=== PATIENT | male | born 1955 ===

== ENCOUNTER 2016-05-09 07:05 | Observation (INO) | payer OTHER ==
--- NOTE | 2016-05-09 07:49 | ED PDOC ---
HPI: General Adult Time Seen by Provider: 05/09/16 07:37 Chief Complaint (Nursing): Abdominal Pain Chief Complaint (Provider): abdominal swelling History Per: Patient History/Exam Limitations: no limitations Additional Complaint(s): 60yo male w/ Hx Hep C, cirrhosis, ascites, comes to the ED complaining of abdominal bloating. States he was seen by Dr. Ponce and referred here for further evaluation. Denies any pain but notes he was previously admitted to [place] for similar complaints. PMD: Rosario Past Medical History Reviewed: Historical Data, Nursing Documentation, Vital Signs Vital Signs: Last Vital Signs Temp 98 F 05/09/16 14:13 Pulse 73 05/09/16 15:23 Resp 20 05/09/16 15:23 BP 110/70 05/09/16 15:23 Pulse Ox 98 05/09/16 15:23 - Medical History PMH: Arthritis, Hepatitis (C), HTN, Pancreatitis, Peripheral Edema Denies: HIV, Chronic Kidney Disease - Family History Family History: States: Unknown Family Hx - Social History Current smoker - smoking cessation education provided: Yes - Immunization History Hx Tetanus Toxoid Vaccination: No Hx Influenza Vaccination: No Hx Pneumococcal Vaccination: No - Home Medications Home Medications: Ambulatory Orders Medication Instructions Recorded rifAXIMin [Xifaxan] 550 mg PO BID 04/10/16 Pantoprazole [Protonix] 40 mg PO DAILY #30 ect 04/12/16 Eplerenone [Inspra] 50 mg PO DAILY 05/09/16 Ergocalciferol (Vitamin D2) 50,000 unit PO QWK 05/09/16 [Vitamin D2] Ferrous Sulfate [Feosol] 325 mg PO TID 05/09/16 Furosemide [Lasix] 20 mg PO DAILY 05/09/16 Lactulose [Generlac] 30 ml PO TID PRN 05/09/16 Nadolol [Corgard] 20 mg PO DAILY 05/09/16 Pramipexole [Mirapex] 0.25 mg PO HS 05/09/16 - Allergies Allergies/Adverse Reactions: Allergies Allergy/AdvReac Type Severity Reaction Status Date / Time No Known Allergies Allergy Verified 05/09/16 07:39 Review of Systems ROS Statement: Except As Marked, All Systems Reviewed And Found Negative Gastrointestinal: Positive for: Other (bloating). Negative for: Abdominal Pain Physical Exam - Reviewed Nursing Documentation Reviewed: Yes Vital Signs Reviewed: Yes - Physical Exam Appears: Positive for: Well, Non-toxic, No Acute Distress Head Exam: Positive for: ATRAUMATIC, NORMAL INSPECTION, NORMOCEPHALIC Skin: Positive for: Warm, Dry Eye Exam: Positive for: EOMI, PERRL Cardiovascular/Chest: Positive for: Regular Rate, Rhythm Respiratory: Positive for: Normal Breath Sounds. Negative for: Rales, Rhonchi, Wheezing Gastrointestinal/Abdominal: Positive for: Soft, Distended (softly), Asicites, Other (site of prior drain on left abdomen is clean, intact, -erythema.). Negative for: Tenderness (focal) Extremity: Positive for: Normal ROM Neurologic/Psych: Positive for: Alert, Oriented - Laboratory Results Result Diagrams: 05/09/16 08:12 05/09/16 08:12 - ECG O2 Sat by Pulse Oximetry: 98 (RA) Pulse Ox Interpretation: Normal Medical Decision Making Medical Decision Makin: US Abdomen, Labs ordered. 1240 US Abdomen Impression Cirrhotic appearance of the liver with heterogenous echogenic hepatic parenchyma and nodular hepatic contour. Small to moderate ascites. Wall echo shadow appearance of the gallbladder compatible with cholelithiasis. Gallbladder wall thickness is top-normal. Negative sonographic Aden's sign as assessed by the business analysis specialist. Paracentesis performed by Dr Cali. Remains hemodynamically stable 90min after procedure. Feels better. DC from ED, followup PMD with liver instructions. Disposition - Clinical Impression Clinical Impression: Ascites - Patient ED Disposition Is Patient to be Admitted: No Counseled Patient/Family Regarding: Studies Performed, Diagnosis, Need For Followup - Disposition Disposition: Routine/Home Disposition Time: 12:46 Condition: STABLE Additional Comments - Additional Comments Additional Comments: Scribe Attestation: Documented by Garrick Lujan acting as a scribe for Musa Oneil DO. Provider Scribe Attestation: All medical record entries made by the Scribe were at my direction and personally dictated by me. I have reviewed the chart and agree that the record accurately reflects my personal performance of the history, physical exam, medical decision making, and the department course for this patient. I have also personally directed, reviewed, and agree with the discharge instructions and disposition.
[2016-05-09 08:20] LABS: BASO # 0.1 K/uL (0.0-0.2); BASO % 1.2 % (0.0-2.0); EOS # 0.2 K/uL (0.0-0.7); EOS % 3.8 % (0.0-4.0); HEMATOCRIT 29.4 % (35.0-51.0); LYMPH # 1.1 K/uL (1.0-4.3); LYMPH % 24.5 % (20.0-40.0); MEAN CELL VOLUME 100.6 fl (80.0-94.0); MEAN CORPUSCULAR HEMOGLOBIN 34.4 pg (27.0-31.0); MEAN CORPUSCULAR HGB CONC 34.2 g/dL (33.0-37.0); MEAN PLATELET VOLUME 9.3 fl (7.2-11.7); MONO # 0.6 K/uL (0.0-0.8); MONO % 13.1 % (0.0-10.0); NEUT # 2.5 K/uL (1.8-7.0); NEUT % 57.4 % (50.0-75.0); NRBC % 0.1 % (0.0-0.0); RED CELL DISTRIBUTION WIDTH 17.7 % (11.5-14.5); WHITE BLOOD COUNT 4.4 K/uL (4.8-10.8)
[2016-05-09 08:27] LABS: ALB/GLOB RATIO 0.6 (1.0-2.1); ALKALINE PHOSPHATASE 162 U/L (38-126); ALT/SGPT 55 U/L (21-72); AST/SGOT 84 U/L (17-59); BILIRUBIN,TOTAL 0.7 mg/dl (0.2-1.3); BLOOD UREA NITROGEN 27 mg/dl (9-20); CALCIUM 8.4 mg/dL (8.4-10.2); CARBON DIOXIDE 25 mmol/L (22-30); CHLORIDE 109 mmol/L (98-107); GFR AFRICAN-AMERICAN > 60; GLUCOSE,RANDOM 108 mg/dL (75-110); LIPASE 289 U/L (23-300); POTASSIUM 4.1 MMOL/L (3.6-5.0); SODIUM 145 mmol/l (132-148); TOTAL PROTEIN 7.1 G/DL (6.3-8.2)
[2016-05-09 08:57] LABS: PARTIAL THROMBOPLASTIN TIME 29.2 SECONDS (23.3-32.5)
--- NOTE | 2016-05-09 09:22 | US ---
HISTORY: evaluate for ascites COMPARISON: CT abdomen pelvis with contrast performed 04/10/16 TECHNIQUE: Sonographic evaluation of the right upper quadrant of the abdomen. FINDINGS: Examination limited by patient difficulty with breath hold. LIVER: Measures 12.7 cm in length. Heterogeneous echogenic hepatic parenchyma. Nodular hepatic contour. No focal hepatic mass identified. No intrahepatic bile duct dilatation. GALLBLADDER: Gallbladder wall appears top normal measuring approximately 3 mm. No evidence of gallbladder wall thickening. Negative sonographic Aden sign. Wall echo shadow appearance of the gallbladder consistent with cholelithiasis. COMMON BILE DUCT: Measures 4 mm. PANCREAS: Not well-visualized. RIGHT KIDNEY: Measures 10.1 x 5.8 x 4.4 cm. No obstructing calculus or hydronephrosis. AORTA: Limited visualization appears grossly unremarkable. IVC: Limited visualization appears grossly unremarkable. OTHER FINDINGS: Small to moderate abdominal ascites. IMPRESSION: Limited study. Cirrhotic appearance of the liver with heterogeneous echogenic hepatic parenchyma and nodular hepatic contour. Small to moderate abdominal ascites. Wall echo shadow appearance of the gallbladder compatible with cholelithiasis. Gallbladder wall thickness is top-normal. Negative sonographic Aden's sign as assessed by the urban design consultant.
[2016-05-09 10:41] LABS: URINE BILIRUBIN NEGATIVE (NEGATIVE); URINE BLOOD NEGATIVE (NEGATIVE); URINE COLOR YELLOW (YELLOW); URINE GLUCOSE (UA) NEGATIVE (Normal); URINE KETONE TRACE mg/dL (NEGATIVE); URINE PROTEIN 100 mg/dL (NEGATIVE)
[2016-05-09 10:42] LABS: RBC URINE 4 /hpf (0-3); URINE BACTERIA RARE (<OCC); URINE LEUKOCYTE ESTERASE NEGATIVE Leu/uL (Negative); WBC URINE < 1 /hpf (0-5)
[2016-05-09] MEDS ORDERED: Lidocaine 1% Inj (20ml) ONE (13:38)
--- NOTE | 2016-05-09 14:42 | PCM.SURG1 ---
Surgeon's Initial Post Op Note - Surgeon's Notes Surgeon: Karely Script Girl: None Type of Anesthesia: Local Pre-Operative Diagnosis: Ascites. Operative Findings: Ascites. Post-Operative Diagnosis: Ascites. Operation Performed: Paracentesis Specimen/Specimens Removed: Approx 2.8L of clear pale yellow fluid aspirated. Estimated Blood Loss: EBL {In ML}: 1 Date of Surgery/Procedure: 05/09/16 Time of Surgery/Procedure: 13:00
[2016-05-09 15:24] VITALS: O2SAT 98
--- NOTE | 2016-05-09 16:23 | VASCULAR ---
Ultrasound guided paracentesis. Clinical History: Ascites with abdominal pain and distension. Technique: The relative risks and indications for the procedure were explained to the patient and informed written consent obtained. Sonography of the abdomen was performed in a supine position. This revealed a small amount of non-loculated ascites, greatest in the right lower quadrant. A puncture site was selected and the area was prepped and draped in the usual sterile fashion. 1% lidocaine was used to anesthetize the skin and soft tissues. A 5 Georgian paracentesis catheter was trocared into the right lower quadrant under real time ultrasound guidance. A permanent image was stored. Approximately 2800 cc of shaista fluid aspirated. Impression: Ultrasound-guided paracentesis in the right lower quadrant. Approximately 2800 cc of shaista colored fluid was aspirated.
[2016-05-09 17:34] VITALS: PULSE 78
[2016-05-09 17:35] VITALS: BP 128/76; RESP 19; TEMP 97.7
== END 2016-05-09 18:06 | disposition home or self-care (01) ==
LOC: H.ER 07:05 → H.EROBSV 12:46
PROVIDERS: ADMIT Emergency Medicine; ATTEND Emergency Medicine
DX: R18.8 Other ascites (principal); K74.60 Unspecified cirrhosis of liver; Z86.19 Personal history of other infectious and parasitic diseases

== ENCOUNTER 2016-06-13 10:55 | Emergency (ER) | payer OTHER ==
[2016-06-13 11:21] VITALS: RESP 18
--- NOTE | 2016-06-13 11:37 | ED PDOC ---
HPI: General Adult Time Seen by Provider: 06/13/16 11:23 Chief Complaint (Nursing): Medical Clearance History Per: Patient (Increased abd distention worse over past 3 days. No fever or pain) Onset/Duration Of Symptoms: Days (3) Current Symptoms Are (Timing): Still Present Severity: Moderate Pain Scale Rating Of: 0 Past Medical History Vital Signs: Last Vital Signs Temp 98.1 F 06/13/16 13:54 Pulse 71 06/13/16 14:44 Resp 18 06/13/16 13:54 BP 108/66 06/13/16 14:44 Pulse Ox 99 06/13/16 13:54 - Medical History PMH: Arthritis, Hepatitis (C), HTN, Pancreatitis, Peripheral Edema Denies: HIV, Chronic Kidney Disease Other PMH: Ascites - Family History Family History: States: Unknown Family Hx - Immunization History Hx Tetanus Toxoid Vaccination: No Hx Influenza Vaccination: No Hx Pneumococcal Vaccination: No - Home Medications Home Medications: Ambulatory Orders Medication Instructions Recorded rifAXIMin [Xifaxan] 550 mg PO Q12 04/10/16 Eplerenone [Inspra] 50 mg PO DAILY 05/09/16 Furosemide [Lasix] 40 mg PO DAILY 05/09/16 Lactulose [Generlac] 45 ml PO DAILY 05/09/16 Nadolol [Corgard] 20 mg PO DAILY 05/09/16 Ropinirole HCl [Requip] 2 tab PO HS 06/13/16 - Allergies Allergies/Adverse Reactions: Allergies Allergy/AdvReac Type Severity Reaction Status Date / Time No Known Allergies Allergy Verified 06/13/16 11:23 Review of Systems ROS Statement: Except As Marked, All Systems Reviewed And Found Negative Gastrointestinal: Positive for: Other (Distention) Physical Exam - Reviewed Nursing Documentation Reviewed: Yes Vital Signs Reviewed: Yes - Physical Exam Appears: Positive for: Non-toxic, No Acute Distress Head Exam: Positive for: ATRAUMATIC, NORMAL INSPECTION, NORMOCEPHALIC Skin: Positive for: Normal Color, Warm, DRY Eye Exam: Positive for: EOMI, Normal appearance, PERRL ENT: Positive for: Normal ENT Inspection Neck: Positive for: Normal, Painless ROM Cardiovascular/Chest: Positive for: Regular Rate, Rhythm Respiratory: Positive for: CNT, Normal Breath Sounds Gastrointestinal/Abdominal: Positive for: Bowel Sounds, Soft, Distended, Asicites (tense with fluid waves) Back: Positive for: Normal Inspection Extremity: Positive for: Swelling Neurologic/Psych: Positive for: Alert, Oriented - Laboratory Results Result Diagrams: 06/13/16 11:57 06/13/16 11:57 - ECG O2 Sat by Pulse Oximetry: 100 Disposition - Clinical Impression Clinical Impression: Liver cirrhosis, Ascites - Patient ED Disposition Is Patient to be Admitted: No - Disposition Referrals: [facility] [Outside] Disposition: Routine/Home Disposition Time: 14:52 Condition: FAIR Instructions: Ascites (ED), Abdominal Paracentesis (DC)
[2016-06-13 12:07] LABS: BASO # 0.1 K/uL (0.0-0.2); BASO % 1.1 % (0.0-2.0); EOS # 0.1 K/uL (0.0-0.7); EOS % 1.6 % (0.0-4.0); HEMATOCRIT 25.1 % (35.0-51.0); LYMPH # 1.3 K/uL (1.0-4.3); LYMPH % 23.6 % (20.0-40.0); MEAN CORPUSCULAR HGB CONC 32.7 g/dL (33.0-37.0); MEAN PLATELET VOLUME 8.8 fl (7.2-11.7); MONO # 0.8 K/uL (0.0-0.8); MONO % 13.7 % (0.0-10.0); NEUT # 3.4 K/uL (1.8-7.0); NRBC % 0.1 % (0.0-0.0); RED CELL DISTRIBUTION WIDTH 17.9 % (11.5-14.5); WHITE BLOOD COUNT 5.6 K/uL (4.8-10.8)
[2016-06-13 12:11] LABS: MEAN CELL VOLUME 97.8 fl (80.0-94.0)
[2016-06-13 12:24] LABS: ALKALINE PHOSPHATASE 143 U/L (38-126); ALT/SGPT 55 U/L (21-72); AST/SGOT 84 U/L (17-59); BILIRUBIN,TOTAL 0.9 mg/dl (0.2-1.3); BLOOD UREA NITROGEN 35 mg/dl (9-20); CALCIUM 8.8 mg/dL (8.4-10.2); CARBON DIOXIDE 20 mmol/L (22-30); CHLORIDE 115 mmol/L (98-107); GFR AFRICAN-AMERICAN > 60; GLUCOSE,RANDOM 101 mg/dL (75-110); POTASSIUM 5.3 MMOL/L (3.6-5.0); SODIUM 145 mmol/l (132-148); TOTAL PROTEIN 7.5 G/DL (6.3-8.2)
[2016-06-13 12:27] LABS: ALB/GLOB RATIO 0.6 (1.0-2.1)
[2016-06-13] MEDS ORDERED: Lidocaine 1% Inj (20ml) ONE (13:38)
[2016-06-13 13:56] VITALS: TEMP 98.1
--- NOTE | 2016-06-13 14:28 | PCM.SURG1 ---
Surgeon's Initial Post Op Note - Surgeon's Notes Surgeon: Yadiel Howe MD Community Health Specialist: NONE Type of Anesthesia: Local Pre-Operative Diagnosis: Ascites Operative Findings: US showed a moderate amount of ascites Post-Operative Diagnosis: Ascites Operation Performed: US guided paracentesis. Specimen/Specimens Removed: 3800 cc of clear fluid Estimated Blood Loss: EBL {In ML}: 0 Blood Products Given: N/A Drains Used: No Drains Post-Op Condition: Fair Date of Surgery/Procedure: 06/13/16 Time of Surgery/Procedure: 14:20
[2016-06-13 14:45] VITALS: BP 108/66; PULSE 71
[2016-06-13 14:52] VITALS: O2SAT 100
--- NOTE | 2016-06-13 14:58 | US ---
Date of Procedure: 06/13/2016 PROCEDURE: Ultrasound-guided paracentesis, CPT 06848 Medications: 8cc 1% Lidocaine HISTORY: Ascites, abdominal pain, cirrhosis TECHNIQUE: Following informed consent , the patient was placed supine on the stretcher and the site was marked. A limited abdominal ultrasound was performed that showed a large amount of intra-abdominal fluid. Procedural time out was called and the Pt's abdomen was marked and prepped and draped in the usual sterile fashion. Ultrasound-guided large volume paracentesis performed. A total of 3.8 liters of straw colored fluid was removed without complication. IMPRESSION: Ultrasound-guided large volume paracentesis.
== END 2016-06-13 15:16 | disposition home or self-care (01) ==
LOC: H.ER 10:55
DX: K74.60 Unspecified cirrhosis of liver (principal); R18.8 Other ascites; B19.20 Unspecified viral hepatitis C without hepatic coma

== ENCOUNTER 2016-06-23 11:34 | Day surgery (SDC) | payer OTHER ==
[2016-06-23 11:58] VITALS: BMI 26.7
[2016-06-23 12:03] VITALS: O2SAT 100
[2016-06-23] MEDS ORDERED: Lidocaine 1% Inj (20ml) ONE (13:17)
--- NOTE | 2016-06-23 14:30 | CP.SDSHP ---
Same Day Surgery H & P - History Proposed Procedure: US guided paracentesis. Pre-Op Diagnosis: ascites - Allergies Allergies: Allergies No Known Allergies Allergy (Verified 06/13/16 11:23) - Physical Exam Vital Signs: Vital Signs 06/23/16 06/23/16 06/23/16 12:03 12:06 14:27 Temperature 98.2 F 97.3 F L Pulse Rate 79 79 72 Respiratory 18 18 Rate Blood Pressure 112/79 114/72 O2 Sat by Pulse 100 100 Oximetry Mental Status: Alert & Oriented x3 Neuro: WNL Heart: WNL Lungs: WNL GI: WNL - {Optional Preform as Required} Abdomen: Other (distended, non tender) - Impression Impression: Pt with refractory ascites. Plan US guided paracentesis. Pt. Evaluated Today:Candidate for Anesthesia & Procedure: No Short Stay Discharge - Short Stay Discharge Admitting Diagnosis/Reason for Visit: CIRRHOSIS OF THE LIVER Referrals: Juice Ponce MD [Primary Care Provider] - Progress Note/Discharge Note with Instructions: S/P paracentesis. There were no complications.
--- NOTE | 2016-06-23 14:31 | PCM.SURG1 ---
Surgeon's Initial Post Op Note - Surgeon's Notes Surgeon: Yadiel Howe MD Sporting Goods Salesperson: NONE Type of Anesthesia: Local Pre-Operative Diagnosis: Ascites Operative Findings: US showed a large amount of fluid Post-Operative Diagnosis: Ascites Operation Performed: US guided paracentesis. Specimen/Specimens Removed: 5.2liters of straw colored fluid. Estimated Blood Loss: EBL {In ML}: 1 Blood Products Given: N/A Drains Used: No Drains Post-Op Condition: Fair Date of Surgery/Procedure: 06/23/16 Time of Surgery/Procedure: 14:54
[2016-06-23 15:26] VITALS: BP 113/69; PULSE 83; RESP 18; TEMP 97.7
--- NOTE | 2016-06-23 15:27 | US ---
Date of Procedure: 06/23/2016 PROCEDURE: Ultrasound-guided paracentesis, CPT 37593 Medications: 8 cc 1% Lidocaine HISTORY: Ascites, abdominal pain, cirrhosis TECHNIQUE: Following informed consent , the patient was placed supine on the stretcher and the site was marked. A limited abdominal ultrasound was performed that showed a large amount of intra-abdominal fluid. Procedural time out was called and the Pt's abdomen was marked and prepped and draped in the usual sterile fashion. Ultrasound-guided large volume paracentesis performed. A total of 5.2 liters of straw colored fluid was removed without complication. IMPRESSION: Ultrasound-guided large volume paracentesis.
== END 2016-06-23 15:00 | disposition home or self-care (01) ==
LOC: H.OPSURG 11:34
PROVIDERS: ATTEND Family Medicine
DX: R18.8 Other ascites (principal); K74.60 Unspecified cirrhosis of liver

== ENCOUNTER 2016-07-04 08:30 | Observation (INO) | payer OTHER ==
[2016-07-04 08:31] VITALS: BMI 26.7
--- NOTE | 2016-07-04 09:14 | ED PDOC ---
HPI: General Adult Time Seen by Provider: 07/04/16 09:06 Chief Complaint (Nursing): Abdominal Pain Chief Complaint (Provider): abdominal pain & bloating History Per: Patient History/Exam Limitations: no limitations Additional Complaint(s): 60yo male w/ Hx Hep C, liver cirrhosis, is complaining of abdominal pain since 3 -4am today. Patient states he has paracentesis several weeks ago. Describes pain today as similar to what he experienced when he had food poisoning in the past. He has dizziness. No chest pain, vomit, fever. States chronic diarrhea is associated with lactulose use. Unsure of Hx bacterial peritonitis. PMD: Rosario Hepatology: at [place] Past Medical History Reviewed: Historical Data, Nursing Documentation, Vital Signs Vital Signs: Last Vital Signs Temp 97.5 F L 07/04/16 11:19 Pulse 61 07/04/16 11:45 Resp 18 07/04/16 11:45 BP 104/64 07/04/16 11:45 Pulse Ox 99 07/04/16 11:19 - Medical History PMH: Arthritis, Hepatitis (C), HTN, Pancreatitis, Peripheral Edema Denies: HIV, Chronic Kidney Disease - Family History Family History: States: Unknown Family Hx - Immunization History Hx Tetanus Toxoid Vaccination: No Hx Influenza Vaccination: No Hx Pneumococcal Vaccination: No - Home Medications Home Medications: Ambulatory Orders Medication Instructions Recorded rifAXIMin [Xifaxan] 550 mg PO Q12 04/10/16 Eplerenone [Inspra] 50 mg PO DAILY 05/09/16 Furosemide [Lasix] 40 mg PO DAILY 05/09/16 Lactulose [Generlac] 30 ml PO DAILY PRN 05/09/16 Nadolol [Corgard] 20 mg PO DAILY 05/09/16 Ropinirole HCl [Requip] 1 mg PO HS 06/13/16 Ergocalciferol (Vitamin D2) 50,000 unit PO QWK 07/04/16 [Vitamin D2] Furosemide [Lasix] 20 mg PO QPM 07/04/16 Pantoprazole Sodium [Protonix] 40 mg PO DAILY 07/04/16 - Allergies Allergies/Adverse Reactions: Allergies Allergy/AdvReac Type Severity Reaction Status Date / Time No Known Allergies Allergy Verified 07/04/16 08:49 Review of Systems ROS Statement: Except As Marked, All Systems Reviewed And Found Negative Constitutional: Negative for: Fever, Chills Cardiovascular: Negative for: Chest Pain, Palpitations Respiratory: Negative for: Cough, Shortness of Breath, SOB with Exertion Gastrointestinal: Positive for: Nausea, Abdominal Pain, Diarrhea (chronic), Other (abdominal bloating). Negative for: Vomiting Genitourinary Male: Negative for: Dysuria Neurological: Positive for: Dizziness. Negative for: Weakness, Numbness Physical Exam - Reviewed Nursing Documentation Reviewed: Yes Vital Signs Reviewed: Yes - Physical Exam Appears: Positive for: Well, Non-toxic, No Acute Distress Head Exam: Positive for: ATRAUMATIC, NORMAL INSPECTION, NORMOCEPHALIC Skin: Positive for: Normal Color, Warm, Dry Eye Exam: Positive for: EOMI, PERRL Cardiovascular/Chest: Positive for: Regular Rate, Rhythm Respiratory: Positive for: Normal Breath Sounds. Negative for: Rales, Rhonchi, Wheezing Gastrointestinal/Abdominal: Positive for: Soft, Distended, Asicites, Other (+ fluid wave). Negative for: Tenderness, Guarding, Rebound Back: Positive for: Normal Inspection Extremity: Positive for: Normal ROM Neurologic/Psych: Positive for: Alert - Laboratory Results Result Diagrams: 07/04/16 09:50 07/04/16 09:50 - ECG O2 Sat by Pulse Oximetry: 99 (RA) Pulse Ox Interpretation: Normal Medical Decision Making Medical Decision Making: Diffential: gastroenteritis, spontaneous bacterial peritonitis, pancreatitis. [address] Ponce PMD. Due to concern for SBP, will get large volume paracentesis with interventional radiology for diagnostic and therapeutic benefit. Dr. Howe aware of patient. 10:46 Labs reviewed and patient in acute renal failure. As PMD does not admit, spoke to Tom Murry who accepts patient for med/sx observation for acute renal failure and abdominal pain, r/o sbp. Blood culture and ceftriaxone ordered. Slow hydration ordered. Disposition - Clinical Impression Clinical Impression: Abdominal pain, Ascites, Renal failure - Disposition Disposition Time: 10:47 Condition: FAIR - Pt Status Changed To: Hospital Disposition Of: Observation Additional Comments - Additional Comments Additional Comments: Scribe Attestation Documented by Garrick Lujan acting as a scribe for Byron Boswell MD. Provider Attestation: All medical record entries made by the Scribe were at my direction and personally dictated by me. I have reviewed the chart and agree that the record accurately reflects my personal performance of the history, physical exam, medical decision making, and the department course for this patient. I have also personally directed, reviewed, and agree with the discharge instructions and disposition.
[2016-07-04 09:58] LABS: BASO % 0.6 % (0.0-2.0); EOS # 0.1 K/uL (0.0-0.7); EOS % 1.2 % (0.0-4.0); HEMATOCRIT 33.9 % (35.0-51.0); LYMPH # 1.4 K/uL (1.0-4.3); MEAN CELL VOLUME 97.2 fl (80.0-94.0); MEAN CORPUSCULAR HEMOGLOBIN 32.1 pg (27.0-31.0); MEAN PLATELET VOLUME 8.7 fl (7.2-11.7); MONO # 0.8 K/uL (0.0-0.8); MONO % 12.6 % (0.0-10.0); NEUT % 63.6 % (50.0-75.0); NRBC % 0.2 % (0.0-0.0); RED CELL DISTRIBUTION WIDTH 21.4 % (11.5-14.5); WHITE BLOOD COUNT 6.3 K/uL (4.8-10.8)
[2016-07-04 10:13] LABS: ALB/GLOB RATIO 0.6 (1.0-2.1); BILIRUBIN,TOTAL 1.3 mg/dl (0.2-1.3); CALCIUM 8.7 mg/dL (8.4-10.2); MAGNESIUM 2.2 MG/DL (1.6-2.3); PHOSPHOROUS 4.3 mg/dl (2.5-4.5); POTASSIUM 3.7 MMOL/L (3.6-5.0)
[2016-07-04 10:15] LABS: PARTIAL THROMBOPLASTIN TIME 29.4 SECONDS (23.3-32.5)
--- NOTE | 2016-07-04 11:18 | PCM.SURG1 ---
Surgeon's Initial Post Op Note - Surgeon's Notes Surgeon: Yadiel Howe MD Communications Media Professor: NONE Type of Anesthesia: Local Pre-Operative Diagnosis: Ascites, abdominal pain Operative Findings: US showed a large amount of ascites Post-Operative Diagnosis: Ascites, abdominal pain Operation Performed: US guided paracentesis. Specimen/Specimens Removed: 5000 cc of straw colored fluid Estimated Blood Loss: EBL {In ML}: 0 Blood Products Given: N/A Drains Used: No Drains Post-Op Condition: Fair Date of Surgery/Procedure: 07/04/16 Time of Surgery/Procedure: 11:35
[2016-07-04 12:01] LABS: BODY FLUID TYPE PERITONEAL/ASCITES
--- NOTE | 2016-07-04 12:01 | US ---
Date of Procedure: 07/04/2016 PROCEDURE: Ultrasound-guided paracentesis, CPT 12177 Medications: 8 cc 1% Lidocaine HISTORY: Ascites, abdominal pain, cirrhosis TECHNIQUE: Following informed consent , the patient was placed supine on the stretcher and the site was marked. A limited abdominal ultrasound was performed that showed a large amount of intra-abdominal fluid. Procedural time out was called and the Pt's abdomen was marked and prepped and draped in the usual sterile fashion. Ultrasound-guided large volume paracentesis performed. A total of 5 liters of straw colored fluid was removed without complication. Fluid specimen was sent for culture, sensitivity, cytology and chemistries. IMPRESSION: Ultrasound-guided large volume paracentesis.
[2016-07-04 12:35] LABS: LDH,BODY FLUID 276 IU (NONE ESTABLISHED)
[2016-07-04] MEDS ORDERED: cefTRIAXone (Rocephin) 1 gm Inj ONE (12:35)
[2016-07-04] MEDS: Sodium Chloride 0.9% 1,000 ML IV SCH ×2 (12:44→22:42)
--- NOTE | 2016-07-04 12:54 | CP.PCM.HP ---
History of Present Illness - History of Present Illness History of Present Illness: Hospitalist Admission H&P (Patient was seen and examined at 12:00 PM 07/04/16 in ER Bed #21 after his Paracentesis) PMD: Dr. Ponce CODE STATUS: FULL CODE. NO Living Will. Designates Jagdish San [phone] as his Health Care Proxy. CHIEF COMPLAINT: Abdominal Pain 60 year old male (PMHx Liver Cirrhosis/Hepatitis C, Esophageal Varices, Chronic Ascites, Chronic Anemia, Restless Leg Syndrome, Thrombocytopenia, Upper GI Bleed ) presented to [facility] ER earlier this morning by having his Daughter drive him here with a chief complaint of Abdominal Pain. Patient states that roughly 3 weeks ago he had paracentesis done at the [facility]. He awoke this morning between 3 and 4 AM with midabdominal pain and bilateral lower quadrant pain that is best described as an aching pain. He took some Tylenol and this reduced the pain "a little". The pain was worsened by him trying to stand on his feet and is reduced to the point of not feeling it if he lays flat. As the pain returned, he had his Daughter drive him here to the ER. Please note that the patient was last admitted to this institution from 04/10/16 through 04/12/16 when he had an Upper GI Bleed with Upper Endoscopy which showed Grade II Esophageal Varices. He is followed on an outpatient basis for his Liver Cirrhosis/Hepatitis C/Esophageal Varices/Chronic Ascites by GI Dr. Gibbs whom he last saw 2 weeks ago. As mentioned above, his last paracentesis was 3 weeks ago. He was also evaluated for the first time by GI Liver Trans[facility] Special[facility] [place] on 08/30/16 at which time patient was instructed to have blood work performed (for process of being placed on liver transplant list) 2 weeks before his next appointment with him scheduled for 09/15/16. Dr. Sousa has also instructed patient to have U /S Abdomen w/Doppler performed. Currently upon FULL ROS there is NO chest pain, NO Palpitations, NO SOB/Cough/ Wheezing, NO dysphagia/odynophagia, NO abdominal pain, NO n/v/d/c, NO Burning/ Pain with urination, NO lightheadedness/dizziness, NO headache, NO new changes in vision/eye pain, NO new changes in hearing/ear pain, NO paresthesias, NO peripheral edema PMHx: Liver Cirrhosis, Chronic Ascites, Hepatitis C, Thrombocytopenia, Anemia, Esophageal Varices, GI Bleed PSHx: Multiple Paracentesis ALL: NKDA Medications: Nadolol 20 mg PO 1x/day, Ropinirole 0.5mg 2 tab PO QHS, Eplerenone 50mg 1 tab PO 1x/day, Lasix 40 mg PO in AM and 20 mg PO in PM, Lactulose 45 mL ( 10 gram per 15 mL) PO 1x/day, Rifaximin 550 mg PO Q12H Social Hx: Lives Alone, 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, (+) Tobacco 4 to 5 cig/day , (+) Alcohol quit 15 years ago, (+)Cocaine Snorted and MJ quit 18 years ago Family Hx: Mom (Unspecified Lung Disease), Dad (Unspecified Liver Disease) Exam: HEENT: NCA, EOMI, PERRLA, Slight Scleral Icterus, NO cervical/supraclavicular/ submandibular lymphadenopathy, NO pharyngeal erythema/exudate, Oral Mucosa and Nasal Turbinates are moist Cardio: NS1 and NS2, NO M/R/G Resp: CTA B/L, NO R/R/W, GI: BSx4 are reduced, Distented Abdomen, Soft, Liver and Spleen could not be palpated, Ext: Pulses are strong and equal, Capillary Refill is 2 seconds, NO edema Neuro: CN II through XII are grossly intact Assessment and Plan: 1). Acute Renal Failure BUN/Cr has worsened as on 04/12/16 it was 21/0.9 with eGFR at 60 compared to today when BUN/Cr 30/2.4 with eGFR at 28 Likely secondary to the diuresis HOLD Lasix HOLD Eplerenone as it would be contraindicated in renal failure F/U further recommendations from Nephrology Consult Dr. Delores Mane NS at 100 mL per hour 2). Hx Liver Cirrhosis/Abdominal Ascites/Esophageal Varices/Hepatitis C Please see details in the HPI Nadolol 20 mg PO 1x/day at 2:30 PM Lactulose 30 gm PO 1x/day at 9 AM Rifaxmin 550 mg PO Q12H Patient already has Rx from Dr. Sousa [facility] to his scheduled appointment on 09/15/16. This labwork was not ordered as it appears that a lot of it would have to be sent to outside lab anyway and patient would prefer to have done at [facility] as instructed by Dr. Sousa U/S Abdomen Complete with Doppler ordered and report will need to be faxed to Dr. Sousa at [phone]. His office number is [phone] F/U Cultures from the Ascites Fluid that was removed today by IR Dr. Tatiana Howe NO GI consult ordered as patient has appropriate follow up scheduled for these issues 3). Hx Anemia/Thrombocytopenia This is likely secondary to the Liver Cirrhosis HgB/Hct and Platelets are stable 4). Hx Restless Leg Syndrome on the Right Ropinirole 0.5 mg 2 tab PO QHS 5). Prophylaxis Measure NO anticoagulation considering the history of GI Bleed secondary to Liver Cirrhosis/Esophageal Varices. Therefore Bilateral SCDs Protonix 40 mg PO 1x/day Heart Healthy 2 gm Na diet Present on Admission - Present on Admission Any Indicators Present on Admission: Yes History of DVT/PE: No History of Uncontrolled Diabetes: No Urinary Catheter: No Decubitus Ulcer Present: No Review of Systems - Review of Systems Review of Systems: Please see above Past Patient History - Infectious Disease Hx of Infectious Diseases: None - Tetanus Immunizations Tetanus Immunization: Unknown - Past Medical History & Family History Past Medical History?: Yes Pertinent Family History: Please see above - Past Social History Smoking Status: Light Smoker < 10 Cigarettes Daily - CARDIAC Hx Hypertension: Yes Hx Peripheral Edema: Yes - PULMONARY Hx Respiratory Disorders: No - NEUROLOGICAL Hx Neurological Disorder: Yes (Vertigo) Hx Dizziness: Yes - HEENT Hx HEENT Problems: No - RENAL Hx Chronic Kidney Disease: No - ENDOCRINE/METABOLIC Hx Endocrine Disorders: Yes (Hep C, cirrhosis) - HEMATOLOGICAL/ONCOLOGICAL Hx Human Immunodeficiency Virus (HIV): No - INTEGUMENTARY Hx Dermatological Problems: Yes 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 - MUSCULOSKELETAL/RHEUMATOLOGICAL Hx Arthritis: Yes - GASTROINTESTINAL Hx Pancreatitis: Yes - GENITOURINARY/GYNECOLOGICAL Hx Genitourinary Disorders: No - PSYCHIATRIC Hx Psychophysiologic Disorder: Yes Hx Emotional Abuse: No Hx Physical Abuse: No Hx Substance Use: Yes (quit 14 yrs ago, [facility]) - SURGICAL HISTORY Hx Surgeries: Yes Other/Comment: for deviated septum - ANESTHESIA Hx Anesthesia: Yes Hx Anesthesia Reactions: No Hx Malignant Hyperthermia: No Meds Allergies/Adverse Reactions: Allergies Allergy/AdvReac Type Severity Reaction Status Date / Time No Known Allergies Allergy Verified 07/04/16 08:49 Physical Exam - Constitutional Additional comments: Please see above Results - Vital Signs Recent Vital Signs: Last Vital Signs Temp 98.2 F 07/04/16 12:15 Pulse 56 L 07/04/16 12:15 Resp 20 07/04/16 12:15 BP 121/73 07/04/16 12:15 Pulse Ox 100 07/04/16 12:15 - Labs Result Diagrams: 07/04/16 09:50 07/04/16 09:50 Labs: Laboratory Results - last 24 hr 07/04/16 07/04/16 11:58 11:58 Fluid Source Peritoneal/ascites Fluid Glucose Cancelled 103 Fluid Total Protein < 2.0 Fluid LDH 276
[2016-07-04 13:06] LABS: BF GROSS APPEARANCE CLEAR (CLEAR)
[2016-07-04] MEDS ORDERED: Pantoprazole 40 mg EC Tab PO ONE (13:16)
[2016-07-04] MEDS: Pantoprazole 40 mg EC Tab PO SCH (13:25)
[2016-07-04 13:50] LABS: BODY FLUID TOTAL COUNT 100 (0-0)
--- NOTE | 2016-07-04 17:58 | CP.PCM.CON ---
History of Present Illness - History of Present Illness History of Present Illness: Initial Nephrology Consultation: Assessment: Acute Kidney Injury ? etiology. Differential include hemodynamics due to combination of diuretics and MR lara versus Intra-abdomen HTN due to ascites or hepatorenal syndrome Cirrhosis of liver with portal HTN and ascites chronic hep c s/p treatment with Harvoni active smoker Plan agree to hold diuretics and eplerenone continue with volume resus with NS as ordered. will repeat BMP tonight and in AM ascitic therapeutic drainage as per primary team, consider to supplement IV albumin with paracentesis. will check urine studies as ordered avoid nephrotoxins/contrast/NSAIDs dose meds for reduced GFR. smoking cessation Thanks for allowing me to participate in care of your patient. Will follow patient with you. Please call if any Qs Dr Primitivo James Office: [phone] Chief Complaint; abdomen distension and pain HPI: Pt is a 89 y/o M with hx of chronic hep c s/p treatment with harvoni 2 years ago but now has cirrhosis of liver with portal hypertension and recurrent ascites requiring therapeutic drainage every 3-4 weeks as per patient for last few months, came to ER c/o worsening abdomen distension and pain since today. he denies SOB/urinary complaints. he had ascitic drainage when came to ER today Denies chest pain, palpitation, shortness of breath. no blood in urine or burning sensation Denies OTC/herbal meds or NSAIDs ROS: Constitutional Symptoms: Denies fever. No chills. Eyes: denies change in vision, denies watery eyes, denies double vision Ears/Nose/Mouth/Throat: Denies Abnormal Taste. No Bad breath or Bad Taste. Cardiovascular: No chest pain. There is no shortness of breath. No palpitations. Pulmonary: No shortness of breath or cough. Gastrointestinal: c/o abdominal pain with distension No nausea. No vomiting. Denies Bleeding Genitourinary: no blood in urine no painful urination Neurological: Denies headaches. No dizziness. Denies loss of balance. Denies weakness, denies tingling/numbness Dermatological: No Rash or Bruising or ulcers. Psychiatric: Denies Anxiety. No depression. Denies hallucinations. Rheumatological: no swelling. has chronic leg pains due to restless leg syndrome Endocrine: Denies over tiredness. Denies Fatigue and Heat/Cold Intolerance. Physical Examination: General Appearance: Comfortable, in no acute respiratory distress, co-operative . Vitals reviewed and noted as below Head; Atraumatic, normocephalic ENT: no ulcers no thrush. Tongue is midline. Oropharynx: no rash or ulcers. EYES: Pupils are equal, round and reactive to light accommodation. Eye muscles and extraocular movement intact. Sclera is anicteric. Neck; supple no lymphadenopathy, no thyromegaly or bruit Lungs: Normal respiratory rate/effort. Breath sounds clear and bilateral equal Heart: Normal rate. s1s2 normal. No rub or gallop. Extremities: trace edema . no varicose veins. chronic hyperpigmented changes in legs probably due to chronic venous stasis Neurological: Patient is alert, awake and oriented to person, place and time. No focal deficit. Strength bilateral appropriate and equal Skin: Warm and dry. Normal turgor. No rash. Palpitation: Normal elasticity for age Abdomen: Abdomen is soft. Bowel sounds +. has ascites, somewhat tense to palpate , pt says it is better than before. no guarding/rigidity or organomegaly. Psych: normal insight and normal affect/mood MSK: no joint tenderness or swelling. Digits and nails normal, no deformity : kidney or bladder not palpable. Labs/imaging/EKG reviewed. Past medical history, past surgical history, family history, social history, allergy reviewed and noted as below Past Patient History - Infectious Disease Hx of Infectious Diseases: None - Tetanus Immunizations Tetanus Immunization: Unknown - Past Medical History & Family History Past Medical History?: Yes - Past Social History Smoking Status: Light Smoker < 10 Cigarettes Daily - CARDIAC Hx Hypertension: Yes Hx Peripheral Edema: Yes - PULMONARY Hx Respiratory Disorders: No - NEUROLOGICAL Hx Neurological Disorder: Yes (Vertigo) Hx Dizziness: Yes - HEENT Hx HEENT Problems: No - RENAL Hx Chronic Kidney Disease: No - ENDOCRINE/METABOLIC Hx Endocrine Disorders: Yes (Hep C, cirrhosis) - HEMATOLOGICAL/ONCOLOGICAL Hx Human Immunodeficiency Virus (HIV): No - INTEGUMENTARY Hx Dermatological Problems: Yes 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) - SURGICAL HISTORY Hx Surgeries: Yes Other/Comment: for deviated septum - ANESTHESIA Hx Anesthesia: Yes Hx Anesthesia Reactions: No Hx Malignant Hyperthermia: No Meds Allergies/Adverse Reactions: Allergies Allergy/AdvReac Type Severity Reaction Status Date / Time No Known Allergies Allergy Verified 07/04/16 08:49 - Medications Medications: Current Medications Acetaminophen (Tylenol 325mg Tab) 650 mg PO Q6 PRN PRN Reason: Pain, Mild (1-3) Last Admin: 07/04/16 13:25 Dose: 650 mg Home Med (Ropinirole Hcl [Requip]) 1 mg PO HS [facility] Sodium Chloride (Sodium Chloride 0.9%) 1,000 mls @ 100 mls/hr IV .Q10H [facility] Stop: 07/05/16 11:00 Last Admin: 07/04/16 12:44 Dose: 100 mls/hr Nadolol (Corgard) 20 mg PO DAILY [facility] Last Admin: 07/04/16 14:47 Dose: Not Given Pantoprazole Sodium (Protonix Ec Tab) 40 mg PO DAILY [facility] Last Admin: 07/04/16 13:25 Dose: 40 mg Rifaximin (Xifaxan) 550 mg PO Q12 [facility] Results - Vital Signs Recent Vital Signs: Last Vital Signs Temp 97.5 F L 07/04/16 16:30 Pulse 61 07/04/16 16:30 Resp 20 07/04/16 16:30 BP 92/51 L 07/04/16 16:30 Pulse Ox 100 07/04/16 16:30 - Labs Result Diagrams: 07/04/16 09:50 07/04/16 09:50 Labs: Laboratory Results - last 24 hr 07/04/16 07/04/16 11:58 11:58 Fluid Source Peritoneal/ascites Fluid Appearance Clear Fluid WBC 56.0 Fluid RBC 142.0 H Fluid Tot Cell Count 100 H Fluid Neutrophils 8.0 H Fluid Lymphocytes 50.0 H Fld Monocyte/Macrophag 42 H Fluid Glucose Cancelled 103 Fluid Total Protein < 2.0 Fluid LDH 276 Fluid Comment Light yellow
[2016-07-04 19:04] LABS: CALCIUM 8.5 mg/dL (8.4-10.2)
[2016-07-04] MEDS ORDERED: Albumin Human 25% (12.5 gm/50 ml) IV ONE (19:32)
[2016-07-04] MEDS ORDERED: ROPINIROLE HCL 1 MG PO SCH (22:00)
[2016-07-05] MEDS: Sodium Chloride 0.9% 1,000 ML IV SCH (01:54)
[2016-07-05 05:31] LABS: CREATININE, RANDOM URINE 242.4 mg/dL
[2016-07-05 05:35] LABS: RBC URINE 1 /hpf (0-3); URINE BILIRUBIN NEGATIVE (NEGATIVE); URINE BLOOD NEGATIVE (NEGATIVE); URINE COLOR YELLOW (YELLOW); URINE GLUCOSE (UA) NEG (Normal); URINE KETONE NEGATIVE (NEGATIVE); URINE LEUKOCYTE ESTERASE NEG Leu/uL (Negative); URINE PROTEIN NEGATIVE (NEGATIVE); URINE UROBILINOGEN 0.2-1.0 mg/dL (0.2-1.0); WBC URINE 3 /hpf (0-5)
[2016-07-05 07:03] LABS: BASO % 0.6 % (0.0-2.0); EOS # 0.1 K/uL (0.0-0.7); HEMATOCRIT 28.5 % (35.0-51.0); LYMPH # 0.8 K/uL (1.0-4.3); LYMPH % 12.7 % (20.0-40.0); MEAN CELL VOLUME 97.3 fl (80.0-94.0); MEAN CORPUSCULAR HEMOGLOBIN 31.6 pg (27.0-31.0); MEAN CORPUSCULAR HGB CONC 32.5 g/dL (33.0-37.0); MEAN PLATELET VOLUME 8.7 fl (7.2-11.7); MONO # 0.8 K/uL (0.0-0.8); MONO % 11.6 % (0.0-10.0); NEUT # 4.8 K/uL (1.8-7.0); NEUT % 74.1 % (50.0-75.0); RED CELL DISTRIBUTION WIDTH 21.2 % (11.5-14.5); WHITE BLOOD COUNT 6.5 K/uL (4.8-10.8)
[2016-07-05 07:22] LABS: POTASSIUM 3.7 MMOL/L (3.6-5.0)
[2016-07-05 08:43] VITALS: PULSE 72; TEMP 98.7; O2SAT 100
[2016-07-05] MEDS ORDERED: Albumin Human 25% (12.5 gm/50 ml) IV ONE (08:45)
[2016-07-05] MEDS: Pantoprazole 40 mg EC Tab PO SCH (10:02)
--- NOTE | 2016-07-05 12:13 | US ---
HISTORY: History of Liver Cirrhosis/Ascites Relevant interventional procedure(s): July 04, 2016. Ultrasound-directed paracentesis with recovery of 5 L of straw-colored fluid. COMPARISON: 05/09/2016 abdominal ultrasound. TECHNIQUE: Sonographic evaluation of the abdomen. FINDINGS: LIVER: Measures 18.6 cm. Heterogeneous echo characteristics, irregular contour to the liver. Hepato pedal portal venous blood flow. . No mass. No intrahepatic bile duct dilatation. GALLBLADDER: Collapsed gallbladder with multiple gallstones. Gallbladder wall thickening likely related to collapse state. Negative sonographic Aden's sign. COMMON BILE DUCT: Measures 4.5 mm. No stones. No dilatation. PANCREAS: Unremarkable as visualized. No mass. No ductal dilatation. RIGHT KIDNEY: Measures 5 x 10.7cm. Normal echogenicity. No calculus, mass, or hydronephrosis. LEFT KIDNEY: Measures 5.6 x 9.4cm. Normal echogenicity. No calculus, mass, or hydronephrosis. SPLEEN: Normal in size and contour. No mass. AORTA: No aneurysmal dilatation. IVC: Unremarkable. OTHER FINDINGS: Residual ascites following paracentesis. IMPRESSION: Cholelithiasis. No sonographic evidence of acute cholecystitis. Stable cirrhotic appearing liver without focal abnormality.
--- NOTE | 2016-07-05 12:32 | CP.PCM.DIS ---
Provider - Provider Date of Admission: 07/04/16 10:56 Attending physician: Giancarlo Murry MD Consults: Dr James Time Spent in preparation of Discharge (in minutes): 30 Diagnosis - Discharge Diagnosis (1) Renal failure Status: Acute Comment: patient will follow up with Dr James as outpatient for management of his kidney failure probably secondary to hypovolemia. hold Lasix (2) Liver cirrhosis Status: Chronic Priority: High Comment: continue Nadolol, Lactulose, Rifaxmin. temporary held Lasix (3) Thrombocytopenia Status: Chronic Priority: High Comment: secondary to cirrhosis Hospital Course - Lab Results Lab Results: Micro Results 07/04/16 11:58 Body Fluid - Abdominal Gram Stain - Final 07/04/16 11:58 Body Fluid - Abdominal Body Fluid Culture - Preliminary NO GROWTH AFTER 24 HOURS Most Recent Lab Values WBC 6.5 K/uL (4.8-10.8) 07/05/16 05:40 RBC 2.93 Mil/uL (4.40-5.90) L 07/05/16 05:40 Hgb 9.2 g/dL (12.0-18.0) L D 07/05/16 05:40 Hct 28.5 % (35.0-51.0) L 07/05/16 05:40 MCV 97.3 fl (80.0-94.0) H 07/05/16 05:40 MCH 31.6 pg (27.0-31.0) H 07/05/16 05:40 MCHC 32.5 g/dL (33.0-37.0) L 07/05/16 05:40 RDW 21.2 % (11.5-14.5) H 07/05/16 05:40 Plt Count 105 K/uL (130-400) L D 07/05/16 05:40 MPV 8.7 fl (7.2-11.7) 07/05/16 05:40 Neut % (Auto) 74.1 % (50.0-75.0) 07/05/16 05:40 Lymph % (Auto) 12.7 % (20.0-40.0) L 07/05/16 05:40 [place] % (Auto) 11.6 % (0.0-10.0) H 07/05/16 05:40 Eos % (Auto) 1.0 % (0.0-4.0) 07/05/16 05:40 Baso % (Auto) 0.6 % (0.0-2.0) 07/05/16 05:40 Neut # 4.8 K/uL (1.8-7.0) 07/05/16 05:40 Lymph # 0.8 K/uL (1.0-4.3) L 07/05/16 05:40 [place] # 0.8 K/uL (0.0-0.8) 07/05/16 05:40 Eos # 0.1 K/uL (0.0-0.7) 07/05/16 05:40 Baso # 0.0 K/uL (0.0-0.2) 07/05/16 05:40 PT 12.9 SECONDS (9.6-11.2) H 07/04/16 09:50 INR 1.24 (0.92-1.08) H 07/04/16 09:50 APTT 29.4 SECONDS (23.3-32.5) 07/04/16 09:50 Sodium 138 mmol/l (132-148) 07/05/16 05:40 Potassium 3.7 MMOL/L (3.6-5.0) 07/05/16 05:40 Chloride 106 mmol/L (98-107) 07/05/16 05:40 Carbon Dioxide 24 mmol/L (22-30) 07/05/16 05:40 Anion Gap 11 (10-20) 07/05/16 05:40 BUN 36 mg/dl (9-20) H 07/05/16 05:40 Creatinine 2.4 mg/dL (0.8-1.5) H 07/05/16 05:40 Est GFR ( Amer) 34 07/05/16 05:40 Est GFR (Non-Af Amer) 28 07/05/16 05:40 Random Glucose 78 mg/dL (75-110) 07/05/16 05:40 Calcium 8.0 mg/dL (8.4-10.2) L 07/05/16 05:40 Phosphorus 4.3 mg/dl (2.5-4.5) 07/04/16 09:50 Magnesium 2.2 MG/DL (1.6-2.3) 07/04/16 09:50 Total Bilirubin 1.3 mg/dl (0.2-1.3) 07/04/16 09:50 AST 97 U/L (17-59) H 07/04/16 09:50 ALT 58 U/L (21-72) 07/04/16 09:50 Alkaline Phosphatase 134 U/L (38-126) H 07/04/16 09:50 Total Protein 8.0 G/DL (6.3-8.2) 07/04/16 09:50 Albumin 3.1 g/dL (3.5-5.0) L 07/04/16 09:50 Globulin 4.9 gm/dL (2.2-3.9) H 07/04/16 09:50 Albumin/Globulin Ratio 0.6 (1.0-2.1) L 07/04/16 09:50 Lipase 274 U/L (23-300) 07/04/16 09:50 Urine Color Yellow (YELLOW) 07/04/16 05:14 Urine Clarity Clear (Clear) 07/04/16 05:14 Urine pH 5.0 (5.0-8.0) 07/04/16 05:14 Ur Specific [place] 1.023 (1.003-1.030) 07/04/16 05:14 Urine Protein Negative mg/dL (NEGATIVE) 07/04/16 05:14 Urine Glucose (UA) Neg mg/dL (Normal) 07/04/16 05:14 Urine Ketones Negative mg/dL (NEGATIVE) 07/04/16 05:14 Urine Blood Negative (NEGATIVE) 07/04/16 05:14 Urine Nitrate Negative (NEGATIVE) 07/04/16 05:14 Urine Bilirubin Negative (NEGATIVE) 07/04/16 05:14 Urine Urobilinogen 0.2-1.0 mg/dL (0.2-1.0) 07/04/16 05:14 Ur Leukocyte Esterase Neg [place]/uL (Negative) 07/04/16 05:14 Urine RBC (Auto) 1 /hpf (0-3) 07/04/16 05:14 Urine Microscopic WBC 3 /hpf (0-5) 07/04/16 05:14 Ur Squamous Epith Cells < 1 /hpf (0-5) 07/04/16 05:14 Hyaline Casts 0-2 /hpf (0-2) 07/04/16 05:14 Ur Random Creatinine 242.4 mg/dL 07/04/16 05:14 Ur Random Sodium 9 mmol/L 07/04/16 05:14 Fluid Source Peritoneal/ascites 07/04/16 11:58 Fluid Appearance Clear (CLEAR) 07/04/16 11:58 Fluid WBC 56.0 /mm3 (0.0-300.0) 07/04/16 11:58 Fluid RBC 142.0 /mm3 (0.0-0.0) H 07/04/16 11:58 Fluid Tot Cell Count 100 (0-0) H 07/04/16 11:58 Fluid Neutrophils 8.0 % (0-0) H 07/04/16 11:58 Fluid Lymphocytes 50.0 % (0-0) H 07/04/16 11:58 Fld Monocyte/Macrophag 42 % (0-0) H 07/04/16 11:58 Fluid Glucose 103 mg/dL (NONE ESTABLISHED) 07/04/16 11:58 Fluid Total Protein < 2.0 g/dL (NONE ESTABLISHED) 07/04/16 11:58 Fluid LDH 276 IU (NONE ESTABLISHED) 07/04/16 11:58 Fluid Comment Light yellow 07/04/16 11:58 - Hospital Course Hospital Course: 60 yo male with history of liver cirrhosis secondary to Hepatitis C with Esophageal Varices and Chronic ascites brought in because of abdominal pain with abdominal distention. Patient had IR paracentesis draining 5 liters of straw colored fluid. His condition improved however renal function deteriorated because of the volume loss augmenting those from the diuretics. Renal consult was called and was advised to temporary hold the Lasix. 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 . Discharge Exam - Head Exam Head Exam: ATRAUMATIC, NORMAL INSPECTION, NORMOCEPHALIC - Eye Exam Eye Exam: Normal appearance - ENT Exam ENT Exam: Mucous Membranes Moist - Respiratory Exam Respiratory Exam: NORMAL BREATHING PATTERN. absent: Wheezes, Respiratory Distress - Cardiovascular Exam Cardiovascular Exam: REGULAR RHYTHM, +S1, +S2 - GI/Abdominal Exam GI & Abdominal Exam: Distended. absent: Tenderness - Rectal Exam Rectal Exam: Deferred - Neurological Exam Neurological exam: Alert, Oriented x3 - Psychiatric Exam Psychiatric exam: Normal Affect - Skin Skin Exam: Dry, Intact Discharge Plan - Follow Up Plan Condition: FAIR Disposition: HOME/ ROUTINE Instructions: Thoracentesis (DC), Cirrhosis (DC) Additional Instructions: F/U with private MD
--- NOTE | 2016-07-05 13:17 | CP.PCM.PN ---
Subjective - Date & Time of Evaluation Date of Evaluation: 07/05/16 Time of Evaluation: 13:17 - Subjective Subjective: renal follow up note Objective - Vital Signs/Intake and Output Vital Signs (last 24 hours): Temp Pulse Resp BP Pulse Ox 98.7 F 72 18 97/62 L 100 07/05/16 08:42 07/05/16 08:42 07/05/16 08:42 07/05/16 08:42 07/05/16 08:42 - Medications Medications: Current Medications Acetaminophen (Tylenol 325mg Tab) 650 mg PO Q6 PRN PRN Reason: Pain, Mild (1-3) Last Admin: 07/04/16 13:25 Dose: 650 mg Home Med (Ropinirole Hcl [Requip]) 1 mg PO HS [facility] Nadolol (Corgard) 20 mg PO DAILY [facility] Last Admin: 07/04/16 14:47 Dose: Not Given Pantoprazole Sodium (Protonix Ec Tab) 40 mg PO DAILY [facility] Last Admin: 07/05/16 10:02 Dose: 40 mg Rifaximin (Xifaxan) 550 mg PO Q12 [facility] Last Admin: 07/05/16 10:02 Dose: 550 mg - Labs Labs: 07/05/16 05:40 07/05/16 05:40 PT 12.9 SECONDS (9.6-11.2) H 07/04/16 09:50 INR 1.24 (0.92-1.08) H 07/04/16 09:50 APTT 29.4 SECONDS (23.3-32.5) 07/04/16 09:50
--- NOTE | 2016-07-05 13:17 | CP.PCM.CON ---
History of Present Illness - History of Present Illness History of Present Illness: no genny Past Patient History - Infectious Disease Hx of Infectious Diseases: None - Tetanus Immunizations Tetanus Immunization: Unknown - Past Medical History & Family History Past Medical History?: Yes - Past Social History Smoking Status: Light Smoker < 10 Cigarettes Daily - CARDIAC Hx Hypertension: Yes Hx Peripheral Edema: Yes - PULMONARY Hx Respiratory Disorders: No - NEUROLOGICAL Hx Neurological Disorder: Yes (Vertigo) Hx Dizziness: Yes - HEENT Hx HEENT Problems: No - RENAL Hx Chronic Kidney Disease: No - ENDOCRINE/METABOLIC Hx Endocrine Disorders: Yes (Hep C, cirrhosis) - HEMATOLOGICAL/ONCOLOGICAL Hx Human Immunodeficiency Virus (HIV): No - INTEGUMENTARY Hx Dermatological Problems: Yes 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 - MUSCULOSKELETAL/RHEUMATOLOGICAL Hx Arthritis: Yes - GASTROINTESTINAL Hx Pancreatitis: Yes - GENITOURINARY/GYNECOLOGICAL Hx Genitourinary Disorders: No - PSYCHIATRIC Hx Psychophysiologic Disorder: Yes Hx Emotional Abuse: No Hx Physical Abuse: No Hx Substance Use: Yes (quit 14 yrs ago, [facility]) - SURGICAL HISTORY Hx Surgeries: Yes Other/Comment: for deviated septum - ANESTHESIA Hx Anesthesia: Yes Hx Anesthesia Reactions: No Hx Malignant Hyperthermia: No Meds Allergies/Adverse Reactions: Allergies Allergy/AdvReac Type Severity Reaction Status Date / Time No Known Allergies Allergy Verified 07/04/16 08:49 - Medications Medications: Current Medications Acetaminophen (Tylenol 325mg Tab) 650 mg PO Q6 PRN PRN Reason: Pain, Mild (1-3) Last Admin: 07/04/16 13:25 Dose: 650 mg Home Med (Ropinirole Hcl [Requip]) 1 mg PO HS [facility] Nadolol (Corgard) 20 mg PO DAILY [facility] Last Admin: 07/04/16 14:47 Dose: Not Given Pantoprazole Sodium (Protonix Ec Tab) 40 mg PO DAILY [facility] Last Admin: 07/05/16 10:02 Dose: 40 mg Rifaximin (Xifaxan) 550 mg PO Q12 [facility] Last Admin: 07/05/16 10:02 Dose: 550 mg Results - Vital Signs Recent Vital Signs: Last Vital Signs Temp 98.7 F 07/05/16 08:42 Pulse 72 07/05/16 08:42 Resp 18 07/05/16 08:42 BP 97/62 L 07/05/16 08:42 Pulse Ox 100 07/05/16 08:42 - Labs Result Diagrams: 07/05/16 05:40 07/05/16 05:40 Labs: Laboratory Results - last 24 hr 07/04/16 07/04/16 07/05/16 11:58 18:15 05:40 WBC RBC Hgb Hct MCV MCH MCHC RDW Plt Count MPV Neut % (Auto) Lymph % (Auto) [place] % (Auto) Eos % (Auto) Baso % (Auto) Neut # Lymph # [place] # Eos # Baso # Sodium 139 138 Potassium 4.0 3.7 Chloride 105 106 Carbon Dioxide 28 24 Anion Gap 11 11 BUN 31 H 36 H Creatinine 2.5 H 2.4 H Est GFR ( Amer) 32 34 Est GFR (Non-Af Amer) 27 28 Random Glucose 97 78 Calcium 8.5 8.0 L Fluid Appearance Clear Fluid WBC 56.0 Fluid RBC 142.0 H Fluid Tot Cell Count 100 H Fluid Neutrophils 8.0 H Fluid Lymphocytes 50.0 H Fld Monocyte/Macrophag 42 H Fluid Comment Light yellow 07/05/16 05:40 WBC 6.5 RBC 2.93 L Hgb 9.2 L D Hct 28.5 L MCV 97.3 H MCH 31.6 H MCHC 32.5 L RDW 21.2 H Plt Count 105 L D MPV 8.7 Neut % (Auto) 74.1 Lymph % (Auto) 12.7 L [place] % (Auto) 11.6 H Eos % (Auto) 1.0 Baso % (Auto) 0.6 Neut # 4.8 Lymph # 0.8 L [place] # 0.8 Eos # 0.1 Baso # 0.0 Sodium Potassium Chloride Carbon Dioxide Anion Gap BUN Creatinine Est GFR ( Amer) Est GFR (Non-Af Amer) Random Glucose Calcium Fluid Appearance Fluid WBC Fluid RBC Fluid Tot Cell Count Fluid Neutrophils Fluid Lymphocytes Fld Monocyte/Macrophag Fluid Comment
[2016-07-05 13:29] VITALS: BP 95/50
[2016-07-05 16:22] VITALS: RESP 20
== END 2016-07-05 14:21 | disposition home or self-care (01) ==
LOC: H.ER 08:30 → H.ERHOLD 10:56 → H.MEDSURG1 16:00
PROVIDERS: ADMIT Family Medicine; ATTEND Family Medicine
DX: N17.9 Acute kidney failure, unspecified (principal); R18.8 Other ascites; K74.60 Unspecified cirrhosis of liver; B18.2 Chronic viral hepatitis C; D69.59 Other secondary thrombocytopenia; I10 Essential (primary) hypertension; K76.6 Portal hypertension; D64.9 Anemia, unspecified; G25.81 Restless legs syndrome; F17.210 Nicotine dependence, cigarettes, uncomplicated

== ENCOUNTER 2016-07-15 08:59 | Day surgery (SDC) | payer OTHER ==
[2016-07-15 09:46] VITALS: BMI 24.3
[2016-07-15] MEDS ORDERED: Lidocaine 1% Inj (20ml) ONE (11:30)
[2016-07-15 11:47] VITALS: RESP 18
--- NOTE | 2016-07-15 11:47 | CP.SDSHP ---
Same Day Surgery H & P - History Proposed Procedure: US guided paracentesis Pre-Op Diagnosis: Ascites, abdominal pain - Allergies Allergies: Allergies No Known Allergies Allergy (Verified 07/04/16 08:49) - Physical Exam Vital Signs: Vital Signs 07/15/16 07/15/16 09:29 09:30 Temperature 97.9 F Pulse Rate 63 63 Respiratory 20 Rate Blood Pressure 113/72 O2 Sat by Pulse 100 Oximetry Mental Status: Alert & Oriented x3 - {Optional Preform as Required} Abdomen: Other (distended, non-tender) - Impression Impression: Pt with cirrhosis and refractory ascites. Plan US guided paracentesis. Pt. Evaluated Today:Candidate for Anesthesia & Procedure: No - Date & Time Date: 07/15/16 Time: 11:35 Short Stay Discharge - Short Stay Discharge Admitting Diagnosis/Reason for Visit: CIRRHOSIS OF THE LIVER Progress Note/Discharge Note with Instructions: S/P Paracentesis.
--- NOTE | 2016-07-15 11:48 | PCM.SURG1 ---
Surgeon's Initial Post Op Note - Surgeon's Notes Surgeon: Yadiel Howe MD Projector Booth Operator: NONE Type of Anesthesia: Local Pre-Operative Diagnosis: Ascites Operative Findings: US showed a moderate amount of ascites Post-Operative Diagnosis: Ascites Operation Performed: US guided paracentesis Specimen/Specimens Removed: 6.6 liters of clear fluid Estimated Blood Loss: EBL {In ML}: 0 Blood Products Given: N/A Drains Used: No Drains Post-Op Condition: Good Date of Surgery/Procedure: 07/15/16 Time of Surgery/Procedure: 12:20
[2016-07-15 13:18] VITALS: BP 94/58; PULSE 58; TEMP 97.8; O2SAT 98
--- NOTE | 2016-07-19 14:12 | US ---
Date of Procedure: 07/15/2016 PROCEDURE: Ultrasound-guided paracentesis, CPT 58466 Medications: 8cc 1% Lidocaine HISTORY: Ascites, abdominal pain, cirrhosis TECHNIQUE: Following informed consent , the patient was placed supine on the stretcher and the site was marked. A limited abdominal ultrasound was performed that showed a large amount of intra-abdominal fluid. Procedural time out was called and the Pt's abdomen was marked and prepped and draped in the usual sterile fashion. Ultrasound-guided large volume paracentesis performed. A total of 6.6 liters of straw colored fluid was removed without complication. IMPRESSION: Ultrasound-guided large volume paracentesis.
== END 2016-07-15 13:15 | disposition home or self-care (01) ==
LOC: H.OPSURG 08:59
PROVIDERS: ATTEND Family Medicine
DX: K74.60 Unspecified cirrhosis of liver (principal); R18.8 Other ascites

== ENCOUNTER 2016-08-02 10:59 | Day surgery (SDC) | payer OTHER ==
[2016-08-02 11:29] VITALS: O2SAT 98
[2016-08-02 11:41] VITALS: BMI 26.6
[2016-08-02] MEDS ORDERED: Lidocaine 1% Inj (20ml) ONE (13:22)
[2016-08-02 13:43] VITALS: RESP 18; TEMP 97.2
--- NOTE | 2016-08-02 13:47 | CP.SDSHP ---
Same Day Surgery H & P - History Proposed Procedure: Yadiel Howe MD Pre-Op Diagnosis: Ascites, cirrhosis - Allergies Allergies: Allergies No Known Allergies Allergy (Verified 07/04/16 08:49) - Physical Exam Vital Signs: Vital Signs 08/02/16 08/02/16 11:29 13:38 Temperature 98.5 F 97.2 F L Pulse Rate 64 64 Respiratory 20 18 Rate Blood Pressure 100/59 L 122/62 O2 Sat by Pulse 98 Oximetry Mental Status: Alert & Oriented x3 Neuro: WNL Heart: WNL Lungs: WNL - {Optional Preform as Required} Abdomen: Other (Distended) - Impression Impression: Pt with refractory ascites. Plan US guided paracentesis. Pt. Evaluated Today:Candidate for Anesthesia & Procedure: No - Date & Time Date: 08/02/16 Time: 13:45 Short Stay Discharge - Short Stay Discharge Admitting Diagnosis/Reason for Visit: CIRRHOSIS OF THE LIVER Referrals: Juice Ponce MD [Primary Care Provider] - Progress Note/Discharge Note with Instructions: US guided paracentesis.
--- NOTE | 2016-08-02 14:04 | PCM.SURG1 ---
Surgeon's Initial Post Op Note - Surgeon's Notes Surgeon: Yadiel Howe MD Substitute Teacher: NONE Type of Anesthesia: Local Pre-Operative Diagnosis: Ascites, cirrhosis Operative Findings: US showed a large amount of ascites Post-Operative Diagnosis: Ascites, cirrhosis Operation Performed: US guided paracentesis. Specimen/Specimens Removed: 4.5 liters of straw colored fluid Estimated Blood Loss: EBL {In ML}: 0 Blood Products Given: N/A Drains Used: No Drains Post-Op Condition: Good Date of Surgery/Procedure: 08/02/16 Time of Surgery/Procedure: 14:15
[2016-08-02 14:43] VITALS: BP 109/63; PULSE 57
--- NOTE | 2016-08-03 14:19 | US ---
Date of Procedure: 08/02/2016 PROCEDURE: Ultrasound-guided paracentesis, CPT 35328 Medications: 8cc 1% Lidocaine HISTORY: Ascites, abdominal pain, cirrhosis TECHNIQUE: Following informed consent , the patient was placed supine on the stretcher and the site was marked. A limited abdominal ultrasound was performed that showed a large amount of intra-abdominal fluid. Procedural time out was called and the Pt's abdomen was marked and prepped and draped in the usual sterile fashion. Ultrasound-guided large volume paracentesis performed. A total of 4.5 liters of straw colored fluid was removed without complication. IMPRESSION: Ultrasound-guided large volume paracentesis.
== END 2016-08-02 15:10 | disposition home or self-care (01) ==
LOC: H.OPSURG 10:59
PROVIDERS: ATTEND Family Medicine
DX: K74.60 Unspecified cirrhosis of liver (principal); R18.8 Other ascites

== ENCOUNTER 2016-08-30 10:56 | Day surgery (SDC) | payer OTHER ==
[2016-08-30 11:48] VITALS: BMI 23.5
[2016-08-30] MEDS ORDERED: Lidocaine 1% Inj (20ml) ONE (13:58)
[2016-08-30 14:13] VITALS: RESP 18
--- NOTE | 2016-08-30 14:16 | CP.SDSHP ---
Same Day Surgery H & P - History Proposed Procedure: US guided paracentesis Pre-Op Diagnosis: Ascites - Allergies Allergies: Allergies No Known Allergies Allergy (Verified 07/04/16 08:49) - Physical Exam Vital Signs: Vital Signs 08/30/16 08/30/16 11:53 14:09 Temperature 98.2 F 97.6 F Pulse Rate 69 57 L Respiratory 20 18 Rate Blood Pressure 102/70 152/87 H O2 Sat by Pulse 100 99 Oximetry - Impression Impression: Pt with refractory ascites referred for paracentesis. Pt. Evaluated Today:Candidate for Anesthesia & Procedure: No - Date & Time Date: 08/30/16 Time: 14:05 Short Stay Discharge - Short Stay Discharge Admitting Diagnosis/Reason for Visit: CIRRHOSIS OF THE LIVER Referrals: Juice Ponce MD [Primary Care Provider] - Progress Note/Discharge Note with Instructions: S/P PARACENTESIS.
--- NOTE | 2016-08-30 14:20 | PCM.SURG1 ---
Surgeon's Initial Post Op Note - Surgeon's Notes Surgeon: Yadiel Howe MD Early Childhood Associate: None Type of Anesthesia: Local Pre-Operative Diagnosis: Ascites Operative Findings: US showed moderate amount of ascites Post-Operative Diagnosis: Ascites Operation Performed: US guided paracentesis. Specimen/Specimens Removed: 2.8 liters of straw colored fluid Estimated Blood Loss: EBL {In ML}: 1 Blood Products Given: N/A Drains Used: No Drains Post-Op Condition: Fair Date of Surgery/Procedure: 08/30/16 Time of Surgery/Procedure: 14:40
[2016-08-30 15:25] VITALS: BP 139/55; PULSE 55; TEMP 98.2; O2SAT 97
--- NOTE | 2016-09-05 11:16 | US ---
Date of Procedure: 08/30/2016 PROCEDURE: Ultrasound-guided paracentesis, CPT 98263 Medications: 7 cc 1% Lidocaine HISTORY: Ascites, abdominal pain, cirrhosis TECHNIQUE: Following informed consent , the patient was placed supine on the stretcher and the site was marked. A limited abdominal ultrasound was performed that showed a large amount of intra-abdominal fluid. Procedural time out was called and the Pt's abdomen was marked and prepped and draped in the usual sterile fashion. Ultrasound-guided large volume paracentesis performed. A total of 2.8 liters of straw colored fluid was removed without complication. IMPRESSION: Ultrasound-guided large volume paracentesis.
== END 2016-08-30 15:30 | disposition home or self-care (01) ==
LOC: H.OPSURG 10:56
PROVIDERS: ATTEND Family Medicine
DX: K74.60 Unspecified cirrhosis of liver (principal); R18.8 Other ascites

== ENCOUNTER 2016-09-22 09:35 | Observation (INO) | payer OTHER ==
[2016-09-22 09:42] VITALS: BMI 23.0
--- NOTE | 2016-09-22 10:00 | ED PDOC ---
HPI: Abdomen Time Seen by Provider: 09/22/16 09:44 Chief Complaint (Nursing): Abdominal Pain Chief Complaint (Provider): abdominal pain History Per: Patient History/Exam Limitations: no limitations Onset/Duration Of Symptoms: Days (x 3) Additional Complaint(s): Dyllan Scott is a 60 year old male, with a previous medical history of cirrhosis and ascities, who presents to the ED with complaints of abdominal swelling associated with epigastric pain and diarrhea ongoing for 3 days. Patient denies any nausea, vomiting or fever. Last paracentesis dont on July 24, 2016. PMD: Juice Capellan MD Past Medical History Vital Signs: Last Vital Signs Temp 96.5 F L 09/22/16 14:16 Pulse 58 L 09/22/16 15:01 Resp 18 09/22/16 15:01 BP 148/85 09/22/16 15:01 Pulse Ox 98 09/22/16 15:01 - Medical History PMH: Arthritis, Hepatitis (C), HTN, Pancreatitis, Peripheral Edema Denies: HIV, Chronic Kidney Disease - Family History Family History: States: Unknown Family Hx - Immunization History Hx Tetanus Toxoid Vaccination: No Hx Influenza Vaccination: No Hx Pneumococcal Vaccination: No - Home Medications Home Medications: Ambulatory Orders Medication Instructions Recorded rifAXIMin [Xifaxan] 550 mg PO Q12 04/10/16 Eplerenone [Inspra] 50 mg PO DAILY 05/09/16 Lactulose [Generlac] 30 ml PO DAILY 05/09/16 Nadolol [Corgard] 20 mg PO DAILY 05/09/16 Ropinirole HCl [Requip] 1 mg PO HS 06/13/16 Cyanocobalamin [Vitamin B12 1000 1 tab PO DAILY 07/04/16 mcg Tab] Ergocalciferol (Vitamin D2) 50,000 unit PO QWK 07/04/16 [Vitamin D2] Multivitamin [Multi-Vitamin Daily] 1 tab PO DAILY 07/04/16 Elberon-3 Fatty Acids [Elberon-3] 1 cap PO DAILY 07/04/16 Pantoprazole Sodium [Protonix] 40 mg PO DAILY 07/04/16 Furosemide [Lasix] 50 mg PO DAILY 07/15/16 Famciclovir 500 mg PO DAILY 08/02/16 Lamivudine [Epivir] 150 mg PO DAILY 08/02/16 Levofloxacin [Levaquin] 500 mg PO ASDIR 08/30/16 - Allergies Allergies/Adverse Reactions: Allergies Allergy/AdvReac Type Severity Reaction Status Date / Time No Known Allergies Allergy Verified 07/04/16 08:49 Review of Systems ROS Statement: Except As Marked, All Systems Reviewed And Found Negative Constitutional: Negative for: Fever, Chills Gastrointestinal: Positive for: Abdominal Pain, Diarrhea. Negative for: Nausea , Vomiting Physical Exam - Reviewed Nursing Documentation Reviewed: Yes Vital Signs Reviewed: Yes - Physical Exam Appears: Positive for: Well, Non-toxic, No Acute Distress Head Exam: Positive for: ATRAUMATIC, NORMAL INSPECTION, NORMOCEPHALIC Skin: Positive for: Normal Color, Warm, DRY Eye Exam: Positive for: EOMI, Normal appearance, PERRL ENT: Positive for: Normal ENT Inspection Neck: Positive for: Normal, Painless ROM Cardiovascular/Chest: Positive for: Regular Rate, Rhythm Respiratory: Positive for: CNT, Normal Breath Sounds Gastrointestinal/Abdominal: Positive for: Bowel Sounds, Tenderness (epigastric) , Distended (ascites with fluid wave) Back: Positive for: Normal Inspection Extremity: Positive for: Normal ROM Neurologic/Psych: Positive for: Alert, Oriented - Laboratory Results Result Diagrams: 09/22/16 10:35 09/22/16 10:35 - ECG O2 Sat by Pulse Oximetry: 100 (RA) Pulse Ox Interpretation: Normal Medical Decision Making Medical Decision Making: Initial Plan: * labs * lipase * pepcid 20 mg IV * ED Obs * paracentesis * reevaluation Scribe Attestation: Documented by Edith Roberts, acting as a scribe for Andrea Neves MD. Provider Scribe Attestation: All medical record entries made by the Scribe were at my direction and personally dictated by me. I have reviewed the chart and agree that the record accurately reflects my personal performance of the history, physical exam, medical decision making, and the department course for this patient. I have also personally directed, reviewed, and agree with the discharge instructions and disposition. ED OBSERVATION Date of observation admission: 09/22/16 Time of observation admission: 09:53 - Observation admission statement Patient is being placed in observation because:: ascites, abdominal pain and ED treatment - Goals of Observation Goals of observation are:: symptoms alleviation and paracentesis Disposition - Clinical Impression Clinical Impression: Ascites, Liver cirrhosis, Gastritis - Patient ED Disposition Is Patient to be Admitted: No Counseled Patient/Family Regarding: Studies Performed, Diagnosis, Need For Followup, Rx Given - Disposition Disposition: Routine/Home Disposition Time: 15:05 Condition: FAIR
[2016-09-22 10:52] LABS: BASO % 0.5 % (0.0-2.0); EOS # 0.1 K/uL (0.0-0.7); EOS % 1.3 % (0.0-4.0); HEMOGLOBIN 13.2 g/dL (12.0-18.0); LYMPH # 0.8 K/uL (1.0-4.3); LYMPH % 15.1 % (20.0-40.0); MEAN CELL VOLUME 99.8 fl (80.0-94.0); MEAN CORPUSCULAR HEMOGLOBIN 33.5 pg (27.0-31.0); MEAN CORPUSCULAR HGB CONC 33.6 g/dL (33.0-37.0); MEAN PLATELET VOLUME 8.5 fl (7.2-11.7); MONO # 0.4 K/uL (0.0-0.8); MONO % 7.6 % (0.0-10.0); NEUT # 3.9 K/uL (1.8-7.0); NEUT % 75.5 % (50.0-75.0); NRBC % 0.2 % (0.0-0.0); RBC 3.95 Mil/uL (4.40-5.90); RED CELL DISTRIBUTION WIDTH 16.6 % (11.5-14.5); WHITE BLOOD COUNT 5.2 K/uL (4.8-10.8)
[2016-09-22 11:11] LABS: ALB/GLOB RATIO 0.7 (1.0-2.1); ALBUMIN 3.4 g/dL (3.5-5.0); ALT/SGPT 45 U/L (21-72); AST/SGOT 73 U/L (17-59); BLOOD UREA NITROGEN 29 mg/dl (9-20); CALCIUM 8.9 mg/dL (8.4-10.2); GFR AFRICAN-AMERICAN > 60; GFR NON-AFRICAN AMERICAN 57; LIPASE 169 U/L (23-300)
[2016-09-22 11:18] LABS: INR 1.3 (0.9-1.2); PROTHROMBIN TIME 12.9 Seconds (9.8-13.1)
[2016-09-22] MEDS ORDERED: Lidocaine 1% Inj (20ml) ONE (14:09)
[2016-09-22 14:18] VITALS: RESP 18; TEMP 96.5
--- NOTE | 2016-09-22 14:30 | PCM.SURG1 ---
Surgeon's Initial Post Op Note - Surgeon's Notes Surgeon: Karely Bilingual Loan Processor: None Type of Anesthesia: Local Pre-Operative Diagnosis: Ascites. Operative Findings: Ascites. Post-Operative Diagnosis: Ascites. Operation Performed: Paracentesis Specimen/Specimens Removed: 1.4 cc of pale yellow fluid aspirated. Estimated Blood Loss: EBL {In ML}: 2 Date of Surgery/Procedure: 09/22/16 Time of Surgery/Procedure: 14:20
[2016-09-22 15:01] VITALS: BP 148/85; PULSE 58
[2016-09-22 15:06] VITALS: O2SAT 100
--- NOTE | 2016-09-23 11:22 | US ---
Ultrasound guided paracentesis. Clinical History: Ascites with abdominal pain and distension. Technique: The relative risks and indications for the procedure were explained to the patient and informed written consent obtained. Sonography of the abdomen was performed in a supine position. This revealed a small amount of non-loculated ascites, greatest in the left lower quadrant. A puncture site was selected and the area was prepped and draped in the usual sterile fashion. 1% lidocaine was used to anesthetize the skin and soft tissues. A 5 Maldivian paracentesis catheter was trocared into the right lower quadrant under real time ultrasound guidance. A permanent image was stored. Approximately 1400 cc of sahista fluid aspirated. Impression: Ultrasound-guided paracentesis in the right lower quadrant. Approximately 1400 cc of shaista colored fluid was aspirated.
== END 2016-09-22 15:50 | disposition home or self-care (01) ==
LOC: H.ER 09:35 → H.EROBSV 09:53 → UNDOADMOB 09:53
PROVIDERS: ADMIT Emergency Medicine; ATTEND Emergency Medicine
DX: R18.8 Other ascites (principal); K74.60 Unspecified cirrhosis of liver; B19.20 Unspecified viral hepatitis C without hepatic coma; I10 Essential (primary) hypertension; K29.70 Gastritis, unspecified, without bleeding; R19.7 Diarrhea, unspecified

== ENCOUNTER 2016-10-13 08:55 | Day surgery (SDC) | payer OTHER ==
[2016-10-13 09:46] VITALS: O2SAT 100
[2016-10-13] MEDS ORDERED: Lidocaine 1% Inj (20ml) ONE (12:05)
--- NOTE | 2016-10-13 12:16 | CP.SDSHP ---
Same Day Surgery H & P - History Proposed Procedure: Paracentesis. Pre-Op Diagnosis: Ascites. - Allergies Allergies: Allergies No Known Allergies Allergy (Verified 10/13/16 09:14) - Physical Exam Vital Signs: Vital Signs 10/13/16 10/13/16 09:45 12:07 Temperature 97 F L 96.3 F L Pulse Rate 51 L 60 Respiratory 18 18 Rate Blood Pressure 133/70 139/83 O2 Sat by Pulse 100 Oximetry Mental Status: Alert & Oriented x3 Neuro: WNL Heart: WNL Lungs: WNL GI: Other - Impression Pt. Evaluated Today:Candidate for Anesthesia & Procedure: Yes Short Stay Discharge - Short Stay Discharge Admitting Diagnosis/Reason for Visit: ASCITES Disposition: HOME/ ROUTINE
--- NOTE | 2016-10-13 12:32 | PCM.SURG1 ---
Surgeon's Initial Post Op Note - Surgeon's Notes Surgeon: Karely Enrollment Counselor: None Type of Anesthesia: Local Pre-Operative Diagnosis: Ascites. Operative Findings: Ascites. Post-Operative Diagnosis: Ascites. Operation Performed: Paracentesis. Specimen/Specimens Removed: Approx 1100cc of tea colored fluid aspirated. Estimated Blood Loss: EBL {In ML}: 1 Date of Surgery/Procedure: 10/13/16 Time of Surgery/Procedure: 12:15
[2016-10-13 13:46] VITALS: PULSE 49
--- NOTE | 2016-10-13 14:29 | US ---
Ultrasound guided paracentesis. Clinical History: Ascites with abdominal pain and distension. Technique: The relative risks and indications for the procedure were explained to the patient and informed written consent obtained. Sonography of the abdomen was performed in a supine position. This revealed a small amount of non-loculated ascites, greatest in the right lower quadrant. A puncture site was selected and the area was prepped and draped in the usual sterile fashion. 1% lidocaine was used to anesthetize the skin and soft tissues. A 5 Arabic paracentesis catheter was trocared into the right lower quadrant under real time ultrasound guidance. A permanent image was stored. Approximately 1100 cc of tea colored fluid aspirated. Impression: Ultrasound-guided paracentesis in the right lower quadrant. Approximately 1100 cc of tea colored fluid was aspirated.
[2016-10-13 14:33] VITALS: BP 147/75; RESP 19; TEMP 97.5
== END 2016-10-13 15:10 | disposition home or self-care (01) ==
LOC: H.OPSURG 08:55
PROVIDERS: ATTEND Family Medicine
DX: R18.8 Other ascites (principal)
CPT/HCPCS: 49083; C1729

== ENCOUNTER 2016-12-19 08:52 | Inpatient (IN) | payer OTHER ==
[2016-12-19 08:57] VITALS: BMI 21.6
[2016-12-19 10:42] LABS: BASO # 0.1 K/uL (0.0-0.2); BASO % 0.5 % (0.0-2.0); HEMATOCRIT 28.9 % (35.0-51.0); LYMPH # 1.5 K/uL (1.0-4.3); LYMPH % 14.2 % (20.0-40.0); MEAN CELL VOLUME 103.2 fl (80.0-94.0); MEAN CORPUSCULAR HEMOGLOBIN 35.9 pg (27.0-31.0); MEAN CORPUSCULAR HGB CONC 34.8 g/dL (33.0-37.0); MONO # 0.6 K/uL (0.0-0.8); MONO % 5.7 % (0.0-10.0); NEUT # 8.5 K/uL (1.8-7.0); NEUT % 79.6 % (50.0-75.0); NRBC % 0.1 % (0.0-0.0); RED CELL DISTRIBUTION WIDTH 15.3 % (11.5-14.5); WHITE BLOOD COUNT 10.7 K/uL (4.8-10.8)
--- NOTE | 2016-12-19 10:42 | ED PDOC ---
HPI:Nausea, Vomiting, Diarrhea Time Seen by Provider: 12/19/16 09:20 Chief Complaint (Nursing): GI Problem Chief Complaint (Provider): Hematemesis, hematochezia History Per: Patient History/Exam Limitations: no limitations Onset/Duration Of Symptoms: Days (x2) Current Symptoms Are (Timing): Still Present Additional Complaint(s): Dyllan is a 61 y/o male who presents to the ED complaining of hematemesis and hematochezia since last night. Patient reports 6 episodes of hematemesis and also bright red blood in the toilet. No fever, abdominal pain, or constipation. Patient has a history of cirrhosis and is on the transplant list. Recently finished an antibiotic given to him by GI specialist last week, and was able to get a refill. He feels the bleeding is related to this. PMD: Provider MUNIRA Past Medical History Reviewed: Historical Data, Nursing Documentation, Vital Signs Vital Signs: Last Vital Signs Temp 97.8 F 12/19/16 08:56 Pulse 70 12/19/16 08:56 Resp 17 12/19/16 08:56 BP 107/65 12/19/16 08:56 Pulse Ox 98 12/19/16 08:56 - Medical History PMH: Arthritis, Hepatitis (C), HTN, Pancreatitis, Peripheral Edema Denies: HIV, Chronic Kidney Disease Other PMH: Cirrhosis, awaiting transplant - Surgical History Other surgeries: Paracentesis, surgery for deviated septum - Family History Family History: States: Unknown Family Hx - Social History Ex-Smoker (has not smoked in the last 12 months): Yes Alcohol: Social Drugs: Other - Immunization History Hx Tetanus Toxoid Vaccination: No Hx Influenza Vaccination: No Hx Pneumococcal Vaccination: No - Home Medications Home Medications: Ambulatory Orders Medication Instructions Recorded rifAXIMin [Xifaxan] 550 mg PO Q12 04/10/16 Eplerenone [Inspra] 50 mg PO DAILY 05/09/16 Lactulose [Generlac] 30 ml PO DAILY 05/09/16 Nadolol [Corgard] 20 mg PO DAILY 05/09/16 Ropinirole HCl [Requip] 1 mg PO HS 06/13/16 Cyanocobalamin [Vitamin B12 1000 1 tab PO DAILY 07/04/16 mcg Tab] Ergocalciferol (Vitamin D2) 50,000 unit PO QWK 07/04/16 [Vitamin D2] Multivitamin [Multi-Vitamin Daily] 1 tab PO DAILY 07/04/16 Percival-3 Fatty Acids [Percival-3] 1 cap PO DAILY 07/04/16 Pantoprazole Sodium [Protonix] 40 mg PO DAILY 07/04/16 Furosemide [Lasix] 50 mg PO DAILY 07/15/16 Famciclovir 500 mg PO DAILY 08/02/16 Lamivudine [Epivir] 150 mg PO DAILY 08/02/16 Levofloxacin [Levaquin] 500 mg PO ASDIR 08/30/16 Dicyclomine [Dicyclomine HCl] 10 mg PO Q8 #10 cap 09/22/16 Famotidine [Pepcid] 20 mg PO Q12 #20 tab 09/22/16 - Allergies Allergies/Adverse Reactions: Allergies Allergy/AdvReac Type Severity Reaction Status Date / Time No Known Allergies Allergy Verified 12/19/16 11:16 Review of Systems ROS Statement: Except As Marked, All Systems Reviewed And Found Negative Constitutional: Negative for: Fever, Chills Gastrointestinal: Positive for: Hematochezia, Hematemesis. Negative for: Abdominal Pain, Constipation Physical Exam - Reviewed Nursing Documentation Reviewed: Yes Vital Signs Reviewed: Yes - Physical Exam Appears: Positive for: Non-toxic, No Acute Distress Head Exam: Positive for: ATRAUMATIC, NORMAL INSPECTION, NORMOCEPHALIC Skin: Positive for: Warm, Dry, Jaundice. Negative for: Normal Color Eye Exam: Positive for: EOMI, Normal appearance, PERRL Neck: Positive for: Normal, Painless ROM, Supple Cardiovascular/Chest: Positive for: Regular Rate, Rhythm. Negative for: Murmur Respiratory: Positive for: Normal Breath Sounds. Negative for: Accessory Muscle Use, Respiratory Distress Gastrointestinal/Abdominal: Positive for: Normal Exam, Soft. Negative for: Tenderness, Distended Back: Positive for: Normal Inspection. Negative for: L CVA Tenderness, R CVA Tenderness, Vertebral Tenderness Extremity: Positive for: Normal ROM. Negative for: Pedal Edema, Deformity Neurologic/Psych: Positive for: Alert, Oriented. Negative for: Motor/Sensory Deficits - Laboratory Results Result Diagrams: 12/20/16 12:25 12/20/16 04:20 - ECG O2 Sat by Pulse Oximetry: 98 (RA) Pulse Ox Interpretation: Normal - Critical Care Total Time (In Min): 45 Medical Decision Making Medical Decision Making: Time: 10:09 Initial Impression: GI bleeding Initial Plan: --Blood type and screen --EKG --CMP --CBC --PTT --Prothrombin time --Urine dipstick --Urinalysis --Pending reevaluation Time: 11:09 --Pantoprazole 40 mg IV Time: 12:31 --Ordered CT Abdomen/Pelvis with IV contrast Time: 13:44 CT ABDOMEN/PELVIS: FINDINGS: LOWER THORAX: Unremarkable. LIVER: The liver has an irregular contour consistent with cirrhosis. There is ascites around the liver. GALLBLADDER AND BILE DUCTS: Multiple stones and sludge can be seen in the gallbladder PANCREAS: Unremarkable. No gross lesion or ductal dilatation. SPLEEN: Unremarkable. ADRENALS: Unremarkable. No mass. KIDNEYS AND URETERS: Unremarkable. No hydronephrosis. No solid mass. VASCULATURE: Unremarkable. No aortic aneurysm. BOWEL: Unremarkable. No obstruction. No gross mural thickening. There is mural thickening throughout the small bowel consistent with enteritis or inflammatory bowel disease. There is also some mural thickening in the descending and sigmoid colon. There is minimal stranding of the fat planes around the descending colon. Findings are most consistent with entero colitis APPENDIX: Normal appendix. PERITONEUM: Unremarkable. No free fluid. No free air. LYMPH NODES: Unremarkable. No enlarged lymph nodes. BLADDER: Unremarkable. REPRODUCTIVE: Unremarkable. BONES: No acute fracture. OTHER FINDINGS: None. IMPRESSION: Mural thickening throughout the small bowel. Mural thickening in the descending and sigmoid colon. Findings consistent with an enterocolitis. Hepatic cirrhosis and ascites. Multiple gallstones Time: 13:06 --Patient admitted inpatient to the ICU for GIB and cirrhosis, under the service of Dr. Goyal Scribe Attestation: Documented by Anita Cheney, acting as a scribe for Edith Harper MD Provider Scribe Attestation: All medical record entries made by the Scribe were at my direction and personally dictated by me. I have reviewed the chart and agree that the record accurately reflects my personal performance of the history, physical exam, medical decision making, and the department course for this patient. I have also personally directed, reviewed, and agree with the discharge instructions and disposition. Disposition - Clinical Impression Clinical Impression: GI bleed - Patient ED Disposition Is Patient to be Admitted: Yes Counseled Patient/Family Regarding: Studies Performed - Disposition Disposition Time: 13:06 Condition: GUARDED - Pt Status Changed To: Hospital Disposition Of: Inpatient - Admit Certification Admit to Inpatient:: After my assessment, the patient will require hospitalization for at least two midnights. This is because of the severity of symptoms shown, intensity of services needed, and/or the medical risk in this patient being treated as an outpatient. - POA Present On Arrival: None
[2016-12-19 10:54] LABS: PARTIAL THROMBOPLASTIN TIME 32.1 Seconds (25.6-37.1)
[2016-12-19 10:55] LABS: ALKALINE PHOSPHATASE 93 U/L (38-126); ALT/SGPT 42 U/L (21-72); AST/SGOT 55 U/L (17-59); BILIRUBIN,TOTAL 1.1 mg/dl (0.2-1.3); BLOOD UREA NITROGEN 65 mg/dl (9-20); CALCIUM 8.5 mg/dL (8.4-10.2); CARBON DIOXIDE 24 mmol/L (22-30); CHLORIDE 113 mmol/L (98-107); GFR AFRICAN-AMERICAN > 60; GLUCOSE,RANDOM 114 mg/dL (75-110); SODIUM 144 mmol/l (132-148); TOTAL PROTEIN 6.5 G/DL (6.3-8.2)
[2016-12-19 10:59] LABS: ALB/GLOB RATIO 0.8 (1.0-2.1)
[2016-12-19 11:00] LABS: POTASSIUM 5.1 MMOL/L (3.6-5.0)
[2016-12-19 11:18] LABS: RBC URINE 3 /hpf (0-3); URINE BILIRUBIN NEGATIVE (NEGATIVE); URINE BLOOD NEGATIVE (NEGATIVE); URINE COLOR YELLOW (YELLOW); URINE GLUCOSE (UA) NEG (Normal); URINE KETONE TRACE mg/dL (NEGATIVE); URINE LEUKOCYTE ESTERASE NEG Leu/uL (Negative); URINE PROTEIN NEGATIVE (NEGATIVE); URINE UROBILINOGEN 0.2-1.0 mg/dL (0.2-1.0); WBC URINE 1 /hpf (0-5)
--- NOTE | 2016-12-19 12:03 | CARD ---
APPROVED REPORT EKG Measurement Heart [id number] <Conclusion> Normal sinus rhythm Normal ECG
[2016-12-19] MEDS ORDERED: Sodium Chloride 0.9% 50 ML IV ONE (12:49)
[2016-12-19] MEDS ORDERED: Iohexol 300 100 ML IJ ONE (12:49)
[2016-12-19] MEDS ORDERED: Succinylcholine 200 mg/10 ml Inj IV ONE (13:44)
[2016-12-19] MEDS ORDERED: Pantoprazole 40 MG in Sodium Chloride 0.9% 100 ML IVPB SCH (13:45)
--- NOTE | 2016-12-19 13:45 | CT ---
PROCEDURE: CT Abdomen and Pelvis with contrast HISTORY: UGIB/LGIB COMPARISON: None. TECHNIQUE: Contrast dose: 95 cc of Omni 300 Radiation dose: Total exam DLP = 382 mGy-cm. This CT exam was performed using one or more of the following dose reduction techniques: Automated exposure control, adjustment of the mA and/or kV according to patient size, and/or use of iterative reconstruction technique. FINDINGS: LOWER THORAX: Unremarkable. LIVER: The liver has an irregular contour consistent with cirrhosis. There is ascites around the liver. GALLBLADDER AND BILE DUCTS: Multiple stones and sludge can be seen in the gallbladder PANCREAS: Unremarkable. No gross lesion or ductal dilatation. SPLEEN: Unremarkable. ADRENALS: Unremarkable. No mass. KIDNEYS AND URETERS: Unremarkable. No hydronephrosis. No solid mass. VASCULATURE: Unremarkable. No aortic aneurysm. BOWEL: Unremarkable. No obstruction. No gross mural thickening. There is mural thickening throughout the small bowel consistent with enteritis or inflammatory bowel disease. There is also some mural thickening in the descending and sigmoid colon. There is minimal stranding of the fat planes around the descending colon. Findings are most consistent with entero colitis APPENDIX: Normal appendix. PERITONEUM: Unremarkable. No free fluid. No free air. LYMPH NODES: Unremarkable. No enlarged lymph nodes. BLADDER: Unremarkable. REPRODUCTIVE: Unremarkable. BONES: No acute fracture. OTHER FINDINGS: None. IMPRESSION: Mural thickening throughout the small bowel. Mural thickening in the descending and sigmoid colon. Findings consistent with an enterocolitis. Hepatic cirrhosis and ascites. Multiple gallstones
[2016-12-19] MEDS ORDERED: cefTRIAXone IV 1 gm in Dextros 50 ML IVPB ONE (13:46)
[2016-12-19] MEDS ORDERED: EPINEPHrine 1 mg/ml (1:1000) Inj ONE ×2 (14:07→15:36)
--- NOTE | 2016-12-19 14:07 | CP.PCM.CON ---
<Gely Cox - Last Filed: 12/19/16 14:52> History of Present Illness - History of Present Illness History of Present Illness: GI Fellow PGY4 Consult Note This is a 61 year old male pmhx Liver Cirrhosis, Esophageal Varices, Chronic Ascites, Chronic Anemia, Restless Leg Syndrome, Thrombocytopenia, Upper GI Bleed two years ago requiring banding of 3 varices at [facility] presented to [facility] ER with complaints of hematemesis and hematochezia this morning. Patient states that he woke up this morning between at 3AM with abdominal pain and went to the bathroom and noticed bright red blood per rectum and subsequently had 2 episodes of hematemesis and total 4 episodes of hematochezia till 6am. Pt also reports feeling very lightheaded. Patient was last admitted from 04/10/16 through 04/12/16 when he had an Upper GI Bleed with Upper Endoscopy which showed Grade II Esophageal Varices with no banding. Also, pt had an EGD in 2014 for Upper GI Bleed but no banding as source of bleed was not found. He is followed on an outpatient basis for his liver cirrhosis by GI Dr. Gibbs. Pt has had multiple vistis for paracenteiss and last paracentesis was 10/06 with 1100cc peritoneal fluid removed, no hx of SBP. Pt is followed by liver transplant team at [facility] in [place] and per the patient is on liver transplant list. Pt reports he had melena 2yrs ago at which time he had 3 variceal banding at [facility] and was placed on medication to lower his pressure. Pt reports he is on diuretics, rifaxamin and possibly nadolol. At the time of evaluation in the ER, pt is not having an active GI bleed, hemodynamically stable, Hgb 10 from 13.2 in September 2016. ROS: A 12pt ROS was negative except as above. PMHx: As stated in HPI PSHx: Multiple Paracentesis SHx: (+) Tobacco 4 to 5 cig/day, (+) Alcohol quit 20 years ago, (+)Cocaine Snorted quit 18 years ago FHx: Mom (Unspecified Lung Disease), Dad (Unspecified Liver Disease) Past Patient History - Infectious Disease Hx of Infectious Diseases: None - Tetanus Immunizations Tetanus Immunization: Unknown - Past Medical History & Family History Past Medical History?: Yes - Past Social History Alcohol: Social Drugs: Other - CARDIAC Hx Hypertension: Yes Hx Peripheral Edema: Yes - PULMONARY Hx Respiratory Disorders: No - NEUROLOGICAL Hx Neurological Disorder: Yes (Vertigo) Hx Dizziness: Yes - HEENT Hx HEENT Problems: No - RENAL Hx Chronic Kidney Disease: No - ENDOCRINE/METABOLIC Hx Endocrine Disorders: Yes (Hep C, cirrhosis) - HEMATOLOGICAL/ONCOLOGICAL Hx Human Immunodeficiency Virus (HIV): No - INTEGUMENTARY Hx Dermatological Problems: Yes 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 PARACENTESIS - ANESTHESIA Hx Anesthesia: Yes Hx Anesthesia Reactions: No Hx Malignant Hyperthermia: No Meds Allergies/Adverse Reactions: Allergies Allergy/AdvReac Type Severity Reaction Status Date / Time No Known Allergies Allergy Verified 12/19/16 11:16 - Medications Medications: Current Medications Octreotide Acetate 1,250 mcg/ (Sodium Chloride) 252.5 mls @ 10.1 mls/hr IV .Q24H DI; 50 MCG/HR PRN Reason: Protocol Ceftriaxone Sodium 1 gm/ (Sodium Chloride) 100 mls @ 100 mls/hr IVPB DAILY DI PRN Reason: Protocol Pantoprazole Sodium (Protonix Inj) 40 mg IVP BID DI Physical Exam - Constitutional Appears: Non-toxic, No Acute Distress, Cachectic - Head Exam Head Exam: ATRAUMATIC, NORMAL INSPECTION, NORMOCEPHALIC - Eye Exam Eye Exam: EOMI, Normal appearance, PERRL Pupil Exam: PERRL - ENT Exam ENT Exam: Mucous Membranes Moist, Normal Exam - Neck Exam Neck exam: Positive for: Normal Inspection - Respiratory Exam Respiratory Exam: Clear to Auscultation Bilateral, NORMAL BREATHING PATTERN - Cardiovascular Exam Cardiovascular Exam: REGULAR RHYTHM, RRR, +S1, +S2 - GI/Abdominal Exam GI & Abdominal Exam: Normal Bowel Sounds, Organomegaly, Soft. absent: Distended Additional comments: ascites, soft - Rectal Exam Rectal Exam: Deferred - Extremities Exam Extremities exam: Positive for: full ROM, normal inspection. Negative for: pedal edema - Back Exam Back exam: NORMAL INSPECTION - Neurological Exam Neurological exam: Alert, Oriented x3 - Psychiatric Exam Psychiatric exam: Normal Affect, Normal Mood - Skin Skin Exam: Dry, Intact, Normal Color, Warm Results - Vital Signs Recent Vital Signs: Last Vital Signs Temp 97.8 F 12/19/16 08:56 Pulse 70 12/19/16 08:56 Resp 17 12/19/16 08:56 BP 107/65 12/19/16 08:56 Pulse Ox 98 12/19/16 13:04 - Labs Result Diagrams: 12/19/16 10:29 12/19/16 10:29 Labs: Laboratory Results - last 24 hr 12/19/16 12/19/16 12/19/16 10:29 10:29 10:29 WBC 10.7 D RBC 2.80 L Hgb 10.0 L D Hct 28.9 L MCV 103.2 H D MCH 35.9 H MCHC 34.8 RDW 15.3 H Plt Count 124 L MPV 9.0 Neut % (Auto) 79.6 H Lymph % (Auto) 14.2 L [place] % (Auto) 5.7 Eos % (Auto) 0.0 Baso % (Auto) 0.5 Neut # 8.5 H Lymph # 1.5 [place] # 0.6 Eos # 0.0 Baso # 0.1 PT INR APTT Sodium 144 Potassium 5.1 H Chloride 113 H Carbon Dioxide 24 Anion Gap 12 BUN 65 H Creatinine 0.9 Est GFR ( Amer) > 60 Est GFR (Non-Af Amer) > 60 Random Glucose 114 H Calcium 8.5 Total Bilirubin 1.1 AST 55 ALT 42 Alkaline Phosphatase 93 Total Protein 6.5 Albumin 2.8 L Globulin 3.7 Albumin/Globulin Ratio 0.8 L Urine Color Urine Clarity Urine pH Ur Specific [place] Urine Protein Urine Glucose (UA) Urine Ketones Urine Blood Urine Nitrate Urine Bilirubin Urine Urobilinogen Ur Leukocyte Esterase Urine RBC (Auto) Urine Microscopic WBC Ur Squamous Epith Cells Blood Type A POSITIVE Antibody Screen Negative BBK History Checked Patient has bt 12/19/16 12/19/16 10:29 11:00 WBC RBC Hgb Hct MCV MCH MCHC RDW Plt Count MPV Neut % (Auto) Lymph % (Auto) [place] % (Auto) Eos % (Auto) Baso % (Auto) Neut # Lymph # [place] # Eos # Baso # PT 13.9 H INR 1.2 APTT 32.1 Sodium Potassium Chloride Carbon Dioxide Anion Gap BUN Creatinine Est GFR ( Amer) Est GFR (Non-Af Amer) Random Glucose Calcium Total Bilirubin AST ALT Alkaline Phosphatase Total Protein Albumin Globulin Albumin/Globulin Ratio Urine Color Yellow Urine Clarity Slighty-cloudy Urine pH 6.0 Ur Specific [place] 1.026 Urine Protein Negative Urine Glucose (UA) Neg Urine Ketones Trace Urine Blood Negative Urine Nitrate Negative Urine Bilirubin Negative Urine Urobilinogen 0.2-1.0 Ur Leukocyte Esterase Neg Urine RBC (Auto) 3 Urine Microscopic WBC 1 Ur Squamous Epith Cells < 1 Blood Type Antibody Screen BBK History Checked Assessment & Plan - Assessment and Plan (Free Text) Assessment: This is a 61y male with pmhx of liver cirrhosis, upper GI bleed, varices presenting with complaints of hematemesis and hematochezia. 1. Upper GI Bleed 2. Anemia 3. Cirrhosis 4. Recurrent Ascites Plan: -Continue supportive care -Ordered IV Octreotide drip -Ordered IV PPI BID -IV Rocephin 1G Daily -NPO -Plan for emergent EGD <Ubaldo Hadley MD - Last Filed: 12/19/16 21:56> Meds - Medications Medications: Current Medications Octreotide Acetate 1,250 mcg/ (Sodium Chloride) 252.5 mls @ 10.1 mls/hr IV .Q24H DI; 50 MCG/HR PRN Reason: Protocol Last Admin: 12/19/16 14:01 Dose: 10.1 mls/hr Ceftriaxone Sodium (Rocephin Iv 1 Gm Duplex) 50 mls @ 50 mls/hr IVPB DAILY DI PRN Reason: Protocol Last Admin: 12/19/16 14:23 Dose: 50 mls/hr Propofol (Diprivan) 1,000 mg in 100 mls @ 1.878 mls/hr IV .Q24H DI; 5 MCG/KG/ MIN PRN Reason: Protocol Stop: 12/20/16 16:21 Last Titration: 12/19/16 21:42 Dose: 35 mcg/kg/min, 13.145 mls/hr Pantoprazole Sodium (Protonix Inj) 40 mg IVP BID DI Last Admin: 12/19/16 16:38 Dose: 40 mg Results - Vital Signs Recent Vital Signs: Last Vital Signs Temp 97.9 F 12/19/16 20:00 Pulse 79 12/19/16 21:00 Resp 15 12/19/16 21:00 BP 106/68 12/19/16 21:00 Pulse Ox 100 12/19/16 21:00 - Labs Result Diagrams: 12/19/16 10:29 12/19/16 10:29 Labs: Laboratory Results - last 24 hr 12/19/16 12/19/16 12/19/16 05:55 10:29 10:29 WBC 15.0 H D 10.7 RBC 2.44 L 2.80 L Hgb 8.5 L D 10.0 L Hct 25.5 L 28.9 L MCV 104.7 H D 103.2 H MCH 34.9 H 35.9 H MCHC 33.4 34.8 RDW 15.4 H 15.3 H Plt Count 129 L 124 L MPV 9.0 Neut % (Auto) 79.6 H Lymph % (Auto) 14.2 L [place] % (Auto) 5.7 Eos % (Auto) 0.0 Baso % (Auto) 0.5 Neut # 8.5 H Lymph # 1.5 [place] # 0.6 Eos # 0.0 Baso # 0.1 PT INR APTT Sodium Potassium Chloride Carbon Dioxide Anion Gap BUN Creatinine Est GFR ( Amer) Est GFR (Non-Af Amer) Random Glucose Calcium Total Bilirubin AST ALT Alkaline Phosphatase Total Protein Albumin Globulin Albumin/Globulin Ratio Urine Color Urine Clarity Urine pH Ur Specific [place] Urine Protein Urine Glucose (UA) Urine Ketones Urine Blood Urine Nitrate Urine Bilirubin Urine Urobilinogen Ur Leukocyte Esterase Urine RBC (Auto) Urine Microscopic WBC Ur Squamous Epith Cells Alcohol, Quantitative Blood Type A POSITIVE Antibody Screen Negative BBK History Checked Patient has bt 12/19/16 12/19/16 12/19/16 10:29 10:29 11:00 WBC RBC Hgb Hct MCV MCH MCHC RDW Plt Count MPV Neut % (Auto) Lymph % (Auto) [place] % (Auto) Eos % (Auto) Baso % (Auto) Neut # Lymph # [place] # Eos # Baso # PT 13.9 H INR 1.2 APTT 32.1 Sodium 144 Potassium 5.1 H Chloride 113 H Carbon Dioxide 24 Anion Gap 12 BUN 65 H Creatinine 0.9 Est GFR ( Amer) > 60 Est GFR (Non-Af Amer) > 60 Random Glucose 114 H Calcium 8.5 Total Bilirubin 1.1 AST 55 ALT 42 Alkaline Phosphatase 93 Total Protein 6.5 Albumin 2.8 L Globulin 3.7 Albumin/Globulin Ratio 0.8 L Urine Color Yellow Urine Clarity Slighty-cloudy Urine pH 6.0 Ur Specific [place] 1.026 Urine Protein Negative Urine Glucose (UA) Neg Urine Ketones Trace Urine Blood Negative Urine Nitrate Negative Urine Bilirubin Negative Urine Urobilinogen 0.2-1.0 Ur Leukocyte Esterase Neg Urine RBC (Auto) 3 Urine Microscopic WBC 1 Ur Squamous Epith Cells < 1 Alcohol, Quantitative Blood Type Antibody Screen BBK History Checked 12/19/16 14:30 WBC RBC Hgb Hct MCV MCH MCHC RDW Plt Count MPV Neut % (Auto) Lymph % (Auto) [place] % (Auto) Eos % (Auto) Baso % (Auto) Neut # Lymph # [place] # Eos # Baso # PT INR APTT Sodium Potassium Chloride Carbon Dioxide Anion Gap BUN Creatinine Est GFR ( Amer) Est GFR (Non-Af Amer) Random Glucose Calcium Total Bilirubin AST ALT Alkaline Phosphatase Total Protein Albumin Globulin Albumin/Globulin Ratio Urine Color Urine Clarity Urine pH Ur Specific [place] Urine Protein Urine Glucose (UA) Urine Ketones Urine Blood Urine Nitrate Urine Bilirubin Urine Urobilinogen Ur Leukocyte Esterase Urine RBC (Auto) Urine Microscopic WBC Ur Squamous Epith Cells Alcohol, Quantitative < 10 Blood Type Antibody Screen BBK History Checked Attending/Attestation - Attestation I have personally seen and examined this patient.: Yes I have fully participated in the care of the patient.: Yes I have reviewed all pertinent clinical information: Yes Notes (Text): 12/19/16 21:51 Patient seen with GI fellow in endoscopy. This is a 61 year old male with pmhx of alcoholic cirrhosis decompensated with esophageal varices s/p banding in the past admitted with hematemesis and melena. Current MELD under scored at 9. Now s /p urgent EGD that showed distal esophageal varices s/p 2 bands and oozing fundic varices. Hemostasis achieved. Will need TIPS for group home treatment. Already on transplant list as per patient at [place]. Will continue octreotide gtt for 72 hours and give IV antibiotics. NPO. Refrain from putting NGT. CBC q 12 hours. No indication for blood transfusion with Hb 10. Will keep intubated for 24 hours to watch clinical course. Plan on transfer to [facility] for TIPS. Discussed with hosiery knitter and hospitalist. Discussed with professor of surgery at [place]
[2016-12-19] MEDS: cefTRIAXone IV 1 gm in Dextros 50 ML IVPB SCH (14:23)
[2016-12-19] MEDS ORDERED: Sodium Chloride 0.9% 1,000 ML IV ONE (14:42)
--- NOTE | 2016-12-19 14:54 | CP.PCM.HP ---
History of Present Illness - History of Present Illness History of Present Illness: 61 year old male with PMH of liver cirrhosis secondary to hepatitis C , chronic ascites requiring frequent abdominal parasenthesis ( last one 6 weeks ago), Esophageal Varices with prior bleed in 2013 requiring banding , Chronic Anemia, Thrombocytopenia , on liver transplant list at [facility], presented to ER with multiple episodes hematemesis and hematochezia. Patient states that he woke up this morning at 3AM went to the bathroom and had diarrhea with bright red blood per rectum and subsequently had 2 episodes of hematemesis and total 4 episodes of hematochezia .he also complained of feeling light headed.He denies any chest pain ,SOB, abdominal pain. At the time of evaluation in the ER,he is not having an active GI bleed, hemodynamically stable, Hgb 10 Code status; full code PMD; Dr Ponce Surrogate decision maker : significant other ( daughter's mom 0 July reyes [phone] Allergies ; NKDA PMH: liver cirrhosis secondary to hepatitis C , chronic ascites requiring frequent abdominal parasenthesis ( last one 6 weeks ago), Esophageal Varices with prior bleed in 2014 requiring banding , Chronic Anemia, Thrombocytopenia Surgeries : Multiple Paracentesis Social History : Lives alone in [place] , has a daughter, smoker 2-3 cigg/ day ,ETOH - quit 20 years ago, (+)Cocaine Snorted quit 18 years ago Family history : Mom (Unspecified Lung Disease), Dad (Unspecified Liver Disease) Medications; see med rec ROS ; 12 point review of system negative except above Present on Admission - Present on Admission Any Indicators Present on Admission: No Review of Systems - Review of Systems All systems: reviewed and no additional remarkable complaints except Past Patient History - Infectious Disease Hx of Infectious Diseases: None - Tetanus Immunizations Tetanus Immunization: Unknown - Past Medical History & Family History Past Medical History?: Yes Past Family History: Reviewed and not pertinent - Past Social History Smoking Status: Light Smoker < 10 Cigarettes Daily Chewing Tobacco Use: No Cigar Use: No 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 [employer] Alcohol: Social Drugs: Other Home Situation {Lives}: Alone Domestic Violence: Negative - CARDIAC Hx Hypertension: Yes Hx Peripheral Edema: Yes - PULMONARY Hx Respiratory Disorders: No - NEUROLOGICAL Hx Neurological Disorder: Yes (Vertigo) Hx Dizziness: Yes - HEENT Hx HEENT Problems: No - RENAL Hx Chronic Kidney Disease: No - ENDOCRINE/METABOLIC Hx Endocrine Disorders: Yes (Hep C, cirrhosis) - HEMATOLOGICAL/ONCOLOGICAL Hx Human Immunodeficiency Virus (HIV): No - INTEGUMENTARY Hx Dermatological Problems: Yes 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 PARACENTESIS - ANESTHESIA Hx Anesthesia: Yes Hx Anesthesia Reactions: No Hx Malignant Hyperthermia: No Meds Allergies/Adverse Reactions: Allergies Allergy/AdvReac Type Severity Reaction Status Date / Time No Known Allergies Allergy Verified 12/19/16 11:16 Physical Exam - Constitutional Appears: Non-toxic, No Acute Distress - Head Exam Head Exam: ATRAUMATIC, NORMOCEPHALIC - Eye Exam Eye Exam: EOMI, Normal appearance, PERRL Pupil Exam: NORMAL ACCOMODATION - ENT Exam ENT Exam: Mucous Membranes Dry - Neck Exam Neck exam: Positive for: Full Rom, Normal Inspection - Respiratory Exam Respiratory Exam: Clear to Auscultation Bilateral, NORMAL BREATHING PATTERN. absent: Rales, Rhonchi, Wheezes - Cardiovascular Exam Cardiovascular Exam: REGULAR RHYTHM, RRR, +S1, +S2. absent: JVD - GI/Abdominal Exam GI & Abdominal Exam: Normal Bowel Sounds, Soft. absent: Distended, Guarding, Rebound, Tenderness - Rectal Exam Rectal Exam: Deferred - Extremities Exam Extremities exam: Positive for: normal capillary refill, normal inspection, pedal pulses present. Negative for: calf tenderness, pedal edema - Back Exam Back exam: NORMAL INSPECTION - Neurological Exam Neurological exam: Alert, CN II-XII Intact - Psychiatric Exam Psychiatric exam: Normal Affect, Normal Mood - Skin Skin Exam: Dry, Intact, Warm Results - Vital Signs Recent Vital Signs: Last Vital Signs Temp 97.8 F 12/19/16 08:56 Pulse 70 12/19/16 08:56 Resp 17 12/19/16 08:56 BP 107/65 12/19/16 08:56 Pulse Ox 98 12/19/16 14:48 - Labs Result Diagrams: 12/19/16 10:29 12/19/16 10:29 Labs: Laboratory Results - last 24 hr 12/19/16 12/19/16 12/19/16 10:29 10:29 10:29 WBC 10.7 D RBC 2.80 L Hgb 10.0 L D Hct 28.9 L MCV 103.2 H D MCH 35.9 H MCHC 34.8 RDW 15.3 H Plt Count 124 L MPV 9.0 Neut % (Auto) 79.6 H Lymph % (Auto) 14.2 L [place] % (Auto) 5.7 Eos % (Auto) 0.0 Baso % (Auto) 0.5 Neut # 8.5 H Lymph # 1.5 [place] # 0.6 Eos # 0.0 Baso # 0.1 PT INR APTT Sodium 144 Potassium 5.1 H Chloride 113 H Carbon Dioxide 24 Anion Gap 12 BUN 65 H Creatinine 0.9 Est GFR ( Amer) > 60 Est GFR (Non-Af Amer) > 60 Random Glucose 114 H Calcium 8.5 Total Bilirubin 1.1 AST 55 ALT 42 Alkaline Phosphatase 93 Total Protein 6.5 Albumin 2.8 L Globulin 3.7 Albumin/Globulin Ratio 0.8 L Urine Color Urine Clarity Urine pH Ur Specific [place] Urine Protein Urine Glucose (UA) Urine Ketones Urine Blood Urine Nitrate Urine Bilirubin Urine Urobilinogen Ur Leukocyte Esterase Urine RBC (Auto) Urine Microscopic WBC Ur Squamous Epith Cells Alcohol, Quantitative Blood Type A POSITIVE Antibody Screen Negative BBK History Checked Patient has bt 12/19/16 12/19/16 12/19/16 10:29 11:00 14:30 WBC RBC Hgb Hct MCV MCH MCHC RDW Plt Count MPV Neut % (Auto) Lymph % (Auto) [place] % (Auto) Eos % (Auto) Baso % (Auto) Neut # Lymph # [place] # Eos # Baso # PT 13.9 H INR 1.2 APTT 32.1 Sodium Potassium Chloride Carbon Dioxide Anion Gap BUN Creatinine Est GFR ( Amer) Est GFR (Non-Af Amer) Random Glucose Calcium Total Bilirubin AST ALT Alkaline Phosphatase Total Protein Albumin Globulin Albumin/Globulin Ratio Urine Color Yellow Urine Clarity Slighty-cloudy Urine pH 6.0 Ur Specific [place] 1.026 Urine Protein Negative Urine Glucose (UA) Neg Urine Ketones Trace Urine Blood Negative Urine Nitrate Negative Urine Bilirubin Negative Urine Urobilinogen 0.2-1.0 Ur Leukocyte Esterase Neg Urine RBC (Auto) 3 Urine Microscopic WBC 1 Ur Squamous Epith Cells < 1 Alcohol, Quantitative < 10 Blood Type Antibody Screen BBK History Checked Assessment & Plan (1) GI bleed Status: Acute Priority: High Comment: GI consult stat, Dr Dionne Hadley. strated Octreotide drip , Protonix IV., IVF. For EGD. monitor H& H (2) Ascites Status: Chronic Priority: High Comment: Not distended , not tense not tender. last parasenthesis performed 6 weeks ago. Low Na diet (3) Liver cirrhosis Status: Chronic Priority: High Comment: on liver transplant list at [facility] (4) Thrombocytopenia Status: Chronic Priority: High Comment: stable (5) Anemia Status: Acute Comment: Acute on Chronic anemia. monitor h& H. transfuse PRN if needed. EGD (6) DVT prophylaxis Status: Acute Priority: High Comment: SCD
[2016-12-19] MEDS ORDERED: ePHEDrine 50 mg/ml Inj ONE (14:56)
[2016-12-19] MEDS ORDERED: Propofol 10 mg/ml Inj (20 ML) ONE (14:57)
[2016-12-19] MEDS ORDERED: Lidocaine 2% MPF (5 ml) Inj ONE (14:58)
[2016-12-19] MEDS ORDERED: Etomidate 20 mg/10ml Inj IV ONE (14:58)
[2016-12-19] MEDS ORDERED: Propofol 10 mg/ml 1,000 MG/100 ML VIAL ONE (16:24)
[2016-12-19] MEDS: Propofol 10 mg/ml 1,000 MG/100 ML VIAL IV SCH (16:33)
[2016-12-19] MEDS ORDERED: Pneumococcal 23-Valent Vaccine IM ONE (17:02)
[2016-12-19] MEDS ORDERED: Influenza Vaccine 18yr & older 0.5 ML/45 MCG SYR IM ONE (17:27)
[2016-12-19 18:17] LABS: HEMATOCRIT 25.5 % (35.0-51.0); MEAN CELL VOLUME 104.7 fl (80.0-94.0); MEAN CORPUSCULAR HEMOGLOBIN 34.9 pg (27.0-31.0); MEAN CORPUSCULAR HGB CONC 33.4 g/dL (33.0-37.0); RED CELL DISTRIBUTION WIDTH 15.4 % (11.5-14.5)
--- NOTE | 2016-12-19 23:39 | CON ---
CRITICAL CARE CONSULTATION DATE: 12/19/2016 The patient is being admitted to ICU. The patient is seen and evaluated at the request of emergency room physician/admitting physician, Dr. Goyal. HISTORY OF PRESENT ILLNESS: History is obtained from the patient. The patient is examined at the bedside. Mr. Scott is a 61-year-old male, a reformed smoker with history of social EtOH, hepatitis C infection acquired through a tattoo years ago with resultant hepatitis C related cirrhosis complicated with recurrent ascites requiring paracentesis. The patient is being evaluated by the liver transplant team at [facility] and reportedly is on the list. The patient's past paracentesis was done about 3 weeks ago. The patient reports that he has been in his usual state of health until early this morning. The patient woke up, went to bathroom. Noted to have bloody bowel movement followed by vomited mild blood reportedly x2 and had 3 bowel movements, felt dizzy, lightheaded. Came to emergency room. In the ER, the patient's vital signs showed temperature 97.8, heart rate 70, regular; respiratory rate 17, thoracoabdominal; blood pressure 107/65; pulse oximetry 98%. Initial examination was otherwise unremarkable. Lab data showed a hemoglobin of 10, hematocrit 28.9. BUN 65, creatinine 0.9, glucose 5.1. GI consult was called and being scheduled for endoscopy to assess the source of bleeding. He is being admitted to ICU for further monitoring of hematemesis, hematochezia and for transfusion as needed. PAST MEDICAL HISTORY: As noted above. Also includes arthritis, pancreatitis, hypertension, peripheral edema. Negative for HIV, chronic kidney disease. PAST SURGICAL HISTORY: Includes recurrent paracentesis and surgery for deviated septum. ALLERGIES: NO ALLERGY REPORTED. MEDICATIONS: Include Xifaxan 550 q. 12, Inspra 50 mg daily, lactulose 30 mL p.o. daily, Coreg 20 mg p.o. daily, ropinirole 1 mg p.o. at bedtime, cyanocobalamin/vitamin B12 1000 mcg daily, vitamin D 250,000 units once a week, multivitamin 1 tablet daily, omega-3 fatty acids 1 capsule p.o. daily, Protonix 40 daily, furosemide 50 mg daily, famciclovir 500 mg p.o. daily, lamivudine/Epivir 150 mg p.o. daily, levofloxacin 500 mg p.o. once daily, dicyclomine 10 mg p.o. q. 8, Pepcid 20 mg p.o. q. 12. PHYSICAL EXAMINATION: GENERAL: Middle-aged male, looks older than his stated age. Alert, oriented to name, place and time. No distress noted. VITAL SIGNS: Temperature 97.8, heart rate 70, blood pressure 107/65, respiratory rate 17, oxygen saturations 98% on room air. Intake, output not documented. Weight 138 pounds. HEENT: Pupils reactive. Conjunctivae pink. Sclerae muddy. NECK: Supple. CHEST: Bilateral breath sounds. Tattoo sameera present on the anterior chest wall as well as on both upper arms. HEART: Rhythm regular. S1, S2 normal. No audible murmur or rub. ABDOMEN: Bowel sounds present, soft. Mild distention. No tenderness. GENITOURINARY: Inguinal orifice is normal. Bladder not distended. EXTREMITIES: Trace edema, lower extremities. LABORATORY DATA: Shows WBC 10.7, hemoglobin 10, hematocrit 28.9, platelet count 124,000, neutrophils 79.6, lymphocytes 14.2, monocytes 5.7. PT . SMA-7: Sodium 144, potassium 5.1, chloride 113, CO2 24, blood urea nitrogen 65, creatinine 0.9, glucose is 114, calcium 10.5, total bilirubin 1.1, AST 55, ALT 42, alkaline phosphatase 93, total protein 6.5, albumin 2.8, albumin and globulin ratio 0.8. Urinalysis negative. IMPRESSION: 1. Hematemesis, followed by hematochezia, rule out esophageal varices given history of liver cirrhosis. 2. Hepatitis C infection, on treatment. Reportedly, the patient is on the transplant list at [facility]. 3. Hematology: No leukocytosis. Anemia of chronic disease. Thrombocytopenia. 4. Pulmonary: No acute issues. Saturating over 94%. 5. Renal: Prerenal azotemia, probably related to dehydration and/or due to protein load in the bowels from gastrointestinal bleeding. 6. Hypoalbuminemia secondary to liver disease. Continue gentle IV hydration. Currently, on octreotide 1250 in 1 L, sodium chloride at 10.1 mL/hour; Protonix 40 IV twice daily, ceftriaxone 1 g IV daily. GI consult requested from ER. Awaiting for diagnostic evaluation. Closely monitor for further drop in hemoglobin. Transfuse packed red blood cells as needed. Pako Montez MD
[2016-12-20 05:35] LABS: ABG ALLEN TEST YES; ABG MECHANICAL RATE 12; ARTERIAL BLOOD GAS HCO3 23.7 mmol/L (21-28); ARTERIAL BLOOD GAS MODE PRVC AC; ARTERIAL BLOOD GAS O2 CAPACITY 12.1 mL/dL (16-24); ARTERIAL BLOOD GAS O2 CONTENT 12.2 ML/dL (15-23); ARTERIAL BLOOD GAS PH 7.41 (7.35-7.45); ARTERIAL BLOOD GAS PO2 191 mm/Hg (80-100); CARBOXYHEMOGLOBIN 1.8 % (0.5-1.5); HHB -0.7 % (0.0-5.0); METHEMOGLOBIN 1.8 % (0.0-3.0)
[2016-12-20 05:51] LABS: BASO # 0.1 K/uL (0.0-0.2); BASO % 0.5 % (0.0-2.0); EOS # 0.1 K/uL (0.0-0.7); EOS % 0.8 % (0.0-4.0); HEMATOCRIT 27.1 % (35.0-51.0); LYMPH # 1.3 K/uL (1.0-4.3); LYMPH % 9.2 % (20.0-40.0); MEAN CELL VOLUME 104.1 fl (80.0-94.0); MEAN CORPUSCULAR HGB CONC 33.6 g/dL (33.0-37.0); MEAN PLATELET VOLUME 8.9 fl (7.2-11.7); MONO # 1.2 K/uL (0.0-0.8); NEUT # 11.9 K/uL (1.8-7.0); NEUT % 81.5 % (50.0-75.0); PLATELET COUNT 139 K/uL (130-400); RED CELL DISTRIBUTION WIDTH 15.6 % (11.5-14.5); WHITE BLOOD COUNT 14.6 K/uL (4.8-10.8)
[2016-12-20 05:52] LABS: BLOOD UREA NITROGEN 91 mg/dl (9-20); CALCIUM 8.1 mg/dL (8.4-10.2); CARBON DIOXIDE 21 mmol/L (22-30); CHLORIDE 116 mmol/L (98-107); GFR AFRICAN-AMERICAN > 60; GLUCOSE,RANDOM 97 mg/dL (75-110); POTASSIUM 4.4 MMOL/L (3.6-5.0); SODIUM 142 mmol/l (132-148)
--- NOTE | 2016-12-20 07:07 | RAD ---
HISTORY: ETT placement COMPARISON: 07/23/2014 FINDINGS: LUNGS: No active pulmonary disease. PLEURA: No significant pleural effusion identified, no pneumothorax apparent. CARDIOVASCULAR: No radiographic findings to suggest acute or significant cardiovascular disease. OSSEOUS STRUCTURES: No significant abnormalities. VISUALIZED UPPER ABDOMEN: Normal. OTHER FINDINGS: Satisfactory position of recently placed endotracheal tube. The tip is within 3 cm of the delfino. IMPRESSION: Satisfactory position of endotracheal tube. No active pulmonary disease.
--- NOTE | 2016-12-20 07:39 | CP.PCM.PN ---
<KennyGely - Last Filed: 12/20/16 13:38> Subjective - Date & Time of Evaluation Date of Evaluation: 12/20/16 Time of Evaluation: 06:50 - Subjective Subjective: GI Fellow PGY4 Progress Note Pt seen and evaluated at bedside, pt intubated on MV. Hemodynamically stable with no active GI bleed this am. ROS: Unable to be obtained 2/2 MV Objective - Vital Signs/Intake and Output Vital Signs (last 24 hours): Temp Pulse Resp BP Pulse Ox 98.4 F 82 15 90/47 L 100 12/20/16 04:00 12/20/16 07:00 12/20/16 07:00 12/20/16 07:00 12/20/16 07:00 Intake and Output: 12/20/16 12/20/16 06:59 18:59 Intake Total 264 Balance 264 - Medications Medications: Current Medications Octreotide Acetate 1,250 mcg/ (Sodium Chloride) 252.5 mls @ 10.1 mls/hr IV .Q24H DI; 50 MCG/HR PRN Reason: Protocol Last Admin: 12/19/16 14:01 Dose: 10.1 mls/hr Ceftriaxone Sodium (Rocephin Iv 1 Gm Duplex) 50 mls @ 50 mls/hr IVPB DAILY DI PRN Reason: Protocol Last Admin: 12/19/16 14:23 Dose: 50 mls/hr Propofol (Diprivan) 1,000 mg in 100 mls @ 1.878 mls/hr IV .Q24H DI; 5 MCG/KG/ MIN PRN Reason: Protocol Stop: 12/20/16 16:21 Last Titration: 12/20/16 06:25 Dose: 25 mcg/kg/min, 9.389 mls/hr Pantoprazole Sodium (Protonix Inj) 40 mg IVP BID DI Last Admin: 12/19/16 16:38 Dose: 40 mg - Labs Labs: 12/20/16 04:20 12/20/16 04:20 PT 13.9 Seconds (9.8-13.1) H 12/19/16 10:29 INR 1.2 (0.9-1.2) 12/19/16 10:29 APTT 32.1 Seconds (25.6-37.1) 12/19/16 10:29 Assessment and Plan - Assessment and Plan (Free Text) Assessment: This is a 61y male with pmhx of liver cirrhosis, upper GI bleed, varices presenting with complaints of hematemesis and hematochezia. 1. Upper GI Bleed-Variceal Bleed 2. Anemia 3. Cirrhosis 4. Recurrent Ascites 5. Mechanical ventilation Plan: -Continue supportive care with airway protection on mechanical ventilation, ICU managing -Continue IV Octreotide drip for 72hrs -Continue IV PPI BID -Continue IV Rocephin 1G Daily -NPO, do not place NGT -Hgb stable at 9.1 from 10, hemodynamically stable -No blood transfusion with Hgb -s/p emergent EGD with distal esophageal varices s/p 2 bands and oozing fundic varices -Pt needs TIPS to decrease portal hypertension and prevent further bleeding from fundic varcies -Pt already on transplant list as per patient at [facility]. 10. -Will discuss with ICU team for possible extubation -Plan on transfer to [facility] for TIPS, discussed with ICU fellow, waiting on bed availability -Will continue to follow pt closely and stay in touch with Fellow at [facility] for transfer <[facility] - Last Filed: 12/20/16 18:00> Objective - Vital Signs/Intake and Output Vital Signs (last 24 hours): Temp Pulse Resp BP Pulse Ox 97.3 F L 84 15 88/61 L 100 12/20/16 16:00 12/20/16 16:00 12/20/16 16:00 12/20/16 16:00 12/20/16 16:00 Intake and Output: 12/20/16 12/20/16 06:59 18:59 Intake Total 264 565 Output Total 400 Balance 264 165 - Medications Medications: Current Medications Octreotide Acetate 1,250 mcg/ (Sodium Chloride) 252.5 mls @ 10.1 mls/hr IV .Q24H DI; 50 MCG/HR PRN Reason: Protocol Last Admin: 12/20/16 16:26 Dose: 10.1 mls/hr Ceftriaxone Sodium (Rocephin Iv 1 Gm Duplex) 50 mls @ 50 mls/hr IVPB DAILY DI PRN Reason: Protocol Last Admin: 12/20/16 09:45 Dose: 50 mls/hr Sodium Chloride (Sodium Chloride 0.9%) 1,000 mls @ 100 mls/hr IV .Q10H DI Stop: 12/21/16 08:33 Last Admin: 12/20/16 09:43 Dose: 100 mls/hr Pantoprazole Sodium (Protonix Inj) 40 mg IVP BID DI Last Admin: 12/20/16 16:40 Dose: 40 mg - Labs Labs: 12/20/16 12:25 12/20/16 04:20 PT 13.9 Seconds (9.8-13.1) H 12/19/16 10:29 INR 1.2 (0.9-1.2) 12/19/16 10:29 APTT 32.1 Seconds (25.6-37.1) 12/19/16 10:29 Attending/Attestation - Attestation I have personally seen and examined this patient.: Yes I have fully participated in the care of the patient.: Yes I have reviewed all pertinent clinical information, including history, physical exam and plan: Yes Notes (Text): 12/20/16 17:55 Patient seen with GI fellow this am. This is a 61 year old male with pmhx of alcoholic cirrhosis decompensated with esophageal varices s/p banding in the past admitted with hematemesis and melena. Current MELD under scored at 9. Now s /p urgent EGD yesterday that showed distal esophageal varices s/p 2 bands and oozing fundic varices. Hemostasis achieved. Will need TIPS for termination clerk treatment. Already on transplant list as per patient at [facility]. Will continue octreotide gtt for 72 hours and give IV antibiotics. NPO. Refrain from putting NGT. CBC q 12 hours. Will keep intubated for 24 hours to watch clinical course. Plan on transfer to [place] for TIPS. Discussed with bottle house quality control technician and hospitalist and IR attending. Discussed with typesetter apprentice at [facility]
[2016-12-20] MEDS ORDERED: Sodium Chloride 0.9% 1,000 ML IV SCH (08:45)
[2016-12-20] MEDS: cefTRIAXone IV 1 gm in Dextros 50 ML IVPB SCH (09:45)
[2016-12-20 10:25] LABS: NEUTROPHIL 81 % (42-75); TOTAL CELLS COUNTED 100
[2016-12-20 10:26] LABS: LARGE PLATELETS PRESENT; PLATELET CLUMPS PRESENT
--- NOTE | 2016-12-20 11:46 | CP.PCM.PN ---
Subjective - Date & Time of Evaluation Date of Evaluation: 12/20/16 Time of Evaluation: 11:00 - Subjective Subjective: Pt remains intubated on Vent no further GI bleeding noted Emergent EGD done yesterday , noted oozing varices, banding done VS stable afebrile awaiting transfer to [facility] Objective - Vital Signs/Intake and Output Vital Signs (last 24 hours): Temp Pulse Resp BP Pulse Ox 99.1 F 100 H 19 98/78 L 100 12/20/16 08:00 12/20/16 10:00 12/20/16 10:00 12/20/16 10:00 12/20/16 10:00 Intake and Output: 12/20/16 12/20/16 06:59 18:59 Intake Total 264 60 Output Total 200 Balance 264 -140 - Medications Medications: Current Medications Octreotide Acetate 1,250 mcg/ (Sodium Chloride) 252.5 mls @ 10.1 mls/hr IV .Q24H DI; 50 MCG/HR PRN Reason: Protocol Last Admin: 12/19/16 14:01 Dose: 10.1 mls/hr Ceftriaxone Sodium (Rocephin Iv 1 Gm Duplex) 50 mls @ 50 mls/hr IVPB DAILY DI PRN Reason: Protocol Last Admin: 12/20/16 09:45 Dose: 50 mls/hr Propofol (Diprivan) 1,000 mg in 100 mls @ 1.878 mls/hr IV .Q24H DI; 5 MCG/KG/ MIN PRN Reason: Protocol Stop: 12/20/16 16:21 Last Titration: 12/20/16 06:25 Dose: 25 mcg/kg/min, 9.389 mls/hr Sodium Chloride (Sodium Chloride 0.9%) 1,000 mls @ 100 mls/hr IV .Q10H DI Stop: 12/21/16 08:33 Last Admin: 12/20/16 09:43 Dose: 100 mls/hr Pantoprazole Sodium (Protonix Inj) 40 mg IVP BID DI Last Admin: 12/20/16 09:42 Dose: 40 mg - Labs Labs: 12/20/16 04:20 12/20/16 04:20 PT 13.9 Seconds (9.8-13.1) H 12/19/16 10:29 INR 1.2 (0.9-1.2) 12/19/16 10:29 APTT 32.1 Seconds (25.6-37.1) 12/19/16 10:29 - Constitutional Appears: Other (Pt is intubated on Mech Vent) - Head Exam Head Exam: NORMAL INSPECTION, NORMOCEPHALIC - Eye Exam Eye Exam: Normal appearance, PERRL - ENT Exam ENT Exam: Mucous Membranes Dry, Normal External Ear Exam - Respiratory Exam Respiratory Exam: Rhonchi. absent: Wheezes Additional comments: Intubated on Mech Vent - Cardiovascular Exam Cardiovascular Exam: REGULAR RHYTHM, +S1, +S2 - GI/Abdominal Exam GI & Abdominal Exam: Soft, Normal Bowel Sounds - Extremities Exam Extremities Exam: Normal Capillary Refill - Neurological Exam Additional comments: Pt is sedated, intubated on Vent - Skin Skin Exam: Dry, Normal Color, Warm Assessment and Plan - Assessment and Plan (Free Text) Assessment: 61 year old male with PMH of liver cirrhosis secondary to hepatitis C , chronic ascites requiring frequent abdominal parasenthesis ( last one 6 weeks ago), Esophageal Varices with prior bleed in 2013 requiring banding , Chronic Anemia, Thrombocytopenia , on liver transplant list at [facility], presented to ER with multiple episodes hematemesis and hematochezia. Emergency EGD done - by Dr Hadley : oozing Esophageal varices seen. (1) GI bleed sec to Bleeding Esopageal Varicess Acute Pt admitted to ICU , intubated for airway protection Patient is s/p EGD that showed oozing fundus varices , banding of varices done Continue Octreotide drip and Protonix 40 mg IV BID. GI following pt Awaiting bed at [facility] for transfer for poss TIPS - pt was refrerred by Dr Hadley cont IV ceftriaxone (2) Ascites sec to Cirrhosis Status: Chronic Comment: Not distended , not tense not tender. last paracentesis performed 6 weeks ago. Low Na diet (3) Liver cirrhosis, sec to Hep C Status: Chronic Priority: High Comment: on liver transplant list at [facility] (4) Thrombocytopenia sec to Cirrhosis Status: Chronic Priority: High Comment: stable (5) Anemia Status: Acute Comment: Acute on Chronic anemia. (6) DVT prophylaxis Status: Acute Priority: High Comment: SCD no anticoag sec to GI bleed
[2016-12-20 13:16] LABS: HEMATOCRIT 24.6 % (35.0-51.0); MEAN CELL VOLUME 104.1 fl (80.0-94.0); MEAN CORPUSCULAR HEMOGLOBIN 34.5 pg (27.0-31.0); MEAN CORPUSCULAR HGB CONC 33.1 g/dL (33.0-37.0); RED CELL DISTRIBUTION WIDTH 15.8 % (11.5-14.5); WHITE BLOOD COUNT 14.3 K/uL (4.8-10.8)
[2016-12-20 16:11] VITALS: TEMP 97.3
--- NOTE | 2016-12-20 16:12 | CP.CCUPN ---
CCU Subjective - Physician Review Events Since Last Encounter (Free Text): 12/20/16 The patient was interviewed and examined by me at the bedside, Medical records reviewed and Management issues were discussed and formulated with the house staff 61 Years old Male with PMHx of HTN, Pancreatitis, Hepatitis (C), Chronic Ascites , Chronic Anemia/ Thrombocytopenia,, Restless Leg Syndrome, Liver Cirrhosis (on liver transplant list at [facility],), Esophageal Varices S/p Upper GI Bleed two years ago requiring banding of 3 varices Who presents to the Emergency department 12/19 complaining of hematemesis and hematochezia since last night. Patient admitted to the ICU for upper GI bleeding, underwent EJD yesterday and he was electively intubated for the procedure, Found to have stage iii esophageal varices at the GE junction and oozing fundic varices, he was kept intubated post-procedure due to Active GI bleeding This morning, patient is orally intubated, sedated with propofol drip, On Octreotide drip, BID IV Pantoprazole and IV Hydration started with IV 0.9% NS at 100 cc/H No Vasopressors Comfortable, NAD Afebrile, NSR on the monitor This morning labs revealed H/H drop 28.9-9.03/18 and further drop this afternoon 8.03/15. Rectal exam done by GI team, Guaiac positive Patient scheduled for transfer to [facility], GI attending discussed with the accepting team there, ICU bed has not been available yet, mean time weaning off the sedation, then will place on CPAP trail and giving patient chance to be extubated, Type and cross match 2U packed RBC and will repeat H/H in 4 hours, Extubation planning pending stability of H/H and control of GI bleeding. 12/20/16 16:59 CCU Objective - Vital Signs / Intake & Output Vital Signs (Last 4 hours): Vital Signs Pulse Resp BP Pulse Ox 12/20/16 14:00 85 16 111/74 100 Intake and Output (Last 8hrs): Intake & Output 12/20/16 12/20/16 12/20/16 06:59 14:59 22:59 Intake Total 172 540 Output Total 400 Balance 172 140 Intake: IV 172 140 Intake, Piggyback 400 Output: Urine 400 Urethral (Chen) 400 - Physical Exam Physical Exam Limitations: Positive for: Clinical Condition Head: Positive for: Atraumatic, Normocephalic. Negative for: Tenderness, Contusion, Swelling, Ecchymosis Pupils: Positive for: PERRL. Negative for: Sluggish, Non-Reactive, Pinpoint Extroacular Muscles: Positive for: EOMI. Negative for: Gaze Palsy, Entrapment Conjunctiva: Positive for: Normal. Negative for: Injected, Icteric Mouth: Positive for: Moist Mucous Membranes Nose (Internal): Positive for: Normal Inspection, No Active Bleeding Neck: Positive for: Normal Range of Motion, Trachea Midline. Negative for: Meningeal Signs, MIDLINE TENDERNESS, Paraspinal Tenderness, JVD, Lymphadenopathy , Bruit, Other Respiratory/Chest: Positive for: Clear to Auscultation, Good Air Exchange. Negative for: Respiratory Distress, Accessory Muscle Use, Wheezes, Rales, Retracting, Rhonchi, Tachypneic, Tender to Palpation Cardiovascular: Positive for: Regular Rate and Rhythm, Normal S1, S2, Peripheal Pulses Present. Negative for: Murmurs, Irregular Rhythm, Tachycardic, Bradycardic, Rub Abdomen: Positive for: Distention, Normal Bowel Sounds. Negative for: Tenderness, Rebound, Guarding Rectal: Positive for: Occult Blood (Rectal exam done by GI team, Guiac positive) Back: Positive for: Normal Inspection Upper Extremity: Positive for: Normal Inspection, NORMAL PULSES, Capillary Refill < 2s. Negative for: Cyanosis, Edema Lower Extremity: Positive for: Normal Inspection, NORMAL PULSES, Capillary Refill < 2 s. Negative for: Edema, CALF TENDERNESS Neurological: Positive for: Other (Sedated) Skin: Positive for: Warm, Dry - Medications Active Medications: Active Medications Generic Name Dose Route Start Last Admin Trade Name Freq PRN Reason Stop Dose Admin Octreotide Acetate 1,250 mcg/ 252.5 mls @ 10.1 mls/hr 12/19/16 13:15 14:01 Sodium Chloride IV 10.1 mls/hr .Q24H DI Administration Protocol 50 MCG/HR Ceftriaxone Sodium 50 mls @ 50 mls/hr 12/19/16 14:15 12/20/16 09:45 Rocephin Iv 1 Gm Duplex IVPB 50 mls/hr DAILY DI Administration Protocol Propofol 1,000 mg in 100 mls @ 1.878 mls/hr 12/19/16 16:30 12/20/16 06:25 Diprivan IV 12/20/16 16:21 25 mcg/kg/min .Q24H DI 9.389 mls/hr Protocol Titration 5 MCG/KG/MIN Sodium Chloride 1,000 mls @ 100 mls/hr 12/20/16 08:45 12/20/16 09:43 Sodium Chloride 0.9% IV 12/21/16 08:33 100 mls/hr .Q10H DI Administration Pantoprazole Sodium 40 mg 12/19/16 17:00 12/20/16 09:42 Protonix Inj IVP 40 mg BID DI Administration - Patient Studies Lab Studies: Lab Studies 12/20/16 12/20/16 12/20/16 Range/Units 12:25 05:32 05:27 WBC 14.3 H (4.8-10.8) K/uL RBC 2.36 L (4.40-5.90) Mil/uL Hgb 8.1 L (12.0-18.0) g/dL Hct 24.6 L (35.0-51.0) % MCV 104.1 H (80.0-94.0) fl MCH 34.5 H (27.0-31.0) pg MCHC 33.1 (33.0-37.0) g/dL RDW 15.8 H (11.5-14.5) % Plt Count 116 L D (130-400) K/uL MPV (7.2-11.7) fl Neut % (Auto) (50.0-75.0) % Lymph % (Auto) (20.0-40.0) % [place] % (Auto) (0.0-10.0) % Eos % (Auto) (0.0-4.0) % Baso % (Auto) (0.0-2.0) % Neut # (1.8-7.0) K/uL Lymph # (1.0-4.3) K/uL [place] # (0.0-0.8) K/uL Eos # (0.0-0.7) K/uL Baso # (0.0-0.2) K/uL Neutrophils % (Manual) (42-75) % Lymphocytes % (Manual) (20-50) % Monocytes % (Manual) (0-10) % Platelet Estimate (NORMAL) Plt Clumps, EDTA Large Platelets Hypochromasia (manual) Anisocytosis (manual) Macrocytosis (manual) pCO2 36 (35-45) mm/Hg pO2 191 H (80-100) mm/Hg HCO3 23.7 (21-28) mmol/L ABG pH 7.41 (7.35-7.45) ABG Total CO2 23.9 (22-28) mmol/L ABG O2 Saturation 100.7 H (95-98) % ABG O2 Content 12.2 L (15-23) ML/dL ABG Base Excess -1.6 (-2.0-3.0) mmol/L ABG Hemoglobin 8.6 L (11.7-17.4) g/dL ABG Carboxyhemoglobin 1.8 H (0.5-1.5) % POC ABG HHb (Measured) -0.7 L (0.0-5.0) % ABG Methemoglobin 1.8 (0.0-3.0) % ABG O2 Capacity 12.1 L (16-24) mL/dL Sg Test Yes A-a O2 Difference 121.0 mm/Hg Hgb O2 Saturation 97.0 (95.0-98.0) % Vent Mode Prvc ac Mechanical Rate 12 FiO2 50.0 % Tidal Volume 450 Sodium (132-148) mmol/l Potassium (3.6-5.0) MMOL/L Chloride (98-107) mmol/L Carbon Dioxide (22-30) mmol/L Anion Gap (10-20) BUN (9-20) mg/dl Creatinine (0.8-1.5) mg/dL Est GFR ( Amer) Est GFR (Non-Af Amer) POC Glucose (mg/dL) 100 (65-110) mg/dL Random Glucose (75-110) mg/dL Calcium (8.4-10.2) mg/dL 12/20/16 12/20/16 12/19/16 Range/Units 04:20 04:20 10:29 WBC 14.6 H 10.7 (4.8-10.8) K/uL RBC 2.61 L 2.80 L (4.40-5.90) Mil/uL Hgb 9.1 L 10.0 L (12.0-18.0) g/dL Hct 27.1 L 28.9 L (35.0-51.0) % MCV 104.1 H 103.2 H (80.0-94.0) fl MCH 35.0 H 35.9 H (27.0-31.0) pg MCHC 33.6 34.8 (33.0-37.0) g/dL RDW 15.6 H 15.3 H (11.5-14.5) % Plt Count 139 124 L (130-400) K/uL MPV 8.9 9.0 (7.2-11.7) fl Neut % (Auto) 81.5 H 79.6 H (50.0-75.0) % Lymph % (Auto) 9.2 L 14.2 L (20.0-40.0) % [place] % (Auto) 8.0 5.7 (0.0-10.0) % Eos % (Auto) 0.8 0.0 (0.0-4.0) % Baso % (Auto) 0.5 0.5 (0.0-2.0) % Neut # 11.9 H 8.5 H (1.8-7.0) K/uL Lymph # 1.3 1.5 (1.0-4.3) K/uL [place] # 1.2 H 0.6 (0.0-0.8) K/uL Eos # 0.1 0.0 (0.0-0.7) K/uL Baso # 0.1 0.1 (0.0-0.2) K/uL Neutrophils % (Manual) 81 H (42-75) % Lymphocytes % (Manual) 12 L (20-50) % Monocytes % (Manual) 7 (0-10) % Platelet Estimate Normal (NORMAL) Plt Clumps, EDTA Present Large Platelets Present Hypochromasia (manual) Slight Anisocytosis (manual) Slight Macrocytosis (manual) Slight pCO2 (35-45) mm/Hg pO2 (80-100) mm/Hg HCO3 (21-28) mmol/L ABG pH (7.35-7.45) ABG Total CO2 (22-28) mmol/L ABG O2 Saturation (95-98) % ABG O2 Content (15-23) ML/dL ABG Base Excess (-2.0-3.0) mmol/L ABG Hemoglobin (11.7-17.4) g/dL ABG Carboxyhemoglobin (0.5-1.5) % POC ABG HHb (Measured) (0.0-5.0) % ABG Methemoglobin (0.0-3.0) % ABG O2 Capacity (16-24) mL/dL Sg Test A-a O2 Difference mm/Hg Hgb O2 Saturation (95.0-98.0) % Vent Mode Mechanical Rate FiO2 % Tidal Volume Sodium 142 (132-148) mmol/l Potassium 4.4 (3.6-5.0) MMOL/L Chloride 116 H (98-107) mmol/L Carbon Dioxide 21 L (22-30) mmol/L Anion Gap 9 L (10-20) BUN 91 H (9-20) mg/dl Creatinine 1.4 (0.8-1.5) mg/dL Est GFR ( Amer) > 60 Est GFR (Non-Af Amer) 52 POC Glucose (mg/dL) (65-110) mg/dL Random Glucose 97 (75-110) mg/dL Calcium 8.1 L (8.4-10.2) mg/dL 12/19/16 Range/Units 05:55 WBC 15.0 H D (4.8-10.8) K/uL RBC 2.44 L (4.40-5.90) Mil/uL Hgb 8.5 L D (12.0-18.0) g/dL Hct 25.5 L (35.0-51.0) % MCV 104.7 H D (80.0-94.0) fl MCH 34.9 H (27.0-31.0) pg MCHC 33.4 (33.0-37.0) g/dL RDW 15.4 H (11.5-14.5) % Plt Count 129 L (130-400) K/uL MPV (7.2-11.7) fl Neut % (Auto) (50.0-75.0) % Lymph % (Auto) (20.0-40.0) % [place] % (Auto) (0.0-10.0) % Eos % (Auto) (0.0-4.0) % Baso % (Auto) (0.0-2.0) % Neut # (1.8-7.0) K/uL Lymph # (1.0-4.3) K/uL [place] # (0.0-0.8) K/uL Eos # (0.0-0.7) K/uL Baso # (0.0-0.2) K/uL Neutrophils % (Manual) (42-75) % Lymphocytes % (Manual) (20-50) % Monocytes % (Manual) (0-10) % Platelet Estimate (NORMAL) Plt Clumps, EDTA Large Platelets Hypochromasia (manual) Anisocytosis (manual) Macrocytosis (manual) pCO2 (35-45) mm/Hg pO2 (80-100) mm/Hg HCO3 (21-28) mmol/L ABG pH (7.35-7.45) ABG Total CO2 (22-28) mmol/L ABG O2 Saturation (95-98) % ABG O2 Content (15-23) ML/dL ABG Base Excess (-2.0-3.0) mmol/L ABG Hemoglobin (11.7-17.4) g/dL ABG Carboxyhemoglobin (0.5-1.5) % POC ABG HHb (Measured) (0.0-5.0) % ABG Methemoglobin (0.0-3.0) % ABG O2 Capacity (16-24) mL/dL Sg Test A-a O2 Difference mm/Hg Hgb O2 Saturation (95.0-98.0) % Vent Mode Mechanical Rate FiO2 % Tidal Volume Sodium (132-148) mmol/l Potassium (3.6-5.0) MMOL/L Chloride (98-107) mmol/L Carbon Dioxide (22-30) mmol/L Anion Gap (10-20) BUN (9-20) mg/dl Creatinine (0.8-1.5) mg/dL Est GFR ( Amer) Est GFR (Non-Af Amer) POC Glucose (mg/dL) (65-110) mg/dL Random Glucose (75-110) mg/dL Calcium (8.4-10.2) mg/dL Laboratory Results - last 24 hr 12/19/16 12/19/16 12/20/16 05:55 10:29 04:20 WBC 15.0 H D 10.7 14.6 H RBC 2.44 L 2.80 L 2.61 L Hgb 8.5 L D 10.0 L 9.1 L Hct 25.5 L 28.9 L 27.1 L MCV 104.7 H D 103.2 H 104.1 H MCH 34.9 H 35.9 H 35.0 H MCHC 33.4 34.8 33.6 RDW 15.4 H 15.3 H 15.6 H Plt Count 129 L 124 L 139 MPV 9.0 8.9 Neut % (Auto) 79.6 H 81.5 H Lymph % (Auto) 14.2 L 9.2 L [place] % (Auto) 5.7 8.0 Eos % (Auto) 0.0 0.8 Baso % (Auto) 0.5 0.5 Neut # 8.5 H 11.9 H Lymph # 1.5 1.3 [place] # 0.6 1.2 H Eos # 0.0 0.1 Baso # 0.1 0.1 Neutrophils % (Manual) 81 H Lymphocytes % (Manual) 12 L Monocytes % (Manual) 7 Platelet Estimate Normal Plt Clumps, EDTA Present Large Platelets Present Hypochromasia (manual) Slight Anisocytosis (manual) Slight Macrocytosis (manual) Slight pCO2 pO2 HCO3 ABG pH ABG Total CO2 ABG O2 Saturation ABG O2 Content ABG Base Excess ABG Hemoglobin ABG Carboxyhemoglobin POC ABG HHb (Measured) ABG Methemoglobin ABG O2 Capacity Sg Test A-a O2 Difference Hgb O2 Saturation Vent Mode Mechanical Rate FiO2 Tidal Volume Sodium Potassium Chloride Carbon Dioxide Anion Gap BUN Creatinine Est GFR ( Amer) Est GFR (Non-Af Amer) POC Glucose (mg/dL) Random Glucose Calcium 12/20/16 12/20/16 12/20/16 04:20 05:27 05:32 WBC RBC Hgb Hct MCV MCH MCHC RDW Plt Count MPV Neut % (Auto) Lymph % (Auto) [place] % (Auto) Eos % (Auto) Baso % (Auto) Neut # Lymph # [place] # Eos # Baso # Neutrophils % (Manual) Lymphocytes % (Manual) Monocytes % (Manual) Platelet Estimate Plt Clumps, EDTA Large Platelets Hypochromasia (manual) Anisocytosis (manual) Macrocytosis (manual) pCO2 36 pO2 191 H HCO3 23.7 ABG pH 7.41 ABG Total CO2 23.9 ABG O2 Saturation 100.7 H ABG O2 Content 12.2 L ABG Base Excess -1.6 ABG Hemoglobin 8.6 L ABG Carboxyhemoglobin 1.8 H POC ABG HHb (Measured) -0.7 L ABG Methemoglobin 1.8 ABG O2 Capacity 12.1 L Sg Test Yes A-a O2 Difference 121.0 Hgb O2 Saturation 97.0 Vent Mode Prvc ac Mechanical Rate 12 FiO2 50.0 Tidal Volume 450 Sodium 142 Potassium 4.4 Chloride 116 H Carbon Dioxide 21 L Anion Gap 9 L BUN 91 H Creatinine 1.4 Est GFR ( Amer) > 60 Est GFR (Non-Af Amer) 52 POC Glucose (mg/dL) 100 Random Glucose 97 Calcium 8.1 L 12/20/16 12:25 WBC 14.3 H RBC 2.36 L Hgb 8.1 L Hct 24.6 L MCV 104.1 H MCH 34.5 H MCHC 33.1 RDW 15.8 H Plt Count 116 L D MPV Neut % (Auto) Lymph % (Auto) [place] % (Auto) Eos % (Auto) Baso % (Auto) Neut # Lymph # [place] # Eos # Baso # Neutrophils % (Manual) Lymphocytes % (Manual) Monocytes % (Manual) Platelet Estimate Plt Clumps, EDTA Large Platelets Hypochromasia (manual) Anisocytosis (manual) Macrocytosis (manual) pCO2 pO2 HCO3 ABG pH ABG Total CO2 ABG O2 Saturation ABG O2 Content ABG Base Excess ABG Hemoglobin ABG Carboxyhemoglobin POC ABG HHb (Measured) ABG Methemoglobin ABG O2 Capacity Sg Test A-a O2 Difference Hgb O2 Saturation Vent Mode Mechanical Rate FiO2 Tidal Volume Sodium Potassium Chloride Carbon Dioxide Anion Gap BUN Creatinine Est GFR ( Amer) Est GFR (Non-Af Amer) POC Glucose (mg/dL) Random Glucose Calcium Review of Systems - Review of Systems Systems not reviewed;Unavailable: Intubated Critical Care Progress Note - Ventilator Checklist Head of Bed 30 Degrees: Yes Daily Sedation Vacation: Yes Daily Assessment of Readiness to Wean: Yes Daily Spontaneous Breathing Trial: Yes PUD Prophalyxis: Yes DVT Prophylaxis: Yes Oral Care with Chlorhexidine Gluconate {CHG}: Yes Assessment/Plan (1) Upper GI bleeding Current Visit: Yes Status: Acute Priority: High (2) Esophageal varices determined by endoscopy Current Visit: Yes Status: Acute Priority: High (3) Gastritis Current Visit: Yes Status: Acute Priority: High (4) Liver cirrhosis Current Visit: No Status: Chronic Priority: High Comment: (5) Coagulopathy Current Visit: No Status: Acute Priority: Medium - Assessment and Plan (Free Text) Assessment: - Acute upper GI bleed due to Esophageal Varices s/p EJD, showed Gastritis, Grade III esophageal varices and banding yesterday - Respiratory failure, orally intubated - Liver Cirrhosis, Likely sec to Hep C Patient on the liver transplant list at [facility] - Chronic Ascites S/P multiple paracenteiss and last paracentesis was 10/06 - Anemia sec to acute Blood loss - Chronic Anemia, Thrombocytopenia - Continue with ICU care for hemodynamic monitoring - Two large bore peripheral catheters - Full vent support for now - NPO - Volume resuscitation - IV Hydration, with SODIUM CHLORIDE 0.9% INJ @ 100 ml/hr - IV BID PANTOPRAZOLE - OCTREOTIDE drip x 72 hours - IV Rocephin for SBP, Pt with ascitus in the sitting of active bleed - Serial CBCs q 6 /HR - Active type and cross match sent today - GI evaluation appreciated, S/p endoscopy - Patient is for transfer to [facility] for TIPS to decrease portal hypertension, he is on the transplant list there, multiple calls made, pending ICU bed availability. - DVT PPx: SCD
[2016-12-20] MEDS: Propofol 10 mg/ml 1,000 MG/100 ML VIAL IV SCH (16:29)
[2016-12-20 18:14] VITALS: BP 95/67; PULSE 89; RESP 16
--- NOTE | 2016-12-21 17:40 | CP.PCM.PCO ---
Physician Communication Note - Physician Communication Note Physician Communication Note: Patient transferred to [facility] yesterday for TIPS procedure and n
[2016-12-21 23:21] VITALS: O2SAT 98
== END 2016-12-20 18:30 | disposition short-term general hospital (02) | DRG 299 ==
LOC: H.ER 08:52 → H.ERHOLD 13:06 → H.ICU/CCU 16:19
PROVIDERS: ADMIT Hospitalist; ATTEND Hospitalist
PROC: 5A1935Z Respiratory Ventilation, Less than 24 Consecutive Hours (ICD-10-PCS; 2016-12-19)
PROC: 0BH17EZ Insertion of Endotracheal Airway into Trachea, Via Natural or Artificial Opening (ICD-10-PCS; 2016-12-19)
PROC: 3E0234Z Introduction of Serum, Toxoid and Vaccine into Muscle, Percutaneous Approach (ICD-10-PCS; 2016-12-19)
PROC: 06L38CZ Occlusion of Esophageal Vein with Extraluminal Device, Via Natural or Artificial Opening Endoscopic (ICD-10-PCS; principal; 2016-12-19 14:00)
DX: I86.4 Gastric varices (principal); I85.11 Secondary esophageal varices with bleeding; J96.90 Respiratory failure, unspecified, unspecified whether with hypoxia or hypercapnia; D62 Acute posthemorrhagic anemia; D68.9 Coagulation defect, unspecified; Z76.82 Awaiting organ transplant status; K70.31 Alcoholic cirrhosis of liver with ascites; D69.59 Other secondary thrombocytopenia; E86.0 Dehydration; B19.20 Unspecified viral hepatitis C without hepatic coma; E88.09 Other disorders of plasma-protein metabolism, not elsewhere classified; D63.8 Anemia in other chronic diseases classified elsewhere; I10 Essential (primary) hypertension; K29.70 Gastritis, unspecified, without bleeding; G25.81 Restless legs syndrome; L40.8 Other psoriasis; Z78.1 Physical restraint status; Z23 Encounter for immunization; F17.210 Nicotine dependence, cigarettes, uncomplicated

== ENCOUNTER 2017-02-28 10:56 | Emergency (ER) | payer OTHER ==
[2017-02-28 11:08] VITALS: BMI 24.7
[2017-02-28 11:09] VITALS: BP 155/83; PULSE 79; RESP 17; TEMP 98.2; O2SAT 100
--- NOTE | 2017-02-28 11:53 | ED PDOC ---
HPI: Nose Bleed Time Seen by Provider: 02/28/17 11:44 Chief Complaint (Nursing): ENT Problem Chief Complaint (Provider): nosebleed History Per: Patient History/Exam Limitations: no limitations Onset/Duration Of Symptoms: Days (3), Intermittent Episodes Current Symptoms Are (Timing): Still Present Location Of Bleeding: Left Nare Symptoms Have Been: Episodic Associated Symptoms: Nasal Congestion, Nasal Drainage. denies: Syncope, Lightheadedness, Bleeding From Gums Anticoagulant/Antiplatlet Use?: No Recent Aspirin Use: No Additional Complaint(s): 61yo M in Ed for eval of nose bleeding x3 days intermittent episodic minor note with blowing nose and using maurice pot, however Ed visit was prompted by noted blood in in his coughing but noted the bleeding stops with use of compression and tissue. PT denies: headache, dizziness nausea vomiting weakness vion changes coughing abd pain back pain hemautira pmhx of cirrhosis Past Medical History Reviewed: Historical Data, Nursing Documentation, Vital Signs Vital Signs: Last Vital Signs Temp 98.2 F 02/28/17 11:08 Pulse 79 02/28/17 11:08 Resp 17 02/28/17 11:08 BP 155/83 H 02/28/17 11:08 Pulse Ox 100 02/28/17 11:08 - Medical History PMH: Anxiety, Arthritis, Depression, Hepatitis (C), HTN, Pancreatitis, Peripheral Edema Denies: Deep Vein Thrombosis, HIV, Chronic Kidney Disease - Surgical History Surgical History: Denies: Pacemaker - Family History Family History: States: Unknown Family Hx - Immunization History Hx Tetanus Toxoid Vaccination: No Hx Influenza Vaccination: No Hx Pneumococcal Vaccination: No - Home Medications Home Medications: Ambulatory Orders Medication Instructions Recorded rifAXIMin [Xifaxan] 550 mg PO Q12 04/10/16 Nadolol [Corgard] 20 mg PO DAILY 05/09/16 Multivitamin [Multi-Vitamin Daily] 1 tab PO DAILY 07/04/16 Lactulose [Enulose] 30 gm PO QID #20 udc 12/23/16 Pantoprazole [Protonix Inj] 40 mg IVP Q12 #12 vial 12/23/16 Piperacill/Tazo 3.375gm in Dex 3.375 gm IVPB Q6 #12 bag 12/23/16 [Zosyn 3.375 Gm IV] Bacitracin OINT 1 applic TP DAILY #1 tube 02/28/17 - Allergies Allergies/Adverse Reactions: Allergies Allergy/AdvReac Type Severity Reaction Status Date / Time No Known Allergies Allergy Verified 02/28/17 11:27 Review of Systems ROS Statement: Except As Marked, All Systems Reviewed And Found Negative Constitutional: Negative for: Fever ENT: Positive for: Nose Discharge Cardiovascular: Negative for: Chest Pain, Palpitations Physical Exam - Reviewed Nursing Documentation Reviewed: Yes Vital Signs Reviewed: Yes - Physical Exam Appears: Positive for: Well, Non-toxic, No Acute Distress Skin: Positive for: Normal Color, Warm, DRY ENT: Positive for: Other (tunibate swelling noted minor bleeidng noted to left narea, no copoious bleeding noted. no post. phayrnx bleeding noted. ) Cardiovascular/Chest: Positive for: Regular Rate, Rhythm Respiratory: Positive for: CNT, Normal Breath Sounds Gastrointestinal/Abdominal: Positive for: Normal Exam, Bowel Sounds, Soft. Negative for: Tenderness Neurologic/Psych: Positive for: Alert, Oriented - ECG O2 Sat by Pulse Oximetry: 100 Medical Decision Making Medical Decision Making: no acute intervention ie packing required at this time. pt will be d.c with f.u with ENT and Bactrian applied in nare. Pt advised to put a humider in room to moisten area Disposition - Clinical Impression Clinical Impression: Nosebleed, symptom - Patient ED Disposition Is Patient to be Admitted: No Counseled Patient/Family Regarding: Diagnosis, Need For Followup, Rx Given - Disposition Referrals: [facility] [Outside] [facility] [Provider Group] Disposition: Routine/Home Disposition Time: 11:56 Condition: STABLE Prescriptions: Bacitracin OINT 1 applic TP DAILY #1 tube Instructions: Nosebleed (ED)
== END 2017-02-28 12:33 | disposition home or self-care (01) ==
LOC: H.ER 10:56
DX: R04.0 Epistaxis (principal); F32.9 Major depressive disorder, single episode, unspecified; F41.9 Anxiety disorder, unspecified; I10 Essential (primary) hypertension

== ENCOUNTER 2018-01-09 13:00 | Observation (INO) | payer OTHER ==
[2018-01-09 13:01] VITALS: BMI 24.7
--- NOTE | 2018-01-09 14:04 | ED PDOC ---
HPI: Altered Mental Status Time Seen by Provider: 01/09/18 13:18 Chief Complaint (Nursing): Altered Mental Status Chief Complaint (Provider): confused, headache History Per: Patient, Family History/Exam Limitations: Clinical Condition Onset/Duration Of Symptoms: Gradual Onset Of Symptoms: Cannot Confirm Onset Current Symptoms Are (Timing): Still Present Description Of Symptoms: Not At Baseline Usual Baseline: Alert Oriented Exacerbating Factor(s): Liver Disease Use Of Anticoag/Antiplatlets: No Severity: Moderate Additional History Per: Prior Records Additional Complaint(s): 62yo male hx cirrhosis, takes lactulose (?) presents w family member stating last few days worsening confusion, "not himself" associated w c/o mild headache. No known falls or trauma. No fever. Past Medical History Vital Signs: Last Vital Signs Temp 96.8 F L 01/09/18 13:08 Pulse 72 01/09/18 13:08 Resp 16 01/09/18 13:08 BP 131/75 01/09/18 13:08 Pulse Ox 100 01/09/18 13:08 - Medical History PMH: Anxiety, Arthritis, Depression, Hepatitis (C), HTN, Pancreatitis, Peripheral Edema Denies: Deep Vein Thrombosis, HIV (denies), Chronic Kidney Disease - Surgical History Surgical History: Denies: Pacemaker - Family History Family History: States: Unknown Family Hx - Immunization History Hx Tetanus Toxoid Vaccination: No Hx Influenza Vaccination: No Hx Pneumococcal Vaccination: No - Home Medications Home Medications: Ambulatory Orders Medication Instructions Recorded RX: Multivitamin [Multi-Vitamin 1 tab PO DAILY 07/04/16 Daily] RX: Ursodiol [Actigall] 300 mg PO Q12 10/28/17 RX: Lactulose [Generlac] 30 ml PO TID 11/10/17 Cyanocobalamin [Vitamin B12 1000 1,000 mcg PO DAILY 01/09/18 mcg Tab] Patton-3 Fatty Acids [Patton-3] 1,000 mg PO Q12 01/09/18 Pantoprazole Sodium [Protonix] 40 mg PO DAILY 01/09/18 RX: Nadolol [Corgard] 20 mg PO DAILY 01/09/18 rifAXIMin [Xifaxan] 550 mg PO Q12 01/09/18 - Allergies Allergies/Adverse Reactions: Allergies Allergy/AdvReac Type Severity Reaction Status Date / Time No Known Allergies Allergy Verified 01/09/18 13:08 Review of Systems Review Of Systems: ROS cannot be obtained secondary to pt's inabilty to answer questions. (confused) Physical Exam - Reviewed Nursing Documentation Reviewed: Yes Vital Signs Reviewed: Yes - Physical Exam Appears: Positive for: Non-toxic (confused but conversant) Head Exam: Positive for: ATRAUMATIC, NORMAL INSPECTION, NORMOCEPHALIC Skin: Positive for: Normal Color, Warm, DRY Eye Exam: Positive for: EOMI, PERRL, Scleral icterus ENT: Positive for: Normal ENT Inspection Neck: Positive for: Normal, Painless ROM Cardiovascular/Chest: Positive for: Regular Rate, Rhythm Respiratory: Positive for: CNT, Normal Breath Sounds Pulses-Radial (L): 3+/4+ Pulses-Radial (R): 3+/4+ Gastrointestinal/Abdominal: Positive for: Soft. Negative for: Tenderness Back: Positive for: Normal Inspection Extremity: Positive for: Normal ROM Neurologic/Psych: Positive for: Alert, Mood/Affect (cooperative), Gait (stable), Other (alert oriented to self/place). Negative for: Oriented, Aphasia, Facial Droop - Laboratory Results Result Diagrams: 01/09/18 17:55 01/09/18 15:45 - ECG O2 Sat by Pulse Oximetry: 100 Pulse Ox Interpretation: Normal - CT Scan/US CT brain Other Rad Studies (CT/US): Radiology Report Reviewed Medical Decision Making Medical Decision Making: labs reveal markedly elevated ammonia, lactulose initiated CT brain report reviewed Remains in bed, admit medicine radiation control worker Dr Elva MCCLAIN informed needs to be near RN station for confusion, patient has not wandered and has been redirectable in ED. Family at bedside for ED stay. Disposition - Clinical Impression Clinical Impression: Altered mental status, Headache, Hepatic encephalopathy - Patient ED Disposition Is Patient to be Admitted: Yes Counseled Patient/Family Regarding: Studies Performed, Diagnosis - Disposition Disposition Time: 16:00 Condition: FAIR - Pt Status Changed To: Hospital Disposition Of: Inpatient - Admit Certification Admit to Inpatient:: After my assessment, the patient will require hosp italization for at least two midnights. This is because of the severity of symptoms shown, intensity of services needed, and/or the medical risk in this patient being treated as an outpatient. - POA Present On Arrival: None
--- NOTE | 2018-01-09 14:35 | CT ---
Date of service: 01/09/2018 PROCEDURE: CT HEAD WITHOUT CONTRAST. HISTORY: AMS COMPARISON: 11/10/2017 TECHNIQUE: Axial computed tomography images were obtained through the head/brain without intravenous contrast. Radiation dose: Total exam DLP = 956.18 mGy-cm. This CT exam was performed using one or more of the following dose reduction techniques: Automated exposure control, adjustment of the mA and/or kV according to patient size, and/or use of iterative reconstruction technique. FINDINGS: HEMORRHAGE: No intracranial hemorrhage. BRAIN: No mass effect or edema. No significant atrophy. Minimal periventricular and patchy deep white matter lucency consistent with chronic microvascular ischemic change. No evidence of acute infarct. VENTRICLES: Unremarkable. No hydrocephalus. CALVARIUM: Unremarkable. PARANASAL SINUSES: Unremarkable as visualized. No significant inflammatory changes. MASTOID AIR CELLS: Unremarkable as visualized. No inflammatory changes. OTHER FINDINGS: None. IMPRESSION: No intracranial mass, hemorrhage or evidence of acute infarct. Mild chronic white matter ischemic change. Otherwise unremarkable examination.
[2018-01-09 16:11] LABS: ALB/GLOB RATIO 0.7 (1.0-2.1); ALBUMIN 2.6 g/dL (3.5-5.0); ALT/SGPT 43 U/L (21-72); AST/SGOT 76 U/L (17-59); BLOOD UREA NITROGEN 20 mg/dl (9-20); CALCIUM 8.9 mg/dL (8.4-10.2); GFR NON-AFRICAN AMERICAN > 60
[2018-01-09 16:43] LABS: INR 1.1; PROTHROMBIN TIME 12.9 Seconds (9.8-13.1)
[2018-01-09 18:19] LABS: BASO % 0.8 % (0.0-2.0); EOS # 0.1 K/uL (0.0-0.7); EOS % 2.9 % (0.0-4.0); HEMOGLOBIN 12.6 g/dL (12.0-18.0); LYMPH # 1.1 K/uL (1.0-4.3); LYMPH % 22.6 % (20.0-40.0); MEAN CORPUSCULAR HEMOGLOBIN 32.9 pg (27.0-31.0); MEAN CORPUSCULAR HGB CONC 33.2 g/dL (33.0-37.0); MEAN PLATELET VOLUME 8.4 fl (7.2-11.7); MONO % 20.2 % (0.0-10.0); NEUT # 2.6 K/uL (1.8-7.0); NEUT % 53.5 % (50.0-75.0); NRBC % 0.1 % (0.0-0.0); PLATELET COUNT 108 K/uL (130-400); RBC 3.82 Mil/uL (4.40-5.90); RED CELL DISTRIBUTION WIDTH 15.5 % (11.5-14.5); WHITE BLOOD COUNT 4.9 K/uL (4.8-10.8)
--- NOTE | 2018-01-09 18:39 | CARD ---
APPROVED REPORT Date of service: 01/09/2018 EKG Measurement Heart [id number] <Conclusion> Normal sinus rhythm Normal ECG
[2018-01-09 21:58] LABS: BANDS 2 % (0-2); BASOPHIL 1 % (0-2); EOSINOPHIL 3 % (0-7); LYMPHOCYTE 21 % (20-50); MONOCYTE 16 % (0-10); NEUTROPHIL 57 % (42-75); TOTAL CELLS COUNTED 100
[2018-01-09 21:59] LABS: ANISOCYTOSIS SLIGHT; PLATELET ESTIMATE SLIGHTLY DECREASED (NORMAL)
--- NOTE | 2018-01-10 09:44 | CP.PCM.CON ---
History of Present Illness - History of Present Illness History of Present Illness: Gastroenterology Consult Note- Dr. Stark 62M pmhx significant for Upper GI bleed s/p transfusions, pancreatitis, vertigo, anxiety, substance abuse, Cirrhosis, esophageal varices, hep C s/p TIPS at [place] on 12/2016 presents to [facility] ED for altered mental status over the last few days. Patient has a history of being non-compliant with his home medications. Currently AAOx3, non-focal, moving all 4 3 extremities. GI was consulted for evaluation of encephalopathy. Denies: fevers, chills, chest pain, shortness of breath, vomiting, diarrhea, blood in stool, changes in urinary or bowel habits, sudden changes in vision Of note: patient no longer goes to [place], now goes to [facility] for Hepatic workup. 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 Jazz Lewis ([facility]) Review of Systems - Review of Systems All systems: reviewed and no additional remarkable complaints except - Constitutional Constitutional: As Per HPI Past Patient History - Infectious Disease Hx of Infectious Diseases: None - Tetanus Immunizations Tetanus Immunization: Unknown - Past Medical History & Family History Past Medical History?: Yes - Past Social History Smoking Status: Current Some Days Smoker - CARDIAC Hx Hypertension: Yes Hx Pacemaker: No Hx Peripheral Edema: Yes - PULMONARY Hx Respiratory Disorders: No - NEUROLOGICAL Hx Neurological Disorder: Yes - HEENT Hx HEENT Problems: No - RENAL Hx Chronic Kidney Disease: No - ENDOCRINE/METABOLIC Hx Endocrine Disorders: Yes (Hep C, cirrhosis) - HEMATOLOGICAL/ONCOLOGICAL Hx Human Immunodeficiency Virus (HIV): No (denies) - INTEGUMENTARY Hx Dermatological Problems: Yes - MUSCULOSKELETAL/RHEUMATOLOGICAL Hx Arthritis: Yes - GASTROINTESTINAL Hx Pancreatitis: Yes - GENITOURINARY/GYNECOLOGICAL Hx Genitourinary Disorders: No - PSYCHIATRIC Hx Anxiety: Yes Hx Depression: Yes - SURGICAL HISTORY Hx Surgeries: Yes Other/Comment: TIPS procedure - ANESTHESIA Hx Anesthesia: Yes Hx Anesthesia Reactions: No Hx Malignant Hyperthermia: No Meds Allergies/Adverse Reactions: Allergies Allergy/AdvReac Type Severity Reaction Status Date / Time No Known Allergies Allergy Verified 01/09/18 13:08 - Medications Medications: Current Medications Cyanocobalamin (Vitamin B12 1000 Mcg Tab) 1,000 mcg PO DAILY [facility] Lactulose (Enulose) 20 gm PO TID [facility] Multivitamins/Minerals (Therapeutic-M Tab) 1 tab PO DAILY [facility] Nadolol (Corgard) 20 mg PO DAILY [facility] [id number] Ethyl Esters (Lovaza) 1 gm PO Q12 DI Pantoprazole Sodium (Protonix Ec Tab) 40 mg PO DAILY DI Rifaximin (Xifaxan) 550 mg PO BID DI; Protocol Ursodiol (Actigall) 300 mg PO Q12 DI Physical Exam - Constitutional Appears: Non-toxic, No Acute Distress - Head Exam Head Exam: ATRAUMATIC - Eye Exam Eye Exam: EOMI. absent: Scleral icterus - ENT Exam ENT Exam: Mucous Membranes Moist - Respiratory Exam Respiratory Exam: NORMAL BREATHING PATTERN. absent: Accessory Muscle Use, Respiratory Distress - Cardiovascular Exam Cardiovascular Exam: +S1, +S2. absent: Bradycardia, Tachycardia - GI/Abdominal Exam GI & Abdominal Exam: Distended (baseline distention), Soft. absent: Firm, Guarding, Hernia, Tenderness - Extremities Exam Extremities exam: Negative for: calf tenderness - Back Exam Back exam: absent: CVA tenderness (L), CVA tenderness (R) - Neurological Exam Neurological exam: Alert, Oriented x3 - Psychiatric Exam Psychiatric exam: Normal Affect - Skin Skin Exam: Intact, Warm Results - Vital Signs Recent Vital Signs: Last Vital Signs Temp 98.0 F 01/10/18 08:23 Pulse 62 01/10/18 08:23 Resp 21 01/10/18 08:23 BP 169/78 H 01/10/18 08:23 Pulse Ox 96 01/10/18 08:23 - Labs Result Diagrams: 01/09/18 17:55 01/09/18 15:45 Labs: Laboratory Results - last 24 hr 01/09/18 01/09/18 01/09/18 15:45 15:45 16:31 WBC RBC Hgb Hct MCV MCH MCHC RDW Plt Count MPV Neut % (Auto) Lymph % (Auto) [place] % (Auto) Eos % (Auto) Baso % (Auto) Neut # (Auto) Lymph # (Auto) [place] # (Auto) Eos # (Auto) Baso # (Auto) Neutrophils % (Manual) Band Neutrophils % Lymphocytes % (Manual) Monocytes % (Manual) Eosinophils % (Manual) Basophils % (Manual) Platelet Estimate Anisocytosis (manual) Macrocytosis (manual) PT 12.9 INR 1.1 APTT 37.0 Sodium 142 Potassium 3.9 Chloride 112 H Carbon Dioxide 22 Anion Gap 12 BUN 20 Creatinine 0.9 Est GFR ( Amer) > 60 Est GFR (Non-Af Amer) > 60 POC Glucose (mg/dL) Random Glucose 104 Calcium 8.9 Total Bilirubin 1.4 H AST 76 H ALT 43 Alkaline Phosphatase 144 H Ammonia 182 H* D Troponin I < 0.0120 Total Protein 6.6 Albumin 2.6 L Globulin 4.0 H Albumin/Globulin Ratio 0.7 L Alcohol, Quantitative < 10 01/09/18 01/09/18 17:36 17:55 WBC 4.9 RBC 3.82 L Hgb 12.6 Hct 37.9 MCV 99.0 H MCH 32.9 H MCHC 33.2 RDW 15.5 H Plt Count 108 L MPV 8.4 Neut % (Auto) 53.5 Lymph % (Auto) 22.6 [place] % (Auto) 20.2 H Eos % (Auto) 2.9 Baso % (Auto) 0.8 Neut # (Auto) 2.6 Lymph # (Auto) 1.1 [place] # (Auto) 1.0 H Eos # (Auto) 0.1 Baso # (Auto) 0.0 Neutrophils % (Manual) 57 Band Neutrophils % 2 Lymphocytes % (Manual) 21 Monocytes % (Manual) 16 H Eosinophils % (Manual) 3 Basophils % (Manual) 1 Platelet Estimate Slightly decreased L Anisocytosis (manual) Slight Macrocytosis (manual) Slight PT INR APTT Sodium Potassium Chloride Carbon Dioxide Anion Gap BUN Creatinine Est GFR ( Amer) Est GFR (Non-Af Amer) POC Glucose (mg/dL) 77 Random Glucose Calcium Total Bilirubin AST ALT Alkaline Phosphatase Ammonia Troponin I Total Protein Albumin Globulin Albumin/Globulin Ratio Alcohol, Quantitative Assessment & Plan - Assessment and Plan (Free Text) Assessment: 62M w/ hepatic encephalopathy admitted for AMS Plan: - Lactulose TID - symptoms resolving - continued care per primary team - discussed w/ Dr. Stark GI attending PGY2
[2018-01-10] MEDS: Pantoprazole 40 mg EC Tab PO SCH (10:17)
[2018-01-10] MEDS: Omega-3-Acid Ethyl Esters 1 GM Cap PO SCH ×3 (10:17→20:44)
[2018-01-10] MEDS: Multivitamin With Minerals Tab PO SCH (10:17)
[2018-01-10 12:22] LABS: MEAN CELL VOLUME 100.3 fl (80.0-94.0); MEAN CORPUSCULAR HEMOGLOBIN 33.1 pg (27.0-31.0); RBC 3.62 Mil/uL (4.40-5.90); RED CELL DISTRIBUTION WIDTH 15.2 % (11.5-14.5)
[2018-01-10 12:33] LABS: ALB/GLOB RATIO 0.6 (1.0-2.1); ALBUMIN 2.6 g/dL (3.5-5.0); ALT/SGPT 39 U/L (21-72); AST/SGOT 81 U/L (17-59); BLOOD UREA NITROGEN 16 mg/dl (9-20); CALCIUM 8.9 mg/dL (8.4-10.2); GFR NON-AFRICAN AMERICAN > 60
--- NOTE | 2018-01-10 16:10 | CP.PCM.HP ---
History of Present Illness - History of Present Illness History of Present Illness: CC AMS 62 y/o M, PMHx: Hepatitis C, Liver Cirrhosis, Encephalopathy, Upper GI bleed s/p transfusions TIPS in 12/2016, Peripheral Edema, brought to ER [facility] on 01/09/18 for evaluation of AMS for few days, gradually increasing as per family. Symptom associated to worsening confusion, with no changes. Worsening symptoms: Mild headache. Aggravated factor: Hx of non compliance with home medications. Unable to cooperate with medical history. As per records: No Fever, chills, trauma, n/v/d, abdominal pain, urinary symp toms, CP, SOB, cough, sick contact. EKG: Normal sinus rhythm. Head CT: No mass, hemorrhage or acute infarct. Mild chronic white matter changes. Present on Admission - Present on Admission Any Indicators Present on Admission: No Review of Systems - Review of Systems Systems not reviewed;Unavailable: Acuity of Condition, Altered Mental Status Past Patient History - Infectious Disease Hx of Infectious Diseases: None - Tetanus Immunizations Tetanus Immunization: Unknown - Past Medical History & Family History Past Medical History?: Yes Pertinent Family History: Unknown - Past Social History Smoking Status: Current Some Days Smoker Alcohol: Other (Last ETOH 20 yrs ago.) Drugs: Other (Former Cocaine user) - CARDIAC Hx Cardiac Disorders: Yes Hx Hypertension: Yes Hx Pacemaker: No Hx Peripheral Edema: Yes - PULMONARY Hx Respiratory Disorders: No - NEUROLOGICAL Hx Neurological Disorder: Yes Hx Dizziness: Yes - HEENT Hx HEENT Problems: No - RENAL Hx Chronic Kidney Disease: No - ENDOCRINE/METABOLIC Hx Endocrine Disorders: Yes (Hep C, cirrhosis) Other/Comment: Hepatitis C - HEMATOLOGICAL/ONCOLOGICAL Hx Blood Disorders: Yes Hx Human Immunodeficiency Virus (HIV): No (denies) Other/Comment: 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 - INTEGUMENTARY Hx Dermatological Problems: Yes - MUSCULOSKELETAL/RHEUMATOLOGICAL Hx Musculoskeletal Disorders: Yes Hx Arthritis: Yes - GASTROINTESTINAL Hx Gastrointestinal Disorders: Yes Hx Pancreatitis: Yes - GENITOURINARY/GYNECOLOGICAL Hx Genitourinary Disorders: No - PSYCHIATRIC Hx Psychophysiologic Disorder: Yes Hx Anxiety: Yes Hx Depression: Yes - SURGICAL HISTORY Hx Surgeries: Yes Other/Comment: TIPS procedure - ANESTHESIA Hx Anesthesia: Yes Hx Anesthesia Reactions: No Hx Malignant Hyperthermia: No Meds Allergies/Adverse Reactions: Allergies Allergy/AdvReac Type Severity Reaction Status Date / Time No Known Allergies Allergy Verified 01/09/18 13:08 Physical Exam - Constitutional Appears: Confused - Head Exam Head Exam: NORMAL INSPECTION - Eye Exam Eye Exam: PERRL - ENT Exam ENT Exam: Normal Exam - Neck Exam Neck exam: Positive for: Normal Inspection - Respiratory Exam Respiratory Exam: Clear to Auscultation Bilateral - Cardiovascular Exam Cardiovascular Exam: REGULAR RHYTHM - GI/Abdominal Exam GI & Abdominal Exam: Normal Bowel Sounds, Soft - Extremities Exam Extremities exam: Positive for: normal inspection - Back Exam Back exam: NORMAL INSPECTION - Neurological Exam Additional comments: Awake, confused, unable to follows commands. - Skin Skin Exam: Warm Results - Vital Signs Recent Vital Signs: Last Vital Signs Temp 98.0 F 01/10/18 08:23 Pulse 62 01/10/18 10:17 Resp 21 01/10/18 08:23 BP 169/78 H 01/10/18 10:17 Pulse Ox 96 01/10/18 08:23 reviewed Jakub - Labs Result Diagrams: 01/10/18 12:14 01/10/18 12:14 Labs: Laboratory Results - last 24 hr 01/09/18 01/09/18 01/09/18 15:45 15:45 16:31 WBC RBC Hgb Hct MCV MCH MCHC RDW Plt Count MPV Neut % (Auto) Lymph % (Auto) [place] % (Auto) Eos % (Auto) Baso % (Auto) Neut # (Auto) Lymph # (Auto) [place] # (Auto) Eos # (Auto) Baso # (Auto) Neutrophils % (Manual) Band Neutrophils % Lymphocytes % (Manual) Monocytes % (Manual) Eosinophils % (Manual) Basophils % (Manual) Platelet Estimate Anisocytosis (manual) Macrocytosis (manual) PT 12.9 INR 1.1 APTT 37.0 Sodium 142 Potassium 3.9 Chloride 112 H Carbon Dioxide 22 Anion Gap 12 BUN 20 Creatinine 0.9 Est GFR ( Amer) > 60 Est GFR (Non-Af Amer) > 60 POC Glucose (mg/dL) Random Glucose 104 Calcium 8.9 Total Bilirubin 1.4 H AST 76 H ALT 43 Alkaline Phosphatase 144 H Ammonia 182 H* D Troponin I < 0.0120 Total Protein 6.6 Albumin 2.6 L Globulin 4.0 H Albumin/Globulin Ratio 0.7 L Alcohol, Quantitative < 10 01/09/18 01/09/18 01/10/18 17:36 17:55 12:14 WBC 4.9 4.0 L RBC 3.82 L 3.62 L Hgb 12.6 12.0 Hct 37.9 36.4 MCV 99.0 H 100.3 H MCH 32.9 H 33.1 H MCHC 33.2 33.0 RDW 15.5 H 15.2 H Plt Count 108 L 130 MPV 8.4 Neut % (Auto) 53.5 Lymph % (Auto) 22.6 [place] % (Auto) 20.2 H Eos % (Auto) 2.9 Baso % (Auto) 0.8 Neut # (Auto) 2.6 Lymph # (Auto) 1.1 [place] # (Auto) 1.0 H Eos # (Auto) 0.1 Baso # (Auto) 0.0 Neutrophils % (Manual) 57 Band Neutrophils % 2 Lymphocytes % (Manual) 21 Monocytes % (Manual) 16 H Eosinophils % (Manual) 3 Basophils % (Manual) 1 Platelet Estimate Slightly decreased L Anisocytosis (manual) Slight Macrocytosis (manual) Slight PT INR APTT Sodium Potassium Chloride Carbon Dioxide Anion Gap BUN Creatinine Est GFR ( Amer) Est GFR (Non-Af Amer) POC Glucose (mg/dL) 77 Random Glucose Calcium Total Bilirubin AST ALT Alkaline Phosphatase Ammonia Troponin I Total Protein Albumin Globulin Albumin/Globulin Ratio Alcohol, Quantitative 01/10/18 01/10/18 12:14 12:14 WBC RBC Hgb Hct MCV MCH MCHC RDW Plt Count MPV Neut % (Auto) Lymph % (Auto) [place] % (Auto) Eos % (Auto) Baso % (Auto) Neut # (Auto) Lymph # (Auto) [place] # (Auto) Eos # (Auto) Baso # (Auto) Neutrophils % (Manual) Band Neutrophils % Lymphocytes % (Manual) Monocytes % (Manual) Eosinophils % (Manual) Basophils % (Manual) Platelet Estimate Anisocytosis (manual) Macrocytosis (manual) PT INR APTT Sodium 139 Potassium 4.1 Chloride 111 H Carbon Dioxide 24 Anion Gap 8 L BUN 16 Creatinine 0.8 Est GFR ( Amer) > 60 Est GFR (Non-Af Amer) > 60 POC Glucose (mg/dL) Random Glucose 99 Calcium 8.9 Total Bilirubin 2.2 H AST 81 H ALT 39 Alkaline Phosphatase 136 H Ammonia 115 H* D Troponin I Total Protein 6.9 Albumin 2.6 L Globulin 4.3 H Albumin/Globulin Ratio 0.6 L Alcohol, Quantitative reviewed J.P. - EKG Data EKG comments: reviewed J.P. - Imaging and Cardiology CT scan - head Status: Report reviewed by me (Jakub) Assessment & Plan (1) Altered mental status Status: Acute Priority: High (2) Hepatic encephalopathy Status: Chronic Priority: High (3) Liver cirrhosis Status: Chronic Priority: High - Assessment and Plan (Free Text) Plan: Continue Actigal, Corgard, Xifaxan, Protonix and rest of Tx. GI consult. - Date & Time Date: 01/10/18 Time: 15:00
[2018-01-10 16:11] VITALS: RESP 20
[2018-01-11 01:10] VITALS: TEMP 97.6
[2018-01-11 08:22] VITALS: BP 151/82; PULSE 61; O2SAT 99
[2018-01-11] MEDS: Omega-3-Acid Ethyl Esters 1 GM Cap PO SCH (09:38)
[2018-01-11] MEDS: Pantoprazole 40 mg EC Tab PO SCH (09:38)
[2018-01-11] MEDS: Multivitamin With Minerals Tab PO SCH (09:38)
--- NOTE | 2018-01-11 12:16 | CP.PCM.PN ---
Subjective - Date & Time of Evaluation Date of Evaluation: 01/11/18 Time of Evaluation: 12:14 - Subjective Subjective: Patient appears awake and alert. No complaints. Objective - Vital Signs/Intake and Output Vital Signs (last 24 hours): Temp Pulse Resp BP Pulse Ox 97.6 F 61 20 151/82 H 99 01/11/18 08:22 01/11/18 09:37 01/11/18 08:22 01/11/18 09:37 01/11/18 08:22 - Medications Medications: Current Medications Cyanocobalamin (Vitamin B12 1000 Mcg Tab) 1,000 mcg PO DAILY [facility] Last Admin: 01/11/18 09:38 Dose: 1,000 mcg Lactulose (Enulose) 20 gm PO Q6 [facility] Last Admin: 01/11/18 09:37 Dose: 20 gm Multivitamins/Minerals (Therapeutic-M Tab) 1 tab PO DAILY [facility] Last Admin: 01/11/18 09:38 Dose: 1 tab Nadolol (Corgard) 20 mg PO DAILY [facility] Last Admin: 01/11/18 09:37 Dose: 20 mg [id number] Ethyl Esters (Lovaza) 1 gm PO Q12 [facility] Last Admin: 01/11/18 09:38 Dose: 1 gm Pantoprazole Sodium (Protonix Ec Tab) 40 mg PO DAILY [facility] Last Admin: 01/11/18 09:38 Dose: 40 mg Rifaximin (Xifaxan) 550 mg PO BID [facility]; Protocol Last Admin: 01/11/18 09:38 Dose: 550 mg Ursodiol (Actigall) 300 mg PO Q12 [facility] Last Admin: 01/11/18 09:36 Dose: 300 mg - Labs Labs: 01/10/18 12:14 01/10/18 12:14 PT 12.9 Seconds (9.8-13.1) 01/09/18 16:31 INR 1.1 01/09/18 16:31 APTT 37.0 Seconds (25.6-37.1) 01/09/18 16:31 - Head Exam Head Exam: ATRAUMATIC - Eye Exam Pupil Exam: PERRL - Neck Exam Neck Exam: Full ROM - Respiratory Exam Respiratory Exam: Clear to Ausculation Bilateral - Cardiovascular Exam Cardiovascular Exam: REGULAR RHYTHM - GI/Abdominal Exam GI & Abdominal Exam: Soft, Normal Bowel Sounds. absent: Tenderness Assessment and Plan (1) Hepatic encephalopathy Assessment & Plan: Patient may be discharged today. Should comply with medical regimen to prevent relapse. Status: Chronic
--- NOTE | 2018-01-11 16:12 | CP.PCM.DIS ---
Provider - Provider Date of Admission: 01/09/18 16:54 Attending physician: Brigido Stevenson MD Consults: Gastroenterology-Dr. Stark Time Spent in preparation of Discharge (in minutes): 35 Diagnosis - Discharge Diagnosis (1) Altered mental status Status: Acute Priority: High (2) Hepatic encephalopathy Status: Chronic Priority: High (3) Liver cirrhosis Status: Chronic Priority: High Hospital Course - Lab Results Lab Results: Most Recent Lab Values WBC 4.0 K/uL (4.8-10.8) L 01/10/18 12:14 RBC 3.62 Mil/uL (4.40-5.90) L 01/10/18 12:14 Hgb 12.0 g/dL (12.0-18.0) 01/10/18 12:14 Hct 36.4 % (35.0-51.0) 01/10/18 12:14 MCV 100.3 fl (80.0-94.0) H 01/10/18 12:14 MCH 33.1 pg (27.0-31.0) H 01/10/18 12:14 MCHC 33.0 g/dL (33.0-37.0) 01/10/18 12:14 RDW 15.2 % (11.5-14.5) H 01/10/18 12:14 Plt Count 130 K/uL (130-400) 01/10/18 12:14 MPV 8.4 fl (7.2-11.7) 01/09/18 17:55 Neut % (Auto) 53.5 % (50.0-75.0) 01/09/18 17:55 Lymph % (Auto) 22.6 % (20.0-40.0) 01/09/18 17:55 [place] % (Auto) 20.2 % (0.0-10.0) H 01/09/18 17:55 Eos % (Auto) 2.9 % (0.0-4.0) 01/09/18 17:55 Baso % (Auto) 0.8 % (0.0-2.0) 01/09/18 17:55 Neut # (Auto) 2.6 K/uL (1.8-7.0) 01/09/18 17:55 Lymph # (Auto) 1.1 K/uL (1.0-4.3) 01/09/18 17:55 [place] # (Auto) 1.0 K/uL (0.0-0.8) H 01/09/18 17:55 Eos # (Auto) 0.1 K/uL (0.0-0.7) 01/09/18 17:55 Baso # (Auto) 0.0 K/uL (0.0-0.2) 01/09/18 17:55 Neutrophils % (Manual) 57 % (42-75) 01/09/18 17:55 Band Neutrophils % 2 % (0-2) 01/09/18 17:55 Lymphocytes % (Manual) 21 % (20-50) 01/09/18 17:55 Monocytes % (Manual) 16 % (0-10) H 01/09/18 17:55 Eosinophils % (Manual) 3 % (0-7) 01/09/18 17:55 Basophils % (Manual) 1 % (0-2) 01/09/18 17:55 Platelet Estimate Slightly decreased (NORMAL) L 01/09/18 17:55 Anisocytosis (manual) Slight 01/09/18 17:55 Macrocytosis (manual) Slight 01/09/18 17:55 PT 12.9 Seconds (9.8-13.1) 01/09/18 16:31 INR 1.1 01/09/18 16:31 APTT 37.0 Seconds (25.6-37.1) 01/09/18 16:31 Sodium 139 mmol/l (132-148) 01/10/18 12:14 Potassium 4.1 MMOL/L (3.6-5.0) 01/10/18 12:14 Chloride 111 mmol/L (98-107) H 01/10/18 12:14 Carbon Dioxide 24 mmol/L (22-30) 01/10/18 12:14 Anion Gap 8 (10-20) L 01/10/18 12:14 BUN 16 mg/dl (9-20) 01/10/18 12:14 Creatinine 0.8 mg/dl (0.8-1.5) 01/10/18 12:14 Est GFR ( Amer) > 60 01/10/18 12:14 Est GFR (Non-Af Amer) > 60 01/10/18 12:14 POC Glucose (mg/dL) 77 mg/dL (65-110) 01/09/18 17:36 Random Glucose 99 mg/dL (75-110) 01/10/18 12:14 Calcium 8.9 mg/dL (8.4-10.2) 01/10/18 12:14 Total Bilirubin 2.2 mg/dl (0.2-1.3) H 01/10/18 12:14 AST 81 U/L (17-59) H 01/10/18 12:14 ALT 39 U/L (21-72) 01/10/18 12:14 Alkaline Phosphatase 136 U/L (38-126) H 01/10/18 12:14 Ammonia 82 umo/L (16-60) H D 01/11/18 06:00 Troponin I < 0.0120 ng/mL (0.00-0.120) 01/09/18 15:45 Total Protein 6.9 G/DL (6.3-8.2) 01/10/18 12:14 Albumin 2.6 g/dL (3.5-5.0) L 01/10/18 12:14 Globulin 4.3 gm/dL (2.2-3.9) H 01/10/18 12:14 Albumin/Globulin Ratio 0.6 (1.0-2.1) L 01/10/18 12:14 Alcohol, Quantitative < 10 mg/dl (0-10) 01/09/18 15:45 - Date & Time of H&P Date of H&P: 01/10/18 Time of H&P: 15:00 Discharge Exam - Head Exam Head Exam: ATRAUMATIC - Eye Exam Eye Exam: PERRL - ENT Exam ENT Exam: Normal Exam - Neck Exam Neck exam: Normal Inspection - Respiratory Exam Respiratory Exam: NORMAL BREATHING PATTERN - Cardiovascular Exam Cardiovascular Exam: REGULAR RHYTHM - GI/Abdominal Exam GI & Abdominal Exam: Normal Bowel Sounds, Soft - Extremities Exam Extremities exam: normal inspection - Back Exam Back exam: NORMAL INSPECTION - Neurological Exam Additional comments: Awake, confused, unable to follow commands - Skin Skin Exam: Warm Discharge Plan - Follow Up Plan Condition: FAIR Disposition: HOME/ ROUTINE Patient education suggested?: Yes Instructions: Hepatic Encephalopathy Additional Instructions: FOLLOW UP PMD. Referrals: Brigido Stevenson MD [Staff Provider] - Jovanny Stark MD [Staff Provider] -
== END 2018-01-11 14:52 | disposition home or self-care (01) ==
LOC: H.ER 13:00 → H.ERHOLD 16:54 → INTOOBSV 16:54 → H.MEDSURG1 23:29
PROVIDERS: ADMIT Internal Medicine Pulmonary Disease; ATTEND Internal Medicine Pulmonary Disease
DX: K72.90 Hepatic failure, unspecified without coma (principal); I12.9 Hypertensive chronic kidney disease with stage 1 through stage 4 chronic kidney disease, or unspecified chronic kidney disease; K74.60 Unspecified cirrhosis of liver; N18.9 Chronic kidney disease, unspecified; Z87.891 Personal history of nicotine dependence; Z91.14 Patient's other noncompliance with medication regimen; F32.9 Major depressive disorder, single episode, unspecified; L40.9 Psoriasis, unspecified; K76.9 Liver disease, unspecified; M19.90 Unspecified osteoarthritis, unspecified site; Z86.19 Personal history of other infectious and parasitic diseases; F41.9 Anxiety disorder, unspecified
CPT/HCPCS: 36415; 70450; 80053; 80320; 82140; 82948; 84484; 85025; 85027; 85610; 85730; 93005; 99285; G0378

== ENCOUNTER 2018-02-25 13:35 | Observation (INO) | payer OTHER ==
[2018-02-25 13:35] VITALS: BMI 24.7
[2018-02-25] MEDS ORDERED: Sodium Chloride 0.9% 1,000 ML IV STA (13:52)
--- NOTE | 2018-02-25 14:09 | ED PDOC ---
HPI: Trauma/Fall - HPI Time Seen by Provider: 02/25/18 13:45 Chief Complaint (Nursing): Abdominal Pain Chief Complaint (Provider): Trauma History Per: Patient History/Exam Limitations: no limitations Onset/Duration Of Symptoms: Days (x3) Additional Complaint(s): 62 y/o male with a PMHx of hepatic failure due to hepatitis C presents to the ED for evaluation of injuries to the left side s/p fall, onset three days ago. Patient states pain is located in the left arm, left sided ribs and possible left side of the head. Patient is unsure how he fell. Otherwise, patient denies any dizziness and chest pain. Of note, patient is on lactulose for hepatic ensephalopathy. PMD: Flora Payne Past Medical History Reviewed: Historical Data, Nursing Documentation, Vital Signs Vital Signs: Last Vital Signs Temp 97.6 F 02/25/18 13:37 Pulse 63 02/25/18 13:37 Resp 18 02/25/18 13:37 BP 180/79 H 02/25/18 13:37 Pulse Ox 98 02/25/18 13:37 - Medical History PMH: Anxiety, Arthritis, Depression, Hepatitis (C), HTN, Pancreatitis, Peripheral Edema Denies: Deep Vein Thrombosis, HIV (denies), Chronic Kidney Disease Other PMH: Hepatic Ensephalopathy - Surgical History Surgical History: No Surg Hx Denies: Pacemaker - Family History Family History: States: Unknown Family Hx - Immunization History Hx Tetanus Toxoid Vaccination: No Hx Influenza Vaccination: No Hx Pneumococcal Vaccination: No - Home Medications Home Medications: Ambulatory Orders Medication Instructions Recorded Multivitamin [Multi-Vitamin Daily] 1 tab PO DAILY 07/04/16 Ursodiol [Actigall] 300 mg PO Q12 10/28/17 Lactulose [Generlac] 30 ml PO TID 11/10/17 Cyanocobalamin [Vitamin B12 1000 1,000 mcg PO DAILY 01/09/18 mcg Tab] Nadolol [Corgard] 20 mg PO DAILY 01/09/18 Hamilton-3 Fatty Acids [Hamilton-3] 1,000 mg PO Q12 01/09/18 Pantoprazole Sodium [Protonix] 40 mg PO DAILY 01/09/18 rifAXIMin [Xifaxan] 550 mg PO Q12 01/09/18 - Allergies Allergies/Adverse Reactions: Allergies Allergy/AdvReac Type Severity Reaction Status Date / Time No Known Allergies Allergy Verified 01/09/18 13:08 Review of Systems ROS Statement: Except As Marked, All Systems Reviewed And Found Negative Musculoskeletal: Positive for: Arm Pain (left), Other (left rib and possible left side of head) Physical Exam - Reviewed Nursing Documentation Reviewed: Yes Vital Signs Reviewed: Yes - Physical Exam Appears: Positive for: No Acute Distress Head Exam: Positive for: ATRAUMATIC, NORMOCEPHALIC Skin: Positive for: Normal Color, Warm, Dry Eye Exam: Positive for: Normal appearance, EOMI, PERRL Neck: Positive for: Normal, Painless ROM, Supple (non-tender) Cardiovascular/Chest: Positive for: Regular Rate, Rhythm. Negative for: Chest Non Tender (Chest wall tender to the left lateral ribs. no flail or ecchymosis.), Murmur Respiratory: Positive for: Normal Breath Sounds. Negative for: Respiratory Distress Gastrointestinal/Abdominal: Positive for: Normal Exam, Soft. Negative for: Tenderness Extremity: Positive for: Other (Ecchymosis to the left upper extremity (distal third and humerous)). Negative for: Deformity Neurologic/Psych: Positive for: Alert, Oriented (x2 (person and place)). Negative for: Motor/Sensory Deficits - Laboratory Results Result Diagrams: 02/25/18 14:30 - ECG O2 Sat by Pulse Oximetry: 98 (RA) Pulse Ox Interpretation: Normal Medical Decision Making Medical Decision Making: Time: 1352 Impression: Fall unclear if syncopal episode are related hepatic ensephalopathy. -- Will obtain imaging to rule out fracture or bleed. -- Will obtain blood work to rule out elevated ammonia level and electrolyte abnormality -- CT Head w/o Contrast -- EKG -- Ammonia -- CMP -- CBC with Differentials -- PTT -- Ribs and Chest LT XR -- Sodium Chloride 0.9% IV 100 mls/hr -- Toradol 30 mg IVP -- Humerus Left XR Scribe Attestation: Documented by Rachell Cuellar, acting as a scribe for Andrea Neves MD. Provider Scribe Attestation: All medical record entries made by the Scribe were at my direction and personally dictated by me. I have reviewed the chart and agree that the record accurately reflects my personal performance of the history, physical exam, medical decision making, and the department course for this patient. I have also personally directed, reviewed, and agree with the discharge instructions and disposition. Disposition - Clinical Impression Clinical Impression: Syncope - Patient ED Disposition Is Patient to be Admitted: Transfer of Care - Disposition Disposition: Transfer of Care Disposition Time: 14:54 Condition: FAIR Forms: YOOSE (Hungarian) Patient Signed Over To: Radha Gonzalez
[2018-02-25 14:45] LABS: BASO % 0.4 % (0.0-2.0); EOS # 0.1 K/uL (0.0-0.7); EOS % 1.5 % (0.0-4.0); HEMOGLOBIN 12.7 g/dL (12.0-18.0); LYMPH # 0.8 K/uL (1.0-4.3); MEAN CELL VOLUME 99.8 fl (80.0-94.0); MEAN CORPUSCULAR HGB CONC 33.1 g/dL (33.0-37.0); MEAN PLATELET VOLUME 8.2 fl (7.2-11.7); MONO # 0.8 K/uL (0.0-0.8); MONO % 15.7 % (0.0-10.0); NEUT # 3.6 K/uL (1.8-7.0); NEUT % 67.4 % (50.0-75.0); NRBC % 0.2 % (0.0-0.0); RBC 3.86 Mil/uL (4.40-5.90); RED CELL DISTRIBUTION WIDTH 15.8 % (11.5-14.5); WHITE BLOOD COUNT 5.4 K/uL (4.8-10.8)
[2018-02-25 14:48] LABS: INR 1.1; PROTHROMBIN TIME 12.7 Seconds (9.8-13.1)
[2018-02-25 14:54] LABS: ALB/GLOB RATIO 0.6 (1.0-2.1); BLOOD UREA NITROGEN 21 mg/dl (9-20); CALCIUM 8.9 mg/dL (8.4-10.2); GFR NON-AFRICAN AMERICAN > 60
--- NOTE | 2018-02-25 15:10 | ED PDOC ---
- Laboratory Results Result Diagrams: 02/25/18 14:30 02/25/18 14:30 - ECG O2 Sat by Pulse Oximetry: 98 (RA) Medical Decision Making Medical Decision Making: Time: 1500 --Patient is endorsed to provider by Dr. Neves, pending CT head and XR left rib/chest results. Accession No. : [id number] Patient Name / ID : JOSE LYNN / [id number] Exam Date : 02/25/2018 14:45:45 ( Approved ) Study Comment : Sex / Age : M / 62Y Creator : carlos a schroeder Dictator : Richi Ellis MD Caseworker Intake : Coal Cager : Richi Ellis MD Approver2 : Report Date : 02/25/2018 14:54:40 My Comment : Date of service: 02/25/2018 PROCEDURE: CT HEAD WITHOUT CONTRAST. HISTORY: r/o bleed COMPARISON: None available. TECHNIQUE: Axial computed tomography images were obtained through the head/brain without intravenous contrast. Radiation dose: Total exam DLP = 898.82 mGy-cm. This CT exam was performed using one or more of the following dose reduction techniques: Automated exposure control, adjustment of the mA and/or kV according to patient size, and/or use of iterative reconstruction technique. FINDINGS: HEMORRHAGE: No intracranial hemorrhage. BRAIN: No mass effect or edema. No atrophy or chronic microvascular ischemic changes. VENTRICLES: Unremarkable. No hydrocephalus. CALVARIUM: Unremarkable. PARANASAL SINUSES: Unremarkable as visualized. No significant inflammatory changes. MASTOID AIR CELLS: Unremarkable as visualized. No inflammatory changes. OTHER FINDINGS: None. IMPRESSION: Normal CT of the Head. CXR/rib series: No fx/ptx LEFT humerus: No fx/dislocation 4p On reeval pt reporting that he feels his pain radiates from his LEFT chest to LUQ/epigastric area. CT abd/pelv ordered. Further history he reports in addition to his falls, he has had 2 syncopal episodes. Exam reveals very lethargic pt oriented x 2. He appears encephalopathic despite minimally elevated ammonia level. Will hospitalize for hepatic encephalopathy and syncope and fall. ALISIA oByd for pt's PMD Dr Payne Name: LEAH GARCIA Exam Date: Feb 25, 2018 4:40:19 PM EST Modality Type: CT Description: CT - ABDOMEN AND PELVIS Gender: M Laterality: Not applicable : 57 Referring Physician: Radha Gonzalez EXAM: CT Abdomen with IV contrast CLINICAL HISTORY: Abd pain s/p fall. lt side rib cage pain. TECHNIQUE: Axial computed tomography images of the abdomen and pelvis with intravenous contrast. 468.14 mGy-cm CONTRAST: With; [id number] 90ML COMPARISON: None provided. FINDINGS: LUNG BASES: There is pleural thickening at the right lung base. Small right pleural effusion noted. LIVER: The liver is heterogeneous with cirrhotic changes present. TIPS catheter is seen at the medial aspect right lobe of the liver. GALLBLADDER AND BILE DUCTS: Gallbladder is contracted and not well evaluated. The possibility of milk of calcium bile or gallstones is not excluded. PANCREAS: Unremarkable. SPLEEN: Unremarkable. ADRENAL GLANDS: Unremarkable. KIDNEYS, URETERS, AND BLADDER: The kidneys appear within normal limits. There is no hydronephrosis or hydroureter. No urinary calculi are seen. STOMACH AND BOWEL: Unremarkable appearance of the stomach and bowel. No evidence of bowel obstruct ion. No evidence suggesting enteritis or colitis. APPENDIX: No evidence of acute appendicitis on CT examination. PERITONEUM: No free fluid. No free air. LYMPH NODES: No lymphadenopathy is evident. VASCULATURE: No evidence of abdominal aortic aneurysm. BONES: No aggressive appearing osseous lesion. No acute osseous pathology evident. IMPRESSION: Small amount of right pleural thickening and fluid present. Cirrhotic appearance to the liver with a TIPS catheter in place. Gallbladder contracted and possible gallstones or milk of calcium bile. No suspicious mass or lymphadenopathy or free fluid collection. Clinical correlation advised. Electronically signed on Feb 25, 2018 5:25:52 PM EST by: Garrick Hagen M.D., Certified by [facility], Diagnostic Radiology 530p After discussion of CT findings, pt reports he feels better and would like to go home. Has appointment with his doctor tomorrow. Advised to continue all medications. Strict fall precautions at home. Stable for discharge. Scribe Attestation: Documented by Perla Jewell, acting as a scribe for Radha Gonzalez MD. Provider Scribe Attestation: All medical record entries made by the Scribe were at my direction and personally dictated by me. I have reviewed the chart and agree that the record accurately reflects my personal performance of the history, physical exam, medical decision making, and the department course for this patient. I have also personally directed, reviewed, and agree with the discharge instructions and disposition. Disposition - Clinical Impression Clinical Impression: Liver cirrhosis, Bruised rib, Arm bruise - POA Present On Arrival: Falls Or Trauma - Disposition Disposition: Routine/Home Disposition Time: 16:30 Condition: IMPROVED
[2018-02-25 15:12] LABS: ALT/SGPT 31 U/L (21-72); AST/SGOT 78 U/L (17-59)
--- NOTE | 2018-02-25 15:35 | CT ---
Date of service: 02/25/2018 PROCEDURE: CT HEAD WITHOUT CONTRAST. HISTORY: r/o bleed COMPARISON: None available. TECHNIQUE: Axial computed tomography images were obtained through the head/brain without intravenous contrast. Radiation dose: Total exam DLP = 898.82 mGy-cm. This CT exam was performed using one or more of the following dose reduction techniques: Automated exposure control, adjustment of the mA and/or kV according to patient size, and/or use of iterative reconstruction technique. FINDINGS: HEMORRHAGE: No intracranial hemorrhage. BRAIN: No mass effect or edema. No atrophy or chronic microvascular ischemic changes. VENTRICLES: Unremarkable. No hydrocephalus. CALVARIUM: Unremarkable. PARANASAL SINUSES: Unremarkable as visualized. No significant inflammatory changes. MASTOID AIR CELLS: Unremarkable as visualized. No inflammatory changes. OTHER FINDINGS: None. IMPRESSION: Normal CT of the Head.
--- NOTE | 2018-02-25 15:53 | RAD ---
Date of service: 02/25/2018 PROCEDURE: Radiographs of the chest and bilateral ribs HISTORY: trauma COMPARISON: None available. TECHNIQUE: Frontal radiograph of the chest and multiple oblique radiographs of the bilateral ribs were obtained. FINDINGS: RIGHT RIBS: No fracture or focal lesion visualized. LEFT RIBS: No fracture or focal lesion visualized. LUNGS: Clear. PLEURA: No pneumothorax or pleural fluid. CARDIOVASCULAR: Normal cardiac size. No pulmonary vascular congestion. No aortic atherosclerotic calcification present OTHER FINDINGS: None. IMPRESSION: Unremarkable radiographs of the chest and bilateral ribs. No rib fracture.
--- NOTE | 2018-02-25 15:55 | RAD ---
Date of service: 02/25/2018 HISTORY: trauma COMPARISON: None available. FINDINGS: BONES: Normal. No fracture. JOINTS: Normal. No osteoarthritis. SOFT TISSUE: Normal. OTHER FINDINGS: None . IMPRESSION: Normal Bone Xray.
[2018-02-25] MEDS ORDERED: Iohexol 300 100 ML IJ ONE (16:30)
[2018-02-25 17:57] VITALS: BP 141/88; PULSE 58; RESP 16; TEMP 98.2; O2SAT 100
--- NOTE | 2018-02-26 11:29 | CT ---
Date of service: 02/25/2018 PROCEDURE: CT Abdomen and Pelvis with contrast HISTORY: abdominal pain s/p fall COMPARISON: 12/19/2016. TECHNIQUE: Intravenous contrast dose: 90 cc Omnipaque 300 Radiation dose: Total exam DLP = 468.14 mGy-cm. This CT exam was performed using one or more of the following dose reduction techniques: Automated exposure control, adjustment of the mA and/or kV according to patient size, and/or use of iterative reconstruction technique. FINDINGS: LOWER THORAX: Trace right pleural effusion. LIVER: Cirrhotic liver again identified. Markedly heterogeneous contrast enhancement particularly in the right lobe. Accordingly, tumor masses should be considered. Similar less pronounced changes noted previously. The findings are nonspecific. Macronodular regenerative hyperplasia can assume this appearance. If neoplasm is suspected follow-up either with three-phase CT or MRI recommended. New portosystemic shunt identified. GALLBLADDER AND BILE DUCTS: Cholelithiasis without CT evidence of acute cholecystitis. PANCREAS: Unremarkable. No gross lesion or ductal dilatation. SPLEEN: Unremarkable. ADRENALS: Unremarkable. No mass. KIDNEYS AND URETERS: Unremarkable. No hydronephrosis. No solid mass. VASCULATURE: Unremarkable. No aortic aneurysm. No atherosclerotic calcification or mural plaque present. BOWEL: Unremarkable. No obstruction. No gross mural thickening. APPENDIX: Normal appendix. PERITONEUM: Trace perihepatic/abdominal fluid noted.. No free air. LYMPH NODES: Unremarkable. No enlarged lymph nodes. BLADDER: Unremarkable. REPRODUCTIVE: Unremarkable. BONES: No acute fracture. OTHER FINDINGS: None. IMPRESSION: Cirrhotic liver. Suspicious findings in the right lobe. Follow-up recommended as described above. Portosystemic tips catheter in satisfactory position. Cholelithiasis without CT evidence of acute cholecystitis. Additional benign and/or incidental findings described above. Concordant results (preliminary interpretation) provided by Daily Dealy. Procedure Completed: 16:45. Preliminary Report: Dictated and Authenticated: 17:25. Final Interpretation: 11:25. February 26, 2018
--- NOTE | 2018-02-26 16:43 | CARD ---
APPROVED REPORT Date of service: 02/25/2018 EKG Measurement Heart [id number] <Conclusion> Sinus bradycardia Nonspecific ST abnormality Abnormal ECG
== END 2018-02-25 17:59 | disposition home or self-care (01) ==
LOC: H.ER 13:35 → H.ERHOLD 16:34
PROVIDERS: ADMIT Internal Medicine; ATTEND Internal Medicine
DX: K74.60 Unspecified cirrhosis of liver (principal); B19.20 Unspecified viral hepatitis C without hepatic coma; F41.9 Anxiety disorder, unspecified; M19.90 Unspecified osteoarthritis, unspecified site; F32.9 Major depressive disorder, single episode, unspecified; I10 Essential (primary) hypertension; R07.81 Pleurodynia; S40.022A Contusion of left upper arm, initial encounter; W19.XXXA Unspecified fall, initial encounter
CPT/HCPCS: 70450; 71101; 73060; 74177; 80053; 82140; 85025; 85610; 93005; 96374; 96375; 99284; G0378; J1885; J2405; J7030; Q9967

== ENCOUNTER 2018-07-19 10:44 | Emergency (ER) | payer OTHER ==
[2018-07-19 10:48] VITALS: BMI 24.7
[2018-07-19 11:18] VITALS: O2SAT 98
--- NOTE | 2018-07-19 13:22 | ED PDOC ---
HPI: General Adult Time Seen by Provider: 07/19/18 11:36 Chief Complaint (Nursing): Lower Extremity Problem/Injury Chief Complaint (Provider): Lower Extremity Problem/Injury History Per: Patient History/Exam Limitations: no limitations Onset/Duration Of Symptoms: Days (x 3 weeks) Current Symptoms Are (Timing): Still Present Additional Complaint(s): 62 year old male with a history of chronic hepatic disease, liver cirrhosis and hepatitis C presents to Ed with abdominal pain and distension for 3 weeks associated with a rash to bilateral lower legs for 2 days. Patient reports he was a transplant candidate and was informed by [facility] that he is no longer eligible. Patient states that the pain worsens after eating and in turn reports decreased appetite. Patient has been seen in this ED before and transferred to [facility] for elevated ammonia levels. Of note, he had a TIPS procedure done. Denies vomiting, swelling to legs and pain to legs. PMDL Dr. Flora Payne Past Medical History Reviewed: Historical Data, Nursing Documentation, Vital Signs Vital Signs: Last Vital Signs Temp 98 F 07/19/18 11:16 Pulse 87 07/19/18 11:16 Resp 18 07/19/18 11:16 BP 149/102 H 07/19/18 11:16 Pulse Ox 98 07/19/18 11:16 Primary Care Provider: Non [facility] Provider, - Medical History PMH: Anxiety, Arthritis, Depression, Hepatitis (C), HTN, Pancreatitis, Peripheral Edema Denies: Deep Vein Thrombosis, HIV (denies), Chronic Kidney Disease - Surgical History Surgical History: Denies: Pacemaker - Family History Family History: States: Unknown Family Hx - Social History Alcohol: None Drugs: Denies - Immunization History Hx Tetanus Toxoid Vaccination: No Hx Influenza Vaccination: No Hx Pneumococcal Vaccination: No - Home Medications Home Medications: Ambulatory Orders Medication Instructions Recorded Multivitamin [Multi-Vitamin Daily] 1 tab PO DAILY 07/04/16 Ursodiol [Actigall] 300 mg PO Q12 10/28/17 Lactulose [Generlac] 30 ml PO TID 11/10/17 Cyanocobalamin [Vitamin B12 1000 1,000 mcg PO DAILY 01/09/18 mcg Tab] Nadolol [Corgard] 20 mg PO DAILY 01/09/18 Naknek-3 Fatty Acids [Naknek-3] 1,000 mg PO Q12 01/09/18 Pantoprazole Sodium [Protonix] 40 mg PO DAILY 01/09/18 rifAXIMin [Xifaxan] 550 mg PO Q12 01/09/18 Dicyclomine [Bentyl] 20 mg PO QID PRN #20 tab 02/25/18 Ibuprofen [Motrin Tab] 800 mg PO Q8 PRN #30 tab 02/25/18 Diclofenac [Diclofenac Sodium] 50 mg PO DAILY 07/19/18 Levocetirizine Dihydrochloride 5 mg PO DAILY 07/19/18 [Xyzal] Meclizine [Meclizine*] 25 mg PO Q8 PRN 07/19/18 Montelukast [Singulair] 10 mg PO DAILY 07/19/18 - Allergies Allergies/Adverse Reactions: Allergies Allergy/AdvReac Type Severity Reaction Status Date / Time No Known Allergies Allergy Verified 07/19/18 11:08 Review of Systems ROS Statement: Except As Marked, All Systems Reviewed And Found Negative Gastrointestinal: Positive for: Abdominal Pain (worse after eating), Other (abdominal distension) Skin: Positive for: Rash (to bilateral lower legs) Physical Exam - Reviewed Nursing Documentation Reviewed: Yes Vital Signs Reviewed: Yes - Physical Exam Appears: Positive for: No Acute Distress Head Exam: Positive for: ATRAUMATIC, NORMAL INSPECTION, NORMOCEPHALIC Skin: Positive for: Warm, Dry, Rash (non- blanching purpuric rash to lower legs; telangiectasia) Eye Exam: Positive for: EOMI, Normal appearance, PERRL Neck: Positive for: Normal, Painless ROM, Supple Cardiovascular/Chest: Positive for: Regular Rate, Rhythm. Negative for: Murmur Respiratory: Positive for: Normal Breath Sounds. Negative for: Respiratory Dist ress Pulses-Radial (L): 2+ Pulses-Radial (R): 2+ Gastrointestinal/Abdominal: Positive for: Distended, Asicites, Other (varicose veins on abdominal wall). Negative for: Tenderness Extremity: Positive for: Normal ROM (x 4). Negative for: Deformity Neurological/Psych: Positive for: Awake, Alert, Normal Tone, Oriented (x 3). Negative for: Motor/Sensory Deficits, Facial Droop - Laboratory Results Result Diagrams: 07/19/18 13:00 07/19/18 13:00 - ECG O2 Sat by Pulse Oximetry: 98 (RA) Pulse Ox Interpretation: Normal - Progress Re-evaluation Time: 17:32 Condition: Re-examined, Improved Medical Decision Making Medical Decision Makin:35 Impression: rash and abdominal pain Differential diagnoses include but are not limited to: complications of chronic liver disease, ascites, vasculitis Initial Plan: --Ammonia --Ct Abdomen & Pelvis --CBC --CMP --PTT --PT 15:22 CT FINDINGS: LOWER THORAX: Multiple bilateral interval pulmonary nodules/masses concerning for interval pulmonary metastases Size of the prior right pleural effusion has increased. LIVER: The previously referenced cirrhotic liver with marked heterogeneity previously concerning for hepatic neoplasia is hree noted neoplasia is inferred-interval contiguous right perihepatic ascites noted. The prior right portosystemic shunt is hree noted. There is hypodensity in the enlarged intrahepatic and super hepatic IVC concerning for tumor thrombus here (axial series 2, image 12). No gross extension visualize or appreciated in the right atrium. Some web-like thread-like extension into the renal veins not excluded. GALLBLADDER AND BILE DUCTS: Cholelithiasis without gross CT suggestion of acute cholecystitis. No dilated intra or extrahepatic bile ducts seen. PANCREAS: Unremarkable. No gross lesion or ductal dilatation. SPLEEN: Measures 13.4 cm no splenic masses noted. Perisplenic ascites-an interval change.. ADRENALS: The heterogeneity in fullness to the right adrenal gland is similar to perhaps slightly increased this is also in close proximity with IVC filling defect- concerning for tumor IVC thrombus. Metastatic involvement relating to the right adrenal gland is possible. KIDNEYS AND URETERS: Unremarkable. No hydronephrosis. No solid mass. VASCULATURE: Unremarkable. No aortic aneurysm. No aortic atherosclerotic calcification or mural plaque present. BOWEL: Redundant rectosigmoid colon with stool. No obstruction. Some of the small bowel loops may have some mild the mural thickening some surrounding mesenteric edema also present. No small bowel or large bowel obstruction suspect. Associated ascites noted. APPENDIX: Grossly normal appearing there is some mesenteric edema in the right abdomen along the right colon in association likely with the ascites as well. An acute appendicitis is not believed likely. PERITONEUM: Interval increased free fluid/ascites. No free air. LYMPH NODES: Interval retrocaval lymphadenopathy short axis 2.2 cm long axis 3 cm. (Axial series 2, image 33) BLADDER: Unremarkable. REPRODUCTIVE: Unremarkable. BONES: No acute fracture appreciated. Degenerative disc disease with degenerative subchondral/vertebral endplate sclerosis-a degenerative basis is favored. Tiny degenerative cyst along each superolateral acetabulum. OTHER FINDINGS: Subcutaneous anasarca noted. IMPRESSION: The cirrhotic liver with heterogeneous hypo density amorphous yet extensive throughout the right hepatic lobe concerning for extensive neoplastic changes is hree noted interval right pleural effusion interval ascites-interval IVC thrombus without gross right atrial extension appreciated. Possible web-like extension bordering the left and right renal vein. Interval right troch able lymphadenopathy. Interval extensive bilateral pulmonary nodular metastases. Portosystemic shunt noted. Other findings as above. Comments: Study marked for PA review . --- Scribe Attestation: Documented by Yuki Goyal, acting as a scribe for Enmanuel Keyes MD. Provider Scribe Attestation: All medical record entries made by the Scribe were at my direction and persona lly dictated by me. I have reviewed the chart and agree that the record accurately reflects my personal performance of the history, physical exam, medical decision making, and the department course for this patient. I have also personally directed, reviewed, and agree with the discharge instructions and disposition. Disposition - Clinical Impression Clinical Impression: Liver cirrhosis, Ascites, IVC thrombosis - Patient ED Disposition Is Patient to be Admitted: No Doctor Will See Patient In The: Office Counseled Patient/Family Regarding: Studies Performed, Diagnosis, Need For Followup - Disposition Disposition: Against Medical Advice Disposition Time: 17:33 Condition: GOOD Additional Instructions: LEAH GARCIA JR, thank you for letting us take care of you today. Your provider was Enmanuel Keyes MD and you were treated for RASH ON BOTH LEGS ALSO SWELLING IN ABD AREA. The emergency medical care you received today was directed at your acute symptoms. If you were prescribed any medication, please fill it and take as directed. It may take several days for your symptoms to resolve. Return to the Emergency Department if your symptoms worsen, do not improve, or if you have any other problems. Please contact your doctor or call one of the physicians/clinics you have been referred to that are listed on the Patient Visit Information form that is included in your discharge packet. Bring any paperwork you were given at discharge with you along with any medications you are taking to your follow up visit. Our treatment cannot replace ongoing medical care by a primary care provider outside of the emergency department. Thank you for allowing the [facility] team to be part of your care today. If you had an X-Ray or CT scan: A Radiologist will review the ED reading if any change in treatment is needed we will contact you. If you had a blood, urine, or wound culture: It will take several days for the results, if any change in treatment is needed we will contact you. Instructions: Cirrhosis (DC), Fluid in the Belly (Ascites) (DC)
[2018-07-19] MEDS ORDERED: Iohexol 300 100 ML IJ ONE (13:26)
[2018-07-19] MEDS ORDERED: Sodium Chloride 0.9% 50 ML IV ONE (13:26)
[2018-07-19 13:27] LABS: BASO % 0.5 % (0.0-2.0); EOS # 0.1 K/uL (0.0-0.7); EOS % 0.9 % (0.0-4.0); HEMOGLOBIN 10.7 g/dL (12.0-18.0); LYMPH # 0.6 K/uL (1.0-4.3); LYMPH % 7.1 % (20.0-40.0); MEAN CELL VOLUME 100.9 fl (80.0-94.0); MEAN CORPUSCULAR HEMOGLOBIN 34.3 pg (27.0-31.0); MEAN PLATELET VOLUME 7.9 fl (7.2-11.7); MONO # 0.8 K/uL (0.0-0.8); MONO % 9.9 % (0.0-10.0); NEUT # 6.4 K/uL (1.8-7.0); NEUT % 81.6 % (50.0-75.0); NRBC % 0.2 % (0.0-0.0); PLATELET COUNT 121 K/uL (130-400); RBC 3.13 Mil/uL (4.40-5.90); RED CELL DISTRIBUTION WIDTH 17.2 % (11.5-14.5); WHITE BLOOD COUNT 7.9 K/uL (4.8-10.8)
[2018-07-19 13:30] LABS: INR 1.3; PROTHROMBIN TIME 15.3 Seconds (9.8-13.1)
[2018-07-19 13:33] LABS: PARTIAL THROMBOPLASTIN TIME 36.3 Seconds (25.6-37.1)
[2018-07-19 13:34] LABS: ALB/GLOB RATIO 0.7 (1.0-2.1); ALBUMIN 2.8 g/dL (3.5-5.0); ALT/SGPT 32 U/L (21-72); AST/SGOT 75 U/L (17-59); BLOOD UREA NITROGEN 22 mg/dl (9-20); CALCIUM 8.5 mg/dL (8.4-10.2); GFR NON-AFRICAN AMERICAN > 60
[2018-07-19 14:29] LABS: EOSINOPHIL 1 % (0-7); LYMPHOCYTE 6 % (20-50); MONOCYTE 9 % (0-10); NEUTROPHIL 84 % (42-75); TOTAL CELLS COUNTED 100
[2018-07-19 14:30] LABS: PLATELET ESTIMATE MARKEDLY DECREASED (NORMAL)
[2018-07-19 14:31] LABS: ANISOCYTOSIS SLIGHT; LARGE PLATELETS PRESENT; OVALOCYTES SLIGHT
--- NOTE | 2018-07-19 15:25 | CT ---
Date of service: 07/19/2018 PROCEDURE: CT Abdomen and Pelvis with contrast HISTORY: abdominal pain COMPARISON: 02/25/2018 TECHNIQUE: Contrast dose: 95 cc Omnipaque 300 Radiation dose: Total exam DLP = 585.7 mGy-cm. This CT exam was performed using one or more of the following dose reduction techniques: Automated exposure control, adjustment of the mA and/or kV according to patient size, and/or use of iterative reconstruction technique. FINDINGS: LOWER THORAX: Multiple bilateral interval pulmonary nodules/masses concerning for interval pulmonary metastases Size of the prior right pleural effusion has increased. LIVER: The previously referenced cirrhotic liver with marked heterogeneity previously concerning for hepatic neoplasia is hree noted neoplasia is inferred-interval contiguous right perihepatic ascites noted. The prior right portosystemic shunt is hree noted. There is hypodensity in the enlarged intrahepatic and super hepatic IVC concerning for tumor thrombus here (axial series 2, image 12). No gross extension visualize or appreciated in the right atrium. Some web-like thread-like extension into the renal veins not excluded. GALLBLADDER AND BILE DUCTS: Cholelithiasis without gross CT suggestion of acute cholecystitis. No dilated intra or extrahepatic bile ducts seen. PANCREAS: Unremarkable. No gross lesion or ductal dilatation. SPLEEN: Measures 13.4 cm no splenic masses noted. Perisplenic ascites-an interval change.. ADRENALS: The heterogeneity in fullness to the right adrenal gland is similar to perhaps slightly increased this is also in close proximity with IVC filling defect-concerning for tumor IVC thrombus. Metastatic involvement relating to the right adrenal gland is possible. KIDNEYS AND URETERS: Unremarkable. No hydronephrosis. No solid mass. VASCULATURE: Unremarkable. No aortic aneurysm. No aortic atherosclerotic calcification or mural plaque present. BOWEL: Redundant rectosigmoid colon with stool. No obstruction. Some of the small bowel loops may have some mild the mural thickening some surrounding mesenteric edema also present. No small bowel or large bowel obstruction suspect. Associated ascites noted. APPENDIX: Grossly normal appearing there is some mesenteric edema in the right abdomen along the right colon in association likely with the ascites as well. An acute appendicitis is not believed likely. PERITONEUM: Interval increased free fluid/ascites. No free air. LYMPH NODES: Interval retrocaval lymphadenopathy short axis 2.2 cm long axis 3 cm. (Axial series 2, image 33) BLADDER: Unremarkable. REPRODUCTIVE: Unremarkable. BONES: No acute fracture appreciated. Degenerative disc disease with degenerative subchondral/vertebral endplate sclerosis-a degenerative basis is favored. Tiny degenerative cyst along each superolateral acetabulum. OTHER FINDINGS: Subcutaneous anasarca noted. IMPRESSION: The cirrhotic liver with heterogeneous hypo density amorphous yet extensive throughout the right hepatic lobe concerning for extensive neoplastic changes is hree noted interval right pleural effusion interval ascites-interval IVC thrombus without gross right atrial extension appreciated. Possible web-like extension bordering the left and right renal vein. Interval right troch able lymphadenopathy. Interval extensive bilateral pulmonary nodular metastases. Portosystemic shunt noted. Other findings as above. Comments: Study marked for PA review .
[2018-07-19 18:47] VITALS: BP 130/78; PULSE 78; RESP 20; TEMP 97.6
== END 2018-07-19 18:47 | disposition home or self-care (01) ==
LOC: H.ER 10:44
DX: K74.60 Unspecified cirrhosis of liver (principal); R18.8 Other ascites; I82.220 Acute embolism and thrombosis of inferior vena cava; B19.20 Unspecified viral hepatitis C without hepatic coma; Z86.59 Personal history of other mental and behavioral disorders; I10 Essential (primary) hypertension; Z79.899 Other long term (current) drug therapy
CPT/HCPCS: 74177; 80053; 82140; 85025; 85610; 85730; 99283; Q9967